=== PATIENT | female | born 1940 | race Caucasian/White ===

== ENCOUNTER 2018-08-19 09:57 | Emergency (ER) | payer OTHER ==
--- OUTSIDE RECORDS SUMMARY | 2018-08-19 10:03 | XMS REPORT | Continuity of Care Document ---
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.[address] AMS, CVA Active [address] CVA Active [address] JES Active [facility] BILLING [address] [place] [address] Multiple Active Problem 08/18/2017 [facility] sclerosis(<span 0 Medical ID="[id number]" Center >Stable</span>) Weakness Active Problem 08/18/[address] HTN (<span Resolved Problem 08/18/2017 [facility] ID="[id number] Medical 3">Confirmed</s Center hung>) Multiple Resolved Problem 08/18/2017 [facility] Center ALTERED MENTAL Active [facility] STATUS, Medical UNSPECIFIED Center LOCAL-REL Active [facility] SYMPTC EPI W Medical CMPLX PART Center SEIZ, Medications Medication Details Route Status Patient Ordering Order Source Instructions Provider Date hydrALAZINE 50 PO, Q8H-05, 0 Active 02/07[facility] mg oral tablet Refill(s) [address] [place] [address] levETIRAcetam 1,500 mg=15 mL, Active 02/07[facility] 100 mg/mL oral [place], Q12H, [address] [facility] solution Refill(s) [place] NIFEdipine 60 mg PO, Daily, 0 Active 02/07[facility] oral tablet, Refill(s) [address] [place] [address] extended release [place] melatonin 3 mg 3 mg, PO, Active 02/07[facility] oral tablet Bedtime, 0 2016 Medical Refill(s) [place] NIFEdipine 60 mg 60 mg, 1 tab, No Longer 02/07[facility] oral tablet, Route: PO, Drug Active 2017 Medical extended release form: ERTAB, [place] Daily, Dosing Weight 52.1, kg, Start date: 02/07/17 9:00:00 CDT, Duration: 30 day, Stop date: 03/08/17 9:00:00 CSTNotes: (Same as: Adalat CC, Procardia XL) Give on empty stomach. Take 1 hour before or 2 hours after meal; "Avoid grapefruit and grapefruit juice". Do not crush NIFEdipine 30 mg 30 mg, 1 tab, No Longer [place] oral tablet, Route: PO, Drug Active 2016 Medical extended release form: ERTAB, Center Daily, Dosing Weight 52.1, kg, Start date: 02/06/17 9:00:00 CDT, Duration: 30 day, Stop date: 03/07/17 9:00:00 CSTNotes: (Same as: Adalat CC, Procardia XL) Give on empty stomach. Take 1 hour before or 2 hours after meal; "Avoid grapefruit and grapefruit juice". melatonin 3 mg, 1 tab, No Longer [place] Route: PO, Drug Active 2016 Medical Form: TAB, Center Dosing Weight 52.1, kg, Bedtime, Start date: 02/04/17 21:00:00 CDT, Duration: 30 day, Stop date: 03/05/17 21:00:00 CSTNotes: (Same as: Melatonin) Dilantin 100 mg, 4 mL, Inactive [place] Route: PO, Drug 2016 Medical form: SUSP, Center Daily, Dosing Weight 52.1, kg, Start date: 02/04/17 9:00:00 CDT, Duration: 1 doses or times, Stop date: 02/04/17 9:00:00 CDTNotes: (Same as: Dilantin) Rinse packet/syringe with water "Caution of interaction with continuous NG feedings: Withhold administration of nutritional supplements for 1-2 hours before and after phenytoin dose". Dilantin 100 mg, 4 mL, No Longer [facility] Route: PO, Drug Active 2016 Medical form: SUSP, Center Q12H, Dosing Weight 52.1, kg, Start date: 02/03/17 21:00:00 CDT, Duration: 30 day, Stop date: 03/05/17 9:00:00 CSTNotes: (Same as: Dilantin) Rinse packet/syringe with water "Caution of interaction with continuous NG feedings: Withhold administration of nutritional supplements for 1-2 hours before and after phenytoin dose". hydrALAZINE 25 50 mg, 1 tab, No Longer 02/03/ [facility] [place] mg oral tablet Route: PO, Drug Active 2016 Medical form: TAB, Center Q8H-05, Dosing Weight 52.1, kg, Start date: 02/03/17 8:00:00 CDT, Stop date: 03/04/17 21:00:00 CSTNotes: (Same as: Apresoline) May interfere w/enteral feedings Take With Food lisinopril 10 mg, 1 tab, Inactive [place] Route: PO, Drug 2016 Medical form: TAB, ONCE, Center Dosing Weight 52.1, kg, Start date: 02/02/17 21:40:00 CDT, Stop date: 02/02/17 21:40:00 CDTNotes: (Same as: Prinivil, Zestril) Dilantin 100 mg, 4 mL, No Longer 02/02/ [place] Route: PO, Drug Active 2016 Medical form: SUSP, Q8H, Center Dosing Weight 52.1, kg, Start date: 02/02/17 16:00:00 CDT, Duration: 30 day, Stop date: 03/04/17 8:00:00 CSTNotes: (Same as: Dilantin) Rinse packet/syringe with water "Caution of interaction with continuous NG feedings: Withhold administration of nutritional supplements for 1-2 hours before and after phenytoin dose". hydrALAZINE 25 25 mg, 1 tab, Inactive 02/02/ [facility] [place] mg oral tablet Route: PO, Drug 2016 Medical form: TAB, TID, Center Dosing Weight 52.1, kg, Start date: 02/02/17 9:00:00 CDT, Duration: 30 day, Stop date: 03/03/17 17:00:00 CSTNotes: (Same as: Apresoline) May interfere w/enteral feedings Take With Food. hydrALAZINE 25 25 mg, 1 tab, No Longer 10/ [facility] [place] mg oral tablet Route: PO, Drug Active 2016 Medical form: TAB, Q8H, Center Dosing Weight 52.1, kg, Start date: 02/02/17 6:36:00 CDT, Duration: 30 day, Stop date: 03/04/17 0:00:00 CSTNotes: (Same as: Apresoline) May interfere w/enteral feedings Take With Food. Insulin regular 6 unit, 0.06 mL, No Longer [facility] Route: SUB-Q, Active 2016 Medical Drug form: SOLN, [place] Sliding Scale, Dosing Weight 52.1, kg, PRN Blood Glucose Results, Start date: 02/01/17 17:19:00 CDT, Duration: 30 day, Stop date: 03/03/17 16:18:00 CSTNotes: (Same as: Humulin R) Roll in palms of hands gently; Do not shake vigorously. "single patient use only" (Restricted to patients requiring a dose > 60 units) WASTE: F/P - Black; E - [facility] Trash Bin Stable for 28 days at room temperature Expires in days from Da te Dextrose 50% 12.5 gm, 25 mL, No Longer [facility] Syringe Route: IVP, Drug Active 2016 Medical Form: INJ, Center Dosing Weight 52.1, kg, PRN, PRN Blood Glucose Results, Start date: 02/01/17 17:19:00 CDT, Duration: 30 day, Stop date: 03/03/17 16:18:00 MANAGER OF COMPENSATION glucagon 1 mg, Route: IM, No Longer [facility] Drug form: Active 2017 Medical PDR/INJ, PRN, Center Dosing Weight 52.1, kg, PRN Blood Glucose Results, Start date: 02/01/17 17:19:00 CDT, Duration: 30 day, Stop date: 03/03/17 16:18:00 MANAGER OF COMPENSATION NIFEdipine 30 mg 30 mg, 1 tab, Inactive [place] oral tablet, Route: PO, Drug 2017 Medical extended release form: ERTAB, Center Daily, Dosing Weight 52.1, kg, Start date: 02/01/17 9:00:00 CDT, Duration: 30 day, Stop date: 03/02/17 9:00:00 CSTNotes: (Same as: Adalat CC, Procardia XL) Give on empty stomach. Take 1 hour before or 2 hours after meal; "Avoid grapefruit and grapefruit juice". Do not crush NIFEdipine 30 mg 30 mg, 1 tab, Inactive [place] oral tablet, Route: PO, Drug 2017 Medical extended release form: ERTAB, Center ONCE, Dosing Weight 52.1, kg, Start date: 01/31/17 16:07:00 CDT, Stop date: 01/31/17 16:07:00 CDTNotes: (Same as: Adalat CC, Procardia XL) Give on empty stomach. Take 1 hour before or 2 hours after meal; "Avoid grapefruit and grapefruit juice". Do not crush Dilantin 100 mg, 2 mL, No Longer [facility] Route: IVP, Drug Active 2016 Medical form: INJ, Q8H, Center Dosing Weight 52.1, kg, Priority: NOW, Start date: 01/31/17 11:23:00 CDT, Duration: 30 day, Stop date: 03/02/17 8:00:00 CSTNotes: (Same as: Dilantin) Do not infuse greater than 50 mg/min. MEDICATION WASTE Product Size: 100 mg Product Wasted: ___ mg Ativan 2 mg, Route: IV, Inactive [facility] ONCE, Dosing 2016 Medical Weight 52.1, kg, Center Start date: 01/31/17 11:10:00 CDT, Stop date: 01/31/17 11:10:00 CDT Dilantin + 1,000 mg, 20 mL, Inactive [facility] sodium chloride Route: IV, ONCE, 2016 Medical 0.9% INJ 100 mL Start date: Center 01/30/17 16:00:00 CDT, Stop date: 01/30/17 16:00:00 CDTNotes: (Same as: Dilantin) Do not infuse greater than 50 mg/min. MEDICATION WASTE Product Size: 100 mg Product Wasted: _0__ mg vancomycin + 0.75 gm, Route: No Longer [facility] sodium chloride IVPB, [id number], Active 2017 Medical 0.9% 250 mL INJ Dosing Weight Center (for IV set) 250 52.1, kg, Start mL date: 01/30/17 15:00:00 CDT, Duration: 7 day, Stop date: 02/06/17 3:00:00 CDT, ABX Indication: Urinary Tract InfectionNotes: TIME CRITICAL MEDICATION (Same As: Vancocin) Infusion rate 2000 mg: infuse over 2.5 hours MEDICATION WASTE Product Size: 1000 mg Product Wasted: 250___ mg Dilantin 1 gm, Route: IV, Inactive [facility] ONCE, Dosing 2017 Medical Weight 52.1, kg, Center Priority: NOW, Start date: 01/30/17 14:36:00 CDT, Stop date: 01/30/17 14:36:00 CDT metoprolol 100 mg, 1 tab, No Longer [place] tartrate Route: PO, Drug Active 2017 Medical form: TAB, Q12H, Center Dosing Weight 52.1, kg, Start date: 01/30/17 10:11:00 CDT, Duration: 30 day, Stop date: 03/01/17 9:00:00 CSTNotes: (Same as: Lopressor) fentaNYL 25 microgram, Inactive [facility] 0.5 mL, Route: 2017 Medical IV, Drug form: Center INJ, ONCE, Dosing Weight 52.1, kg, Start date: 01/30/17 9:08:00 CDT, Stop date: 01/30/17 9:08:00 CDTNotes: (Same as: Sublimaze) Preservative free. vancomycin + 750 mg, Route: Inactive [facility] sodium chloride IVPB, [id number], 2017 Medical 0.9% 250 mL INJ Dosing Weight Center (for IV set) 250 52.1, kg, Start mL date: 01/30/17 5:30:00 CDT, Duration: 7 day, Stop date: 02/05/17 5:30:00 CDT, ABX Indication: Urinary Tract InfectionNotes: TIME CRITICAL MEDICATION (Same As: Vancocin) Infusion rate 2000 mg: infuse over 2.5 hours MEDICATION WASTE Product Size: 1000 mg Product Wasted: ___ mg fentaNYL 25 microgram, Inactive [place] Route: IV, ONCE, 2017 Medical Dosing Weight Center 52.1, kg, Start date: 01/30/17 4:56:00 CDT, Stop date: 01/30/17 4:56:00 CDT fentaNYL 25 microgram, Inactive [place] Route: IV, ONCE, 2017 Medical Dosing Weight Center 52.1, kg, Start date: 01/29/17 22:21:00 CDT, Stop date: 01/29/17 22:21:00 CDT Dextrose 50% 12.5 gm, 25 mL, No Longer [place] Syringe Route: IVP, Drug Active 2016 Medical Form: INJ, Center Dosing Weight 52.1, kg, PRN, PRN Blood Glucose Results, Start date: 01/29/17 21:54:00 CDT, Duration: 30 day, Stop date: 02/28/17 20:53:00 MANAGER OF COMPENSATION glucagon 1 mg, Route: IM, No Longer [facility] Drug form: Active 2016 Medical PDR/INJ, PRN, Center Dosing Weight 52.1, kg, PRN Blood Glucose Results, Start date: 01/29/17 21:54:00 CDT, Duration: 30 day, Stop date: 02/28/17 20:53:00 MANAGER OF COMPENSATION insulin lispro 2 unit, 0.02 mL, No Longer [facility] Route: SUB-Q, Active 2016 Medical Drug form: SOLN, Center Sliding Scale, Dosing Weight 52.1, kg, PRN Blood Glucose Results, Start date: 01/29/17 21:54:00 CDT, Duration: 30 day, Stop date: 02/28/17 20:53:00 CSTNotes: (Same as: Humalog ) Roll in palms of hands gently; Do not shake `vigorously. "Single Patient Use Only " (Restricted to patients requiring a dose > 60 units) WASTE: F/P - Black; E [facility] Trash [facility] Stable for 28 days at room temperature. Expires in days from Da te docusate sodium 100 mg, 1 cap, No Longer [place] Route: PO, Drug Active 2016 Medical form: CAP, Q12H, Center Dosing Weight 52.1, kg, Start date: 01/29/17 21:16:00 CDT, Stop date: 02/28/17 21:00:00 CSTNotes: (Same as: Colace) Lactated Ringers 500 mL, 500 Inactive [place] (Bolus) IV ml/hr, Infuse 2017 Medical Over: 1 hr, Center Route: IV, 500, Drug form: INJ, ONCE, Priority: STAT, Dosing Weight 52.1 kg, Start date: 01/29/17 19:48:00 CDT, Duration: 1 doses or times, Stop date: 01/29/17 19:48:00 CDT Azithromycin 3 500 mg, 2 tab, No Longer [place] Day Dose Pack Route: PO, Drug Active 2017 Medical 500 mg oral form: TAB, Center tablet [id number], Dosing Weight 52.1, kg, Start date: 01/29/17 9:00:00 CDT, Duration: 3 day, Stop date: 01/31/17 9:00:00 CDT, ABX Indication: PneumoniaNotes: Take 1 hour before or 2 hours after meals. (Same As: Zithromax) Saline Flush 10 ml, Route: No Longer [place] 0.9% IVP, Drug Form: Active 2016 Medical INJ, Dosing Center Weight 60, kg, Q12H, Start date: 01/29/17 9:00:00 CDT, Duration: 30 day, Stop date: 02/27/17 21:00:00 CSTNotes: (Same as: BD Posiflush) docusate 100 mg, 1 cap, Inactive [place] Route: PO, Drug 2016 Medical form: CAP, Q12H, Center Dosing Weight 60, kg, Start date: 01/29/17 9:00:00 CDT, Duration: 30 day, Stop date: 02/27/17 21:00:00 CSTNotes: (Same as: Colace) (Do Not Crush) senna 8.6 mg, 1 tab, No Longer [facility] Route: PO, Drug Active 2016 Medical Form: TAB, Center Dosing Weight 60, kg, Q12H, Start date: 01/29/17 9:00:00 CDT, Duration: 30 day, Stop date: 02/27/17 21:00:00 CSTNotes: (Same as: Senokot) famotidine 20 mg, 2 mL, No Longer [place] Route: IVP, Drug Active 2016 Medical form: INJ, Q12H, Center Dosing Weight 60, kg, Start date: 01/29/17 9:00:00 CDT, Duration: 30 day, Stop date: 02/27/17 21:00:00 CSTNotes: (Same as: Pepcid) Can be dilute in 5-10cc NS IVP: Slow IV push over at least 2 minutes. losartan 100 mg, 2 tab, No Longer [place] Route: PO, Drug Active 2016 Medical form: TAB, Center Daily, Dosing Weight 52.1, kg, Start date: 01/29/17 9:00:00 CDT, Duration: 30 day, Stop date: 02/27/17 9:00:00 CSTNotes: (Same as: Cozaar) atorvastatin 40 mg, 1 tab, No Longer [facility] Route: PO, Drug Active 2016 Medical form: TAB, Center Daily, Dosing Weight 52.1, kg, Start date: 01/29/17 9:00:00 CDT, Duration: 30 day, Stop date: 02/27/17 9:00:00 CSTNotes: (Same as: Lipitor) heparin 5,000 unit, Inactive [facility] Route: SUB-Q, 2017 Medical Q8H, Dosing Center Weight 52.1, kg, Start date: 01/29/17 8:00:00 CDT, Duration: 30 day, Stop date: 02/28/17 0:00:00 MANAGER OF COMPENSATION heparin 5,000 unit, 1 No Longer [facility] mL, Route: Active 2016 Medical SUB-Q, Drug Center form: INJ, Q8H, Dosing Weight 52.1, kg, Priority: NOW, Start date: 01/29/17 7:37:00 CDT, Duration: 30 day, Stop date: 02/28/17 0:00:00 CSTNotes: porcine heparin Azithromycin 3 500 mg, 2 tab, Inactive [facility] Day Dose Pack Route: PO, Drug 2017 Medical 500 mg oral form: TAB, Center tablet [id number], Dosing Weight 52.1, kg, Priority: STAT, Start date: 01/29/17 6:14:00 CDT, Duration: 3 day, Stop date: 01/31/17 6:14:00 CDT, ABX Indication: PneumoniaNotes: Take 1 hour before or 2 hours after meals. (Same As: Zithromax) calcium 500 mg, 1 tab, No Longer [place] carbonate 500 mg Route: PO, Drug Active 2016 Medical (200 mg form: CHE[place]AB, Center elemental PRN, Dosing calcium) oral Weight 52.1, kg, tablet PRN Abnormal Lab Result, FOR ICU USE ONLY, Start date: 01/29/17 6:12:00 CDT, Duration: 30 day, Stop date: 02/28/17 5:11:00 CSTNotes: (Same As: Tums) Calcium Carbonate 500 ih=658 mg elemental calcium Dose= mg calcium carbonate ( mg elemental calcium) calcium 1 gm, 10 mL, No Longer [place] gluconate + Route: IVPB, Active 2016 Medical sodium chloride PRN, Dosing Center 0.9% INJ 50 mL Weight 52.1, kg, PRN Abnormal Lab Result, Start date: 01/29/17 6:12:00 CDT, Duration: 30 day, Stop date: 02/28/17 5:11:00 MANAGER OF COMPENSATION, FOR ICU USE ONLYNotes: WASTE: F/P - Sink; E - [facility] Trash [facility] sodium phosphate 30 mmol, 10 mL, No Longer [place] + sodium Route: IVPB, Active 2016 Medical chloride 0.9% PRN, Dosing Center INJ 250 mL Weight 52.1, kg, PRN Abnormal Lab Result, Start date: 01/29/17 6:12:00 CDT, Duration: 30 day, Stop date: 02/28/17 5:11:00 MANAGER OF COMPENSATION, FOR ICU USE ONLY potassium 20 mEq, 15 mL, No Longer [place] chloride Route: [place], Drug Active 2016 Medical form: LIQ, PRN, Center Dosing Weight 52.1, kg, PRN Abnormal Lab Result, Start date: 01/29/17 6:12:00 CDT, Duration: 30 day, Stop date: 02/28/17 5:11:00 MANAGER OF COMPENSATION, FOR ICU USE ONLYNotes: (Same as: Potassium Chloride) potassium 15 mmol, 5 mL, No Longer [place] phosphate + Route: IVPB, Active 2016 Medical sodium chloride PRN, Dosing Center 0.9% INJ 250 mL Weight 52.1, kg, PRN Abnormal Lab Result, Start date: 01/29/17 6:12:00 CDT, Duration: 30 day, Stop date: 02/28/17 5:11:00 MANAGER OF COMPENSATION, FOR ICU USE ONLYNotes: (Same as: K Phosphate.) 1 mMol phoshate has 1.47 mEq potassium Infuse over 4 hours magnesium oxide 800 mg, 2 tab, No Longer [place] Route: PO, Drug Active 2016 Medical form: TAB, PRN, Center Dosing Weight 52.1, kg, PRN Abnormal Lab Result, FOR ICU USE ONLY, Start date: 01/29/17 6:12:00 CDT, Duration: 30 day, Stop date: 02/28/17 5:11:00 CSTNotes: (Same as: Mag-Ox 400) Magnesium oxide [id number] elemental magnesium Dose=____mg magnesium oxide (___mg elemental magnesium) potassium 2 pkt, Route: No Longer [place] phosphate-sodium PO, Drug Form: Active 2017 Medical phosphate 250 PDR/REC, Dosing Center mg-280 mg-160 mg Weight 52.1, kg, oral powder for PRN, PRN reconstitution Abnormal Lab Result, FOR ICU USE ONLY, Start date: 01/29/17 6:12:00 CDT, Duration: 30 day, Stop date: 02/28/17 5:11:00 CSTNotes: (Same as: Phos-NaK) Each 1.5 gm pkt has 250mg phosphorous. Mix w/2.5oz water and stir. magnesium 2 gm, 50 mL, No Longer [place] sulfate Route: IVPB, Active 2017 Medical Drug form: INJ, Center PRN, Dosing Weight 52.1, kg, PRN Abnormal Lab Result, Start date: 01/29/17 6:12:00 CDT, Duration: 30 day, Stop date: 02/28/17 5:11:00 MANAGER OF COMPENSATION, FOR ICU USE ONLYNotes: WASTE: F/P - Sink; E - [facility] Trash [facility] Lactated Ringers 1,000 mL, 1,000 Inactive [place] (Bolus) IV ml/hr, Infuse 2017 Medical Over: 1 hr, Center Route: IV, 1,000, Drug form: INJ, ONCE, Priority: STAT, Dosing Weight 52.1 kg, Start date: 01/29/17 6:09:00 CDT, Duration: 1 doses or times, Stop date: 01/29/17 6:09:00 CDT vancomycin + 750 mg, Route: Inactive [place] sodium chloride IV, Q12H, Dosing 2017 Medical 0.9% 250 mL INJ Weight 52.1, kg, Center (for IV set) 250 Start date: mL 01/29/17 5:35:00 CDT, Duration: 30 day, Stop date: 02/27/17 21:00:00 MANAGER OF COMPENSATION, ABX Indication: Fever of Unknown Source 0-60 days of ageNotes: TIME CRITICAL MEDICATION (Same As: Vancocin) Infusion rate 2001 mg: infuse over 2.5 hours MEDICATION WASTE Product Size: 1000 mg Product Wasted: ___ mg Plegridy 125 microgram, Active [place] SUB-Q, Q14D, 0 2016 Medical Refill(s) Center risedronate 150 150 mg=1 tab, Active [facility] mg oral tablet PO, qMonth 2017 Medical Center losartan 100 mg 100 mg=1 tab, Active [facility] oral tablet PO, Daily, 0 2016 Medical Refill(s) Center atorvastatin 40 40 mg=1 tab, PO, Active [facility] mg oral tablet Daily, 0 2016 Medical Refill(s) Center oxybutynin 50 mg, PO, Active [facility] Daily, 0 2016 Medical Refill(s) Center nitroprusside 50 mg, PO, ONCE, No Longer [facility] 0 Refill(s) Active 2017 Medical Center metoprolol 100 mg=1 tab, Active [facility] tartrate 100 mg PO, BID, 0 2016 Medical oral tablet Refill(s) Center fentaNYL 25 microgram, Inactive [place] Route: IV, ONCE, 2017 Medical Dosing Weight Center 52.1, kg, Start date: 01/29/17 4:11:00 CDT, Stop date: 01/29/17 4:11:00 CDT cefepime 1 gm, Route: IV, No Longer [facility] Drug form: INJ, Active 2017 Medical Q6H, Dosing Center Weight 52.1, kg, Start date: 01/29/17 4:04:00 CDT, Duration: 30 day, Stop date: 02/28/17 0:00:00 MANAGER OF COMPENSATION, ABX Indication: Fever of Unknown Source 0-60 days of ageNotes: (Same As: Maxipime) MEDICATION WASTE Product Size: 1000 mg Product Wasted: ___ mg Keppra 1,500 mg, 3 tab, No Longer [place] Route: [place], Drug Active 2016 Medical form: TAB, Q12H, Center Dosing Weight 52.1, kg, Start date: 01/29/17 3:34:00 CDT, Stop date: 02/27/17 21:00:00 CSTNotes: (Same as:Keppra) Visipaque 100 mL, Route: Inactive [place] 320mg/ml IVP, Drug Form: 2016 Medical SOLN, Dosing Center Weight 52.1, kg, ONCALL, STAT, Start date: 01/29/17 2:54:00 CDT, Duration: 1 doses or times, Dose=2.2ml/kg, Max [id number] -- "To be infused by Radiology Staff ONLY" ocular lubricant 1 drp, Route: No Longer [place] BOTH EYES, Q6H, Active 2016 Medical Drug form: SOLN, Center Start date: 01/29/17 0:00:00 CDT, Duration: 30 day, Stop date: 02/27/17 18:00:00 CSTNotes: (Same as: Aquasite) Lactated Ringers 1,000 mL, 1,000 No Longer [place] (Bolus) IV ml/hr, Infuse Active 2016 Medical Over: 1 hr, Center Route: IV, 1,000, Drug form: INJ, ONCE, Priority: STAT, Dosing Weight 60 kg, Start date: 01/28/17 23:55:00 CDT, Duration: 1 doses or times, Stop date: 01/28/17 23:55:00 CDT Tylenol 325 mg, 1 tab, No Longer [place] Route: PO, Drug Active 2016 Medical form: TAB, Q6H, Center Dosing Weight 60, kg, PRN For Temp > 100.4 F, Start date: 01/28/17 22:05:00 CDT, Duration: 30 day, Stop date: 02/27/17 22:04:00 CSTNotes: Do not exceed 4 gm/day. (Same as: Tylenol) Saline Flush 10 ml, Route: No Longer [place] 0.9% IVP, Drug Form: Active 2016 Medical INJ, Dosing Center Weight 60, kg, PRN, PRN Line Flush, Start date: 01/28/17 21:19:00 CDT, Duration: 30 day, Stop date: 02/27/17 20:18:00 CSTNotes: (Same as: BD Posiflush) nystatin topical 1 appl, Route: No Longer [place] 100,000 units/g TOP, PRN, Drug Active 2016 Medical powder form: PWDR, PRN [facility], Start date: 01/28/17 21:19:00 CDT, Duration: 30 day, Stop date: 02/27/17 20:18:00 CSTNotes: (Same as:Mycostatin, Nilstat) For external use only. BD Normal Saline 10 mL, Route: No Longer [place] Flush IV, Drug Form: Active 2016 Medical INJ, Q12H, Start Center date: 01/28/17 21:00:00 CDT, Duration: 30 day, Stop date: 02/27/17 9:00:00 CSTNotes: (Same as: BD Posiflush) chlorhexidine 15 mL, Route: No Longer [place] topical 0.12% Swab Mouth, Active 2016 Medical liquid Q12H, Drug form: [place] LIQ, Start date: 01/28/17 21:00:00 CDT, Duration: 30 day, Stop date: 02/27/17 9:00:00 CSTNotes: (Same As: Peridex) chlorhexidine 15 mL, Route: No Longer [place] topical 0.12% Swab Mouth, PRN, Active 2016 Medical liquid Drug form: [facility] PRN Other -See Comment, Start date: 01/28/17 20:24:00 CDT, Duration: 30 day, Stop date: 02/27/17 19:23:00 CSTNotes: (Same As: Peridex) labetalol 10 mg, Route: Inactive [place] IV, ONCE, Dosing 2017 Medical Weight 60, kg, Center Start date: 01/28/17 20:21:00 CDT, Stop date: 01/28/17 20:21:00 CDT cefepime 1 gm, Route: Inactive [place] IVPB, ONCE, 2017 Medical Dosing Weight Center 60, kg, Priority: STAT, Start date: 01/28/17 16:53:00 CDT, Duration: 1 doses or times, Stop date: 01/28/17 16:53:00 CDT, ABX Indication: Pneumonia vancomycin 1,000 mg, Route: Inactive [place] IVPB, Drug form: 2017 Medical INJ, ONCE, Center Dosing Weight 60, kg, Priority: STAT, Start date: 01/28/17 16:53:00 CDT, Duration: 1 doses or times, Stop date: 01/28/17 16:53:00 CDT, ABX Indication: PneumoniaNotes: TIME CRITICAL MEDICATION (Same As: Vancocin) Infusion rate 2001 mg: infuse over 2.5 hours MEDICATION WASTE Product Size: 1000 mg Product Wasted: ___ mg propofol INJ 1,000 mg, 100 No Longer [place] 1,000 mg mL, Rate: Active 2017 Medical Titrate, Start Center Dose: 5 microgram/kg/min , Titration: 5 microgram/kg/min every 15 min, Goal(s): RASS -2, Max Dose: 50 microgram/kg/min , Route: IV, Dosing Weight 60 kg, Total Volume: 100, Start date: 01/28/17 16:51:00 CDT, Duratio...Notes: If Diprivan - change bottle & tubing every 12 hr Per state nursing law propofol can only be given by a nurse if patient is intubated or being intubated (unless the nurse is a OCEANOGRAPHER PHYSICAL). Same as: Diprivan propofol 500 mg 500 mg, 50 mL, Inactive [place] Rate: Titrate, 2016 Medical Start Dose: 5 Center microgram/kg/min , Titration: 5 microgram/kg/min every 15 min, Goal(s): MAP 65-85, Max Dose: 50 microgram/kg/min , Route: IV, Dosing Weight 60 kg, Total Volume: 50, Start date: 01/28/17 16:14:00 CDT, Duration:... fentaNYL 1,000 microgram, No Longer 01/28/ [facility] 1000microgram/20 20 mL, Rate: Active 2016 Medical ml drip (pyxis) Titrate, Start Center 1,000 microgram Dose: 50 microgram/hr, Titration: 25 microgram/hour every 15 minutes, Goal(s): MAP>65, Max Dose: 300 microgram/hr, Route: IV, Total Volume: 20, Start date: 01/28/17 15:07:00 CDT, Duration: 30 day, Stop date... midazolam 50mg/ 50 mg, 50 mL, Inactive [facility] NS 50ml drip Rate: Titrate, 2016 Medical (premixed) 50 mg Start Dose: 1 Center mg/hr, Titration: Rebolus 1 mg IV and/or Titrate infusion by 1 mg/hour every 30 minutes, Goal(s): MAP>65, Max Dose: 10 mg/hr, Route: IV, Total Volume: 50, Start date: 01/28/17 15:07:00 CDT, Duration: 30 day,...Notes: (Same as: Versed) Saline Flush 10 mL, Route: No Longer 01/28/ [facility] 0.9% IVP, Drug Form: Active 2016 [facility] INJ, kg, PRN, Center PRN Line Flush, Start date: 01/28/17 15:04:00 CDT, Duration: 30 day, Stop date: 02/27/17 14:03:00 CSTNotes: (Same as: BD Posiflush) Allergies, Adverse Reactions, Alerts Substance Category Reaction Severity Reaction Status Date Comments Source type Reported penicillins Assertion Drug Active [facility] allergy [facility] sulfa drugs Assertion Drug Active [facility] [place] Immunizations Immunization Date Given Site Status Last Comments Source Updated pneumococcal 10/15/2005 Right arm completed [facility] 23-valent vaccine [facility] Results Order Name Results Value Reference Date Interpretation Comments Source Range CHEM PANEL eGFR 99 02/04 Result Comment: The eGFR is calculated using the CKD-EPI formula. In most young, healthy individuals the eGFR will be >90 mL/ min/1.73m2. The eGFR declines with age. An eGFR of 60-89 may be normal in [facility] mL/min/1.7 /2016 some populations, particularly the elderly, for whom the CKD-EPI formula has not been extensively validated. Use of the eGFR is not recommended in the following populations: [address] Individuals with unstable creatinine concentrations, including patients and those with serious co-morbid conditions. Patients with extremes in muscle mass or diet. The data above are obtained from the National Kidney Disease Education Program (NKDEP) which additionally recommends that when the eGFR is used in patients with extremes of body mass index for purposes of drug dosing, the eGFR should be multiplied by the estimated BMI. CHEM PANEL CO2 22 meq/L 24 - 32 02/[address] CHEM PANEL Chloride Lvl 105 meq/L 95 - 109 02/[address] CHEM PANEL Calcium Lvl 8.6 mg/dL 8.5 - 10.5 02/[address] CHEM PANEL Glucose Lvl 143 mg/dL 70 - 99 02/[address] CHEM PANEL Sodium Lvl 137 meq/L 135 - 145 02/[address] CHEM PANEL Potassium Lvl 4.1 meq/L 3.5 - 5.1 02/[address] CHEM PANEL Creatinine 0.46 mg/dL 0.50 - 02/04 [facility] Lvl 1.40 [facility] CHEM PANEL BUN 22 mg/dL 7 - 22 02/[address] CHEM PANEL AGAP 14.1 meq/L 10.0 - 02/04 [facility] 20.0 [facility] HEMATOLOGY Basophils # 0.1 K/CMM 0.0 - 0.2 02/[address] HEMATOLOGY Basophils 1.0 % 0.0 - 1.0 02/[address] HEMATOLOGY Segs-Bands # 5.2 K/CMM 1.5 - 8.1 02/[address] HEMATOLOGY Lymphocytes # 1.6 K/CMM 1.0 - 5.5 02/[address] HEMATOLOGY Monocytes # 1.2 K/CMM 0.0 - 0.8 02/[address] HEMATOLOGY Eosinophils # 0.2 K/CMM 0.0 - 0.5 02/[address] HEMATOLOGY Eosinophils 2.7 % 0.0 - 4.0 02/[address] HEMATOLOGY Monocytes 14.1 % 2.0 - 12.0 02/04 [facility] HEMATOLOGY Lymphocytes 19.5 % 20.0 - 02/04 40.0 [facility] HEMATOLOGY Segs 62.7 % 45.0 - 02/04 75.0 [facility] HEMATOLOGY RDW 13.3 % 11.5 - 02/04 [place] 14.5 [facility] HEMATOLOGY Platelet 179 K/CMM 133 - 450 02/04 [facility] HEMATOLOGY MPV 9.9 fL 7.4 - 10.4 02/04 [facility] HEMATOLOGY MCHC 34.3 g/dL 32.0 - 02/04 [facility] 36.0 [facility] HEMATOLOGY Hgb 11.7 g/dL 12.0 - 02/04 [facility] 16.0 [facility] HEMATOLOGY Hct 34.0 % 36.0 - 02/04 48.0 [facility] HEMATOLOGY MCV 90.1 fL 80.0 - 02/04 98.0 [facility] HEMATOLOGY MCH 30.9 pg 27.0 - 02/04 [place] 31.0 [facility] HEMATOLOGY WBC 8.3 K/CMM 3.7 - 10.4 02/04 [facility] HEMATOLOGY RBC 3.78 M/CMM 4.20 - 02/04 [facility] 5.40 [facility] Abdomen AP Abdomen AP DX EXAM: XR ABDOMEN 1 VIEW 02/03 - - [facility] DATE: 02/03/2017 7:37 AM CDT Read by: Sinan Marshall MD Dictated Date/time: 02/03/17 13:21 Electronically Signed by: Sinan Marshall MD 02/03/17 13:22 FINAL REPORT INDICATION: - Dobbhoff placement COMPARISON: 01/28/2017 TECHNIQUE: Single AP view of the abdomen. 1 image(s) obtained. FINDINGS: Lines and tubes: Feeding tube tip overlies the gastric antrum. Guidewire is in place. Lower thorax: Left retrocardiac airspace opacity. This may represent singly or any combination of layering pleural effusion, subsegmental atelectasis and/or pneumonia. Bowel: Nonobstructive bowel gas pattern. Solid organs: No abnormal mass or organomegaly seen. Calcifications: No abnormal calcifications found. Bones: No acute abnormality. Other: None IMPRESSION: 1. Tubes, as above. 2. Nonobstructive bowel gas pattern. CHEM PANEL Phosphorus 2.6 mg/dL 2.5 - 4.5 02/03 [facility] CHEM PANEL eGFR 102 02/03 Result Comment: The eGFR is calculated using the CKD-EPI formula. In most young, healthy individuals the eGFR will be >90 mL/ min/1.73m2. The eGFR declines with age. An eGFR of 60-89 may be normal in [facility] mL/min/1. some populations, particularly the elderly, for whom the CKD-EPI formula has not been extensively validated. Use of the eGFR is not recommended in the following populations: [address] Individuals with unstable creatinine concentrations, including patients and those with serious co-morbid conditions. Patients with extremes in muscle mass or diet. The data above are obtained from the National Kidney Disease Education Program (NKDEP) which additionally recommends that when the eGFR is used in patients with extremes of body mass index for purposes of drug dosing, the eGFR should be multiplied by the estimated BMI. CHEM PANEL Calcium Lvl 8.4 mg/dL 8.5 - 10.5 02/03 [facility] CHEM PANEL CO2 25 meq/L 24 - 32 02/[address] CHEM PANEL Glucose Lvl 170 mg/dL 70 - 99 02/[address] CHEM PANEL BUN 17 mg/dL 7 - 22 02/[address] CHEM PANEL Chloride Lvl 105 meq/L 95 - 109 02/[address] CHEM PANEL Creatinine 0.41 mg/dL 0.50 - 02/03 [facility] Lvl 1.40 [facility] CHEM PANEL Sodium Lvl 137 meq/L 135 - 145 02/[address] CHEM PANEL Potassium Lvl 4.9 meq/L 3.5 - 5.1 02/[address] CHEM PANEL AGAP 11.9 meq/L 10. - 02/03 [facility] 20. [facility] CHEM PANEL Magnesium Lvl 2.2 mg/dL 1.8 - 2.4 02/[address] CHEM PANEL Procalcitonin 0.31 ng/mL 0.00 - 02/03 [facility] Lvl 0. [facility] HEMATOLOGY Hgb 12.3 g/dL 12.0 - 02/03 [facility] 16.0 [facility] HEMATOLOGY Hct 35.9 % 36.0 - 02/03 48.0 [facility] HEMATOLOGY MCHC 34.2 g/dL 32.0 - 02/03 36.0 [facility] HEMATOLOGY MCH 30.9 pg 27.0 - 02/03 31.0 [facility] HEMATOLOGY MCV 90.4 fL 80.0 - 02/03 98.0 [facility] HEMATOLOGY WBC 6.9 K/CMM 3.7 - 10.4 02/03 [facility] HEMATOLOGY RBC 3.97 M/CMM 4.20 - 02/03 [place] 5.40 [facility] HEMATOLOGY MPV 10.4 fL 7.4 - 10.4 02/03 [facility] HEMATOLOGY Platelet 146 K/CMM 133 - 450 02/03 [facility] HEMATOLOGY RDW 13.5 % 11.5 - 02/03 14.5 [facility] HEMATOLOGY Eosinophils 1.7 % 0.0 - 4.0 02/03 [facility] HEMATOLOGY Monocytes 15.3 % 2.0 - 12.0 02/03 [facility] HEMATOLOGY Lymphocytes 18.8 % 20.0 - 02/03 40.0 [facility] HEMATOLOGY Segs 63.8 % 45.0 - 02/03 [facility] 75.0 [facility] HEMATOLOGY Lymphocytes # 1.3 K/CMM 1.0 - 5.5 02/03 2016 [facility] HEMATOLOGY Monocytes # 1.1 K/CMM 0.0 - 0.8 02/03 [facility] HEMATOLOGY Eosinophils # 0.1 K/CMM 0.0 - 0.5 02/03 [facility] HEMATOLOGY Segs-Bands # 4.4 K/CMM 1.5 - 8.1 02/03 [facility] HEMATOLOGY Basophils 0.4 % 0.0 - 1.0 02/03 [facility] CHEM PANEL Phosphorus 2.3 mg/dL 2.5 - 4.5 02/[address] [place] [address] CHEM PANEL Phosphorus 1.8 mg/dL 2.5 - 4.5 02/02 [facility] CHEM PANEL Magnesium Lvl 2.0 mg/dL 1.8 - 2.4 02/02 [facility] CHEM PANEL Procalcitonin 0.59 ng/mL 0.00 - 02/02 [facility] Lvl 0. [facility] CHEM PANEL eGFR 98 02/02 Result Comment: The eGFR is calculated using the CKD-EPI formula. In most young, healthy individuals the eGFR will be >90 mL/ min/1.73m2. The eGFR declines with age. An eGFR of 60-89 may be normal in [facility] mL/min/1. some populations, particularly the elderly, for whom the CKD-EPI formula has not been extensively validated. Use of the eGFR is not recommended in the following populations: [address] Individuals with unstable creatinine concentrations, including patients and those with serious co-morbid conditions. Patients with extremes in muscle mass or diet. The data above are obtained from the National Kidney Disease Education Program (NKDEP) which additionally recommends that when the eGFR is used in patients with extremes of body mass index for purposes of drug dosing, the eGFR should be multiplied by the estimated BMI. CHEM PANEL Calcium Lvl 8.2 mg/dL 8.5 - 10.5 02/02 [facility] CHEM PANEL Chloride Lvl 108 meq/L 95 - 109 02/[address] CHEM PANEL AGAP 11.5 meq/L 10.0 - 02/02 20. [facility] CHEM PANEL CO2 25 meq/L 24 - 32 02/[address] CHEM PANEL Creatinine 0.47 mg/dL 0.50 - 02/02 [facility] Lvl 1.40 [facility] CHEM PANEL Potassium Lvl 4.5 meq/L 3.5 - 5.1 02/02 [facility] CHEM PANEL Sodium Lvl 140 meq/L 135 - 145 02/[address] [place] [address] CHEM PANEL BUN 16 mg/dL 7 - 22 02/02 [facility] CHEM PANEL Glucose Lvl 145 mg/dL 70 - 99 02/[address] HEMATOLOGY RDW 13.6 % 11.5 - 02/02 [facility] 14. [facility] HEMATOLOGY Platelet 126 K/CMM 133 - 450 02/[address] HEMATOLOGY MPV 9.6 fL 7.4 - 10.4 02/02 [facility] HEMATOLOGY WBC 6.6 K/CMM 3.7 - 10.4 02/02 [facility] HEMATOLOGY RBC 3.83 M/CMM 4.20 - 02/02 5.40 [facility] HEMATOLOGY MCHC 33.7 g/dL 32.0 - 02/02 36.0 [facility] HEMATOLOGY MCH 30.6 pg 27.0 - 02/02 31.0 [facility] HEMATOLOGY Hgb 11.7 g/dL 12.0 - 02/02 16.0 [facility] HEMATOLOGY Hct 34.8 % 36.0 - 02/02 48.0 [facility] HEMATOLOGY MCV 90.8 fL 80.0 - 02/02 98.0 [facility] HEMATOLOGY Eosinophils # 0.1 K/CMM 0.0 - 0.5 02/02 [facility] HEMATOLOGY Monocytes # 0.9 K/CMM 0.0 - 0.8 02/02 [facility] HEMATOLOGY Lymphocytes # 1.8 K/CMM 1.0 - 5.5 02/02 [facility] HEMATOLOGY Basophils 0.7 % 0.0 - 1.0 02/02 [facility] HEMATOLOGY Segs-Bands # 3.8 K/CMM 1.5 - 8.1 02/02 [facility] HEMATOLOGY Eosinophils 1.1 % 0.0 - 4.0 02/02 [facility] HEMATOLOGY Lymphocytes 26.8 % 20.0 - 02/02 40.0 [facility] HEMATOLOGY Monocytes 13.1 % 2.0 - 12.0 02/02 [facility] HEMATOLOGY Segs 58.3 % 45.0 - 02/02 [place] 75.0 [facility] PARATHYROID Ca Ion WB 1.04 1.05 - 02/02 [facility] PROFILE mMol/L . [facility] PARATHYROID Ca Norm WB 1.08 1. - 02/02 [facility] PROFILE mMol/L . [facility] Brain w/wo Brain w/wo EXAM: MRI BRAIN WITH AND WITHOUT CONTRAST 02/02 - [facility] contrast contrast MRI /2016 - [facility] MRI This report was dictated by a Nat Instructor/Fellow. I have personally reviewed the images as Center well as the Resident's interpretation and agree with the findings. DATE: 02/02/2017 Read by: Roula Barrett MD Resident: Roula Barrett MD Dictated Date/time: 02/02/17 10:50 Electronically Signed by: Sotero Winters 02/02/17 15:51 FINAL REPORT INDICATION: - Seizures with decreased level of consciousness, not improved , concerns for brain injury COMPARISON: MRI brain dated 01/29/2017 TECHNIQUE: Multiplanar, multisequence non-contrast MRI images of the brain. Multiplanar imaging is subsequently obtained following intravenous gadolinium contrast. IV contrast: 10 mL of Dotarem FINDINGS: No significant change is seen relative to 01/29/2017. Extensive confluent T2/FLAIR hyperintensity in the subcortical and periventricular white matter is redemonstrated. Diffuse prominence of the ventric les and cerebral sulci is stable. There is no evidence of extra-axial fluid collection or midline shift. Diffusion-weighted imaging does not reveal acute ischemic change. No abnormal parenchymal or leptomeningeal enhancement is seen. There is persistent opacification of the left maxillary sinus with scattered mucosal thickening of the paranasal sinuses. No abnormal susceptibility artifact is seen. IMPRESSION: 1. No adverse interval change relative to 01/29/2017. 2. 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 CHEM PANEL Magnesium Lvl 1.9 mg/dL 1.8 - 2.4 02/01 [facility] CHEM PANEL Lactic Acid 1.3 mMol/L 0.5 - 2.2 02/01 [facility] PARATHYROID Ca Ion WB 1.10 . - 02/01 [facility] PROFILE mMol/L . [facility] PARATHYROID Ca Norm WB 1.13 1. - 02/01 [facility] PROFILE mMol/L . [facility] TOXICOLOGY Vanco Tr TND 0300 02/01 [facility] TOXICOLOGY Vanco Tr 16.4 ug/ml 02/01 [facility] ANEMIA Vitamin B12 1271 pg/mL 254 - 1320 01/31 [facility] CHEM PANEL Vitamin B6 6.8 ug/L 2.0 - 32.8 01/31 Result Comment: Performed At: [facility] [address] [place] [address] [id number] [facility] Tam Hui MD Ph:[phone] [place] CHEM PANEL Procalcitonin 1.36 ng/mL 0.00 - 01/31 [facility] 0. [facility] CHEM PANEL Lactic Acid 1.5 mMol/L 0.5 - 2.2 01/31 [facility] HEMATOLOGY Sed Rate 21 mm/h 0 - 20 01/31 [facility]2016 [facility] IMMUNOLOGY SS-B (La) Ab null <=0.9 AI 01/31 [facility] IMMUNOLOGY SS-A (Ro) Ab null <=0.9 AI 01/31 [facility] IMMUNOLOGY C-REACTIVE 36.5 mg/L <=2.9 mg/L 01/31 [facility] CHEM PANEL Lactic Acid 1.8 mMol/L 0.5 - 2.2 01/31 [facility] PARATHYROID Ca Norm WB 1.11 1.05 - 01/31 [facility] PROFILE mMol/L 1. [facility] PARATHYROID Ca Ion WB 1.11 1.05 - 01/31 [facility] PROFILE mMol/L 1. [facility] TOXICOLOGY Vanco Tr TND 0530 01/30 [facility] TOXICOLOGY Vanco Tr 8.0 ug/ml 01/[address] Chest 1view Chest 1view EXAM: XR CHEST 1 VIEW 01/30 - [facility] DX DX - [facility] DATE: 01/30/2017 12:00 AM CDT Read by: Jack Torres MD Dictated Date/time: 01/30/17 07:47 Electronically Signed by: Jack Torres MD 01/30/17 07:48 FINAL REPORT INDICATION: - intubated COMPARISON: 01/28/2017 TECHNIQUE: AP chest FINDINGS: Lines, tubes and hardware: The endotracheal tube and gastric tube are stable in position. Lungs and pleura: Hazy infrahilar opacities are seen bilaterally, possibly corresponding to the groundglass opacity seen on the recent CT, possibly representing aspiration, other infection, and/or atele ctasis. No pleural effusion or pneumothorax is seen. Heart and mediastinum: The heart size is normal for technique. The aorta is tortuous and calcified. Bones: The osseous structures are stable. IMPRESSION: 1. Bilateral infrahilar airspace opacities, possibly representing aspiration, other infection, and/or atelectasis. Brain w/wo Brain w/wo EXAM: MRI BRAIN WITH AND WITHOUT CONTRAST 01/29 - [facility] contrast contrast MRI /2017 - [facility] DATE: 01/29/2017 Read by: Yehuda Stevens MD Dictated Date/time: 01/29/17 19:06 Electronically Signed by: Yehuda Stevens MD 01/29/17 19:18 FINAL REPORT INDICATION: Concern for stroke COMPARISON: Brain CT dated 01/28/2017 TECHNIQUE: Multiplanar, multisequence non-contrast MRI images of the brain. Multiplanar imaging is subsequently obtained following intravenous gadolinium contrast. IV contrast: 10 mL Dotarem FINDINGS: Some of the DWI images are limited by distortion. However, no diffusion restriction is evident. Susceptibility weighted images fail to disclose any underlying acute intracranial hemorrhage. No intracranial mass or extra-axial collection is evident. A small round T2 hyperintense, nonenhancing focus in the right cerebellum is nonspecific and likely represent sequela of prior insult. A similar but smaller lesion is present in the left cerebellum. The re is diffuse cerebral and cerebellar volume loss with associated ventriculomegaly in widening of the extra-axial spaces. There are confluent T2 hyperintensities in the periventricular/deep white matter . There are superimposed lacunar infarcts in the basal ganglia and thalami. The ventricles and basal cisterns are patent. Ventriculomegaly is present without suggestion of ventriculo-sulcal disproportion. The flow voids of the major arteries at the cranial base are preserved. Post-contrast images reveal no abnormal parenchymal or leptomeningeal enhancement. The vascular structures enhance uneventfully. Again, there is diffuse T2 signal elevation within the left maxillary antrum. There are nonspecific mucosal changes in the rest of the paranasal sinuses. Trace mastoid effusions an flow within the depen dent portions of the nasopharynx are nonspecific. IMPRESSION: No acute intracranial hemorrhage or recent large territory ischemia Advanced chronic microvascular ischemic changes in the white matter with superimposed multifocal lacunar infarcts. T2 hyperintense lesions in the cerebellum likely also represent sequela of remote insults. Diffuse cortical volume loss with ventriculomegaly. No suggestion of ventriculo-sulcal disproportion ANEMIA Vitamin B12 1449 pg/mL 254 - 1320 01/29 [facility] STUDY Lvl /2016 [facility] CARDIAC Troponin-T 0.010 0.000 - 10/21 [facility] ENZYMES ng/mL 0.100 [facility] CARDIAC Troponin-I 0.11 ng/mL 0.00 - 01/29 [facility] ENZYMES 0.40 [facility] CHEM PANEL Vitamin B6 5.4 ug/L 2.0 - 32.8 01/29 Result Comment: Performed At: [facility] [address] [place], [place] [id number] [facility] Melissa Hui MD Ph:[phone] [facility] HEMATOLOGY Sed Rate 5 mm/h 0 - 01/29 [facility] IMMUNOLOGY C-ANCA Negative Negative 01/29 [facility] (01/29/17 10:25 AM) [facility] IMMUNOLOGY P-ANCA Negative Negative 01/29 [facility] (01/29/17 10:25 AM) [facility] IMMUNOLOGY C-REACTIVE 49.7 mg/L <=2.9 mg/L 01/29 [facility] IMMUNOLOGY SS-B (La) Ab null <=0.9 AI 01/29 [facility] IMMUNOLOGY SS-A (Ro) Ab null <=0.9 AI 01/29 [facility] IMMUNOLOGY YANDY Negative Negative 01/29 [facility] (01/29/17 10:25 AM) [facility] IMMUNOLOGY DNA Ab (DS) Negative Negative 01/29 [facility] (01/29/17 10:25 AM) [facility] CARDIAC Troponin-T 0.015 0.000 - 01/29 [facility] ENZYMES ng/mL 0. [facility] CARDIAC Troponin-I 0.18 ng/mL 0.00 - 01/29 [facility] ENZYMES 0. [facility] CHEM PANEL Lipase Lvl 125 unit/L 73 - 393 01/29 [facility] CHEM PANEL Amylase Lvl 165 unit/L 25 - 115 01/29 [facility]2016 [facility] Gallbladder Gallbladder EXAM: US ABDOMEN LIMITED 01/29 - [facility] /2016 - [facility] This report was dictated by a Nat Instructor/Fellow. I have personally reviewed the images as Center well as the Resident's interpretation and agree with the findings. DATE: 01/29/2017 6:32 AM CDT Read by: Siva Barlow MD Resident: Siva Barlow MD Dictated Date/time: 01/29/17 11:46 Electronically Signed by: Jluis Turner MD 01/29/17 12:40 FINAL REPORT INDICATION: - rule out acute cholecystitis ADDITIONAL INFORMATION: None. COMPARISON: CTA 01/29/2017. TECHNIQUE: Multiplanar grayscale and color Doppler ultrasound of the right upper quadrant. FINDINGS: Liver: Craniocaudal length: 14.1 cm. Echogenicity: Normal. Surface: Normal. Mass (size and location): None. Portal vein: Normal at 0.8 cm. Bile ducts: Common bile duct diameter: 0.4 cm. Intrahepatic ducts: Normal. Gallbladder: Gallstones: None. Gallbladder sludge: None. Gallbladder wall: 0.2 cm. Pericholecystic fluid: None. Sonographic Escobedo sign: Absent. Pancreas: Head and uncinate process: Partially seen. Body and tail: Not seen. Spleen: Normal measuring 9.0 x 4.0 x 4.3 cm. Ascites: None. Other: Bilateral small pleural effusions. IMPRESSION: 1. No evidence of acute cholecystitis. 2. Bilateral small pleural effusions. BACTERIAL - Source Strep Urine 01/29 [facility] SEROLOGY [facility] *NA* [place] (01/29/17 12:17 AM) BACTERIAL - Strep Negative Negative 01/29 [facility] SEROLOGY pneumoniae [facility] (01/29/17 12:17 AM) [facility] DRUG SCREEN U Opiate Scr Negative Negative 01/29 [facility] *NA* [facility] (01/29/17 12:17 AM) DRUG SCREEN U Cannab Scr Negative Negative 01/29 [facility] *NA* [place] (01/29/17 12:17 AM) DRUG SCREEN U Cocaine Scr Negative Negative 01/29 [facility] *NA* [place] (01/29/17 12:17 AM) DRUG SCREEN U Benzodia Positive Negative 01/29 [facility] Scr [facility] *ABN* [place] (01/29/17 12:17 AM) DRUG SCREEN U Wendy Scr Negative Negative 01/29 [facility] *NA* [place] (01/29/17 12:17 AM) DRUG SCREEN UDS Note See Note 01/29 [facility] (01/29/17 12:17 AM) Center DRUG SCREEN U Phencyc Scr Negative Negative 01/29 [facility] *NA* [place] (01/29/17 12:17 AM) DRUG SCREEN U Amph Scr Negative Negative 01/29 [facility] *NA* Center (01/29/17 12:17 AM) Chest Chest EXAM: CTA CHEST WITH CONTRAST 01/29 - [facility] Pulmonary Pulmonary /2016 - Medical Embolism Embolism CTA This report was dictated by a Nat Instructor/Fellow. I have personally reviewed the images as Center CTA well as the Resident's interpretation and agree with the findings. DATE: 01/28/2017 11:26 PM CDT Read by: Jennifer Valdes MD Resident: Jennifer Valdes MD Dictated Date/time: 01/29/17 05:38 Electronically Signed by: Jack Torres MD 01/29/17 07:38 FINAL REPORT INDICATION: - seizure activity, hypoxic, tachypneic, rule out PE COMPARISON: No prior CT for comparison, chest radiograph 01/28/2017 TECHNIQUE: Volumetric CT acquisition of the chest, during pulmonary arterial phase, after intravenous contrast. Axial, sagittal, coronal, and oblique MIP reconstructions are created at the acquisition workstation. IV Contrast: 60 mL of Visipaque 320 DLP: 520 mGy-cm FINDINGS: Lines and tubes: The endotracheal tube is approximately 3 cm above the primo. A gastric tube courses through the esophagus and into the stomach with its tip not visualized on this study. Lower neck: The right thyroid lobe is missing. A 3 mm hypodense nodule is seen in the thyroid isthmus. Heart, Mediastinum, and Great Vessels: Cardiothoracic ratio measures 11.4/ 22.4. Mild reflux of contrast into the IVC is noted. The RV/LV ratio is less than 0.9. No significant pericardial effusion is id entified. Measurements and appearance of the thoracic aorta are normal. At the same level where the ascending aorta measures 3.1 cm the pulmonary trunk measures 2.2 cm. There is no pulmonary embolus. Lymph Nodes: There is no hilar, mediastinal, axillary or internal mammary lymphadenopathy. Lungs: Patchy groundglass opacities with subtle tree-in-bud nodularity is seen in the posterior aspect of the right upper lobe and dependent aspects of both lower lobes. Mild dependent enhancing atelect asis is seen in both lower lobes. Mild bronchial wall thickening is seen in both lower lobes. A focus of mucus plugging is seen in the right lower lobe. Pleura: Mild biapical pleural thickening/scarring is noted. Small bilateral pleural effusions are present. No pneumothorax is seen. Esophagus and Upper abdomen: The partially visualized gallbladder demonstrates edema of the gallbladder wall with pericholecystic fluid. Bones and soft tissues: A sclerotic focus in the T8 vertebral body likely represents a bone island. No aggressive osseous lesion is seen. Mild kyphosis of the upper thoracic spine is noted. IMPRESSION: 1. No pulmonary embolus. 2. Patchy groundglass opacities with tree-in-bud nodularity in the posterior right upper lobe and dependent regions of both lower lobes with mild associated lower lobe bronchial wall thickening and rig ht lower lobe mucus plugging. This may represent aspiration pneumonia/ pneumonitis or other infectious/inflammatory process. A follow-up CT thorax is recommended in 3 months after appropriate treatment. 3. Partially visualized edematous gallbladder wall with pericholecystic fluid, nonspecific. A right upper quadrant ultrasound is recommended for further evaluation. Brain wo Brain wo EXAM: CT BRAIN WITHOUT CONTRAST 01/29 [facility] contrast CT contrast CT /2016 - [facility] This report was dictated by a Nat Instructor/Fellow. I have personally reviewed the images as Center well as the Resident's interpretation and agree with the findings. DATE: 01/29/2017 at 450 Read by: Aroldo Espino MD Resident: Aroldo Espino MD Dictated Date/time: 01/29/17 08:18 Electronically Signed by: Yehuda Stevens MD 01/29/17 12:05 FINAL REPORT INDICATION: Left-sided weakness, rule out stroke COMPARISON: CT brain dated 01/28/2017 TECHNIQUE: Axial CT images of the brain were obtained. Sagittal and coronal reformats. IV contrast: None DLP: 4155 mGy-cm FINDINGS: No acute intracranial hemorrhage, mass effect or midline shift. No extra- axial fluid collections. Global volume loss with associated compensatory ventricular dilatation. Confluent subcortical/periventri cular white matter hypodensities are noted in both cerebral hemispheres. Basilar cisterns are patent. Intraocular lens replacement is noted bilaterally. Mucous retention cyst in the left maxillary sinus. Other paranasal sinuses and mastoid air cells are clear. No acute osseous findings. Atherosclerosis. IMPRESSION: No adverse interval change. No hemorrhage. Further evaluation with MRI should be considered if there is clinical concern for an acute ischemic event. Brain/Neck Brain/Neck EXAM: CTA BRAIN 01/29 - [facility] Stroke Stroke /2016 - Medical perfusion perfusion CTA This report was dictated by a Nat Instructor/Fellow. I have personally reviewed the images as Center CTA well as the Resident's interpretation and agree with the findings. EXAM: CTA NECK Read by: Aroldo Espino MD Resident: Aroldo Espino MD Dictated Date/time: 01/29/17 08:21 Electronically Signed by: Yehuda Stevens MD 01/29/17 11:59 FINAL REPORT EXAM: CT PERFUSION BRAIN DATE: 04/30/2016 at 451 INDICATION: Rule out stroke, vasculitis COMPARISON: Same day CT brain without contrast, CT brain dated 01/28/2017 TECHNIQUE: - Dynamic CT perfusion images on a limited area of the brain parenchyma are performed during bolus injection of iodinated contrast material. Color maps of relative cerebral blood flow, relative cerebral blood volume, time to peak, and mean transit time are created on an independent workstation and are submitted along with the source image data. -Rapid acquisition spiral CT images of the brain and neck were obtained between the aortic arch and the cranial vertex during intravenous infusion of iodinated contrast for the purposes of CT angiograph y. 3-D CT angiographic images are created using MIP technique at the acquisition workstation. The source images are also presented for interpretation. IV contrast: 100 mL Visipaque 320 DLP: 4155 mGy-cm FINDINGS: NECK CTA: Aortic arch: The great vessels originate from the aortic arch in the standard configuration. Atherosclerotic calcifications at the origin of left subclavian artery. There is however no origin stenosis o f major vessels.. The vertebral artery origins are patent bilaterally. Carotid arteries: The cervical common carotid arteries and cervical internal carotid arteries are patent. There are minimal areas of noncalcified atherosclerotic plaque at the carotid bifurcations. No h emodynamically significant stenosis of the carotid bifurcations or internal carotid arteries is evident, by NASCET criteria. Vertebral arteries: The extracranial vertebral arteries are patent, without signs of flow-limiting dissection or stenosis. The soft tissues of the neck and other incidental structures are unremarkable. BRAIN CTA: Anterior circulation: There is a laterally oriented 5 mm aneurysm in the right cavernous carotid artery on series 6 image 71. Both cavernous carotid arteries are patent with scattered calcifications. Di stal internal carotid artery bifurcates into normal caliber anterior and middle cerebral arteries. No branch occlusion or flow-limiting stenosis. Posterior circulation: Both vertebral arteries, basilar artery and bilateral posterior cerebral arteries are patent. origin of left LATHE HAND is noted. The deep cerebral veins and major venous sinuses are normal. The brain parenchyma and other incidental structures are unremarkable. CT PERFUSION: There is no regional abnormality in cerebral blood flow, cerebral blood volume, or transit time in the imaged areas of the brain to suggest active oligemia or infarction. RAPID SUMMARY: CBF (<30%) volume: 0 mL Perfusion (Tmax>6.0s) volume: mL Mismatch volume: 0 mL Mismatch ratio: None CT soft tissue neck. Endotracheal and enteric tubes are noted. No enlarged cervical lymph nodes. Visualized lung apices demonstrate biapical pleural thickening/scarring. Multilevel degenerative changes of the cervical and upper thoracic spine. No acute osseous findings. Incidental note is made of bilateral palatine cherie. IMPRESSION: 1. 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 No flow -limiting stenosis or branch occlusion in the intracranial vasculature 2. No hemodynamically significant stenosis in the cervical carotid and extracranial vertebral arteries 3. Normal CT perfusion 4. Incidental palatine cherie [All qualitative and quantitative assessments of carotid bifurcation and proximal internal carotid artery stenosis are made at referencing the distal internal carotid artery.] [Cerebral perfusion analysis using computed tomography with contrast administration, including post-processing of parametric maps with determination of cerebral blood flow (CBF), cerebral blood volume (CBV) and mean transit time (MTT).] BACTERIAL - MRSA by PCR Negative 01/[address] [facility] Troponin-T 0.017 0.000 - 01/29 [facility] ENZYMES ng/mL 0.100 [facility] CARDIAC Troponin-I 0.15 ng/mL 0.00 - 01/29 [facility] ENZYMES 0.40 [facility] CARDIAC BNP 372 pg/mL <=100 01/29 [facility] ENZYMES pg/mL /2016 [facility] CHEM PANEL Bili Total 0.5 mg/dL 0.2 - 1.3 01/29 [facility] CHEM PANEL Alk Phos 74 unit/L 39 - 136 01/29 [facility]2016 [facility] CHEM PANEL Albumin Lvl 3.0 g/dL 3.5 - 5.0 01/29 [facility] CHEM PANEL ALT 36 unit/L 0 - 65 01/29 [facility] CHEM PANEL Total Protein 6.0 g/dL 6.4 - 8.4 01/29 [facility] CHEM PANEL AST 32 unit/L 0 - 37 01/29 [facility] CHEM PANEL Globulin 3.0 g/dL 2.7 - 4.2 01/29 [facility] CHEM PANEL A/G Ratio 1.0 0.7 - 1.6 01/29 [facility] CHEM PANEL B/C Ratio 16 6 - 25 01/29 [facility] HEMATOLOGY INR 1.14 0.85 - 01/29 [place] 1.17 [facility] HEMATOLOGY PTT 29.4 s 22.9 - 01/29 [place] 35.8 [facility] HEMATOLOGY PT 14.6 s 12.0 - 01/29 [facility] 14.7 [facility] LIPIDS VLDL 19 01/29 [facility] LIPIDS Trig 96 mg/dL <=149 01/29 [facility] mg/dL [facility] LIPIDS Chol 110 mg/dL <=199 01/29 [facility] mg/dL [facility] LIPIDS HDL 47 mg/dL >=61 mg/dL 01/29 [facility] LIPIDS LDL 44 mg/dL <=99 mg/dL 01/29 [facility] (Calculated) [facility] LIPIDS CHD Risk 2.34 3.90 - 01/29 [facility] 5.80 [facility] MOLECULAR RSV PCR Negative Negative 01/[address] [facility] (01/28/17 9:31 PM) [place] MOLECULAR Influenza A Negative Negative 01/29 [facility] DIAGNOSTIC PCR [facility] (01/28/17 9:31 PM) [place] MOLECULAR Influenza B Negative Negative 01/29 [facility] DIAGNOSTIC PCR Medical (01/28/17 9:31 PM) Center MOLECULAR Source Flocked MACARONI MAKER Swab 01/29 [facility] DIAGNOSTIC Respiratory Medical Panel PCR (01/28/17 9:31 PM) Center SPECIAL Hgb A1C 5.8 % <=5.6 % 01/29 [facility] CHEMISTRY [facility] BODY FLUIDS WBC CSF 0 /mm3 0 - 53 01/28 [facility] BODY FLUIDS RBC CSF 2 /mm3 0 - 03 01/28 [facility] BODY FLUIDS Clarity CSF Clear Clear 01/28 Medical (10/20/17 4:55 PM) [place] BODY FLUIDS Color CSF Colorless Colorless 01/28 [facility] (01/28/17 4:55 PM) [place] BODY FLUIDS Tube Num CSF 4 01/28 [facility] BODY FLUIDS Supernat CSF Colorless Colorless 01/28 [facility] (01/28/17 4:55 PM) [place] Abdomen AP Abdomen AP DX EXAM: XR ABDOMEN 1 VIEW 01/28 [facility] DATE: 01/28/2017 9:23 PM CDT Read by: Víctor Adler Dictated Date/time: 01/29/17 02:55 Electronically Signed by: Víctor Adler 01/29/17 02:56 FINAL REPORT INDICATION: - NG tube placement ADDITIONAL INFORMATION: None. COMPARISON: None. TECHNIQUE: Limited AP view of the abdomen for tube placement assessment. Number of images: 1 FINDINGS: Enteric suction tube tip in the stomach with sidehole at the GE junction. IMPRESSION: Enteric suction tube tip in the stomach with sidehole at the GE junction. Advancement by 5 cm recommended. Chest 1view Chest 1view EXAM: XR CHEST 1 VIEW 01/28 [facility] DATE: 01/28/2017 9:19 PM CDT Read by: Jack Torres MD Dictated Date/time: 01/28/17 21:57 Electronically Signed by: Jack Torres MD 01/28/17 21:59 FINAL REPORT INDICATION: - intubated COMPARISON: Chest radiograph 01/28/2017 TECHNIQUE: AP chest FINDINGS: Lines, tubes and hardware: The endotracheal tube and gastric tube are stable in position. Lungs and pleura: The lungs are hyperinflated. Interval resolution of the left lower lung airspace opacity is noted, which likely represented atelectasis. The costophrenic sulci are sharp. No definite p neumothorax is seen. Pulmonary vascularity is normal. Heart and mediastinum: The heart size is normal for technique. The aorta is mildly tortuous and calcified. Bones: No acute bony abnormality is identified. IMPRESSION: 1. Interval resolution of the left lower lung airspace opacity, which likely represented atelectasis. BODY FLUIDS Glucose CSF 61 mg/dL 45 - 80 01/28 [facility] BODY FLUIDS Protein CSF 47 mg/dL 15 - 45 01/28 [facility] BODY FLUIDS RBC CSF 67 /mm3 0 - 03 01/28 [facility] BODY FLUIDS Clarity CSF Clear Clear 01/28 [facility] (01/28/17 4:24 PM) [place] BODY FLUIDS WBC CSF 1 /mm3 0 - 53 01/28 [facility] BODY FLUIDS Supernat CSF Colorless Colorless 01/28 [facility] (01/28/17 4:24 PM) [place] BODY FLUIDS Color CSF Colorless Colorless 01/28 [facility] (01/28/17 4:24 PM) [place] BODY FLUIDS Tube Num CSF 1 01/28 [facility] IMMUNOLOGY Alb CSF (CPE) 26.4 mg/dL 14.0 - 01/28 [place] 25. [facility] IMMUNOLOGY Alb (CPE) 2700.0 3400.0 - 01/28 [facility] mg/dL 5000. [facility] IMMUNOLOGY IgG (CPE) 759 mg/dL 694 - 1618 01/28 [facility] IMMUNOLOGY IgG Lvl CSF 4.5 mg/dL 2.0 - 4.0 01/28 [facility] IMMUNOLOGY IgG Index 0.6 mg/dL 0.3 - 0.7 01/28 [facility] IMMUNOLOGY Description The gel 01/28 [facility] demonstr [facility] appropriat e resolution of the main protein bands. The gamma region shows continuous distributi on of proteins both in the CSF and in the serum. No oligoclona l bands are detected. IMMUNOLOGY PE Interp CSF CSF 01/28 [facility] [place] resis did not reveal evidence of an oligoclona l process in the CENTR[employer]AL SPINNER. The CSF IgG index is within the reference range indicating that there is no elevation in intracereb ral IgG synthesis. The CSF/serum albumin ratio is elevated. In the absence of a significan t amount of RBCs in the CSF specimen (2/mm3), this is consistent with increased permeabili ty of the blood brain barrier. electronic medical record has been reviewed for relevant history.I have personally reviewed the test results and concur with the resident's interpreta tion.CPT: 50496-NM URINE AND UA Blood Large Negative 01/28 [facility] *ABN* [place] (01/28/17 3:30 PM) URINE AND UA Bili Negative Negative 01/28 [facility] Medical *NA* [place] (01/28/17 3:30 PM) URINE AND UA Ketones Negative Negative 01/[address] [facility] *NA* [place] (01/28/17 3:30 PM) URINE AND UA Nitrite Negative Negative 01/28 [facility] (01/28/17 3:30 PM) [place] URINE AND UA Leuk Est Small Negative 01/[address] [facility] *ABN* Center (01/28/17 3:30 PM) URINE AND UA 0.2 EU/dL 0.1 - 1.0 01/28 [facility] Urobilinogen [facility] URINE AND UA Turbidity Slight Cloudy Clear 01/[address] [facility] (01/28/17 3:30 PM) [place] URINE AND UA Spec Grav 1.025 <=1.030 01/28 [facility] URINE AND UA pH 6.5 5.0 - 8.0 01/28 [facility] [address] [place] [address] URINE AND UA Protein >=300 Negative 01/28 [facility] mg/dL mg/dL [facility] URINE AND UA Glucose Negative Negative 01/[address] [facility] (01/28/17 3:30 PM) [place] URINE AND UA Color Yellow Yellow 01/[address] [facility] *NA* [place] (01/28/17 3:30 PM) URINE AND UA WBC 6-10 /HPF None Seen 01/28 [facility] STOOL /HPF [address] [place] [address] URINE AND UA Sq Epi Occasional Few /LPF 01/28 [facility] STOOL /LPF [facility] URINE AND UA Bacteria Occasional None Seen 01/28 [facility] STOOL /HPF /HPF [facility] URINE AND UA RBC 11-20 /HPF 0 - 2 01/28 [facility] CARDIAC Total CK 40 unit/L 12 - 191 01/28 [facility] ENZYMES [facility] CHEM PANEL AST 21 unit/L 0 - 37 01/[address] CHEM PANEL Total Protein 5.2 g/dL 6.4 - 8.4 01/[address] CHEM PANEL ALT 27 unit/L 0 - 65 01/[address] CHEM PANEL Albumin Lvl 2.5 g/dL 3.5 - 5.0 01/[address] CHEM PANEL Alk Phos 62 unit/L 39 - 136 01/[address] CHEM PANEL Globulin 2.7 g/dL 2.7 - 4.2 01/[address] CHEM PANEL Bili Indirect 0.4 mg/dL 0.0 - 1.0 01/[address] CHEM PANEL A/G Ratio 0.9 0.7 - 1.6 01/[address] CHEM PANEL Bili Direct 0.1 mg/dL 0.0 - 0.3 01/[address] CHEM PANEL Bili Total 0.5 mg/dL 0.2 - 1.3 01/[address] HEMATOLOGY RBC Morph Normal 01/[address] [facility] (01/28/17 3:00 PM) [place] HEMATOLOGY Plt Morph Normal 01/[address] [facility] (01/28/17 3:00 PM) [place] Brain wo Brain wo CT HEAD WITHOUT CONTRAST 01/28 [facility] contrast CT contrast CT [facility] DATE: Read by: Jluis Johnson MD Dictated Date/time: 01/28/17 15:43 Electronically Signed by: Jluis Johnson MD 01/28/17 15:45 FINAL REPORT COMPARISON: None. HISTORY: - AMS. TECHNIQUE: Contiguous axial images of the brain were obtained without intravenous contrast administration. Sagittal and coronal reformats were also provided. DLP: 753.9 mGy-cm. FINDINGS: There are no acute hemorrhages or acute infarcts. The lopes-white interfaces are well defined. Low density is noted within the periventricular white matter consistent with chronic small vessel ischemic disease. There is prominence of the cortical sulci, fissures, cisterns and ventricles consistent with cortical atrophy. There are no acute bony abnormalities. The calvarium is intact. Atherosclerotic calcification is noted within the payton of the bilateral vertebral and cavernous internal carotid arteries. Large mucous r etention cyst is noted filling the left maxillary sinus. IMPRESSION: 1. No acute intracranial abnormality. 2. Age related volume loss. 3. White matter hypodensity consistent with chronic small vessel ischemic disease. 4. Arterial atherosclerosis. 5. Large left maxillary sinus mucus retention cyst. Chest 1view Chest 1view EXAM: XR CHEST 1 VIEW 01/28 - [facility] DX DX - Medical This report was dictated by a Nat Instructor/Fellow. I have personally reviewed the images as Center well as the Resident's interpretation and agree with the findings. DATE: 01/28/2017 at 1509 hours Read by: Tello Anaya MD Resident: Tello Anaya MD Dictated Date/time: 01/28/17 15:12 Electronically Signed by: Calli Brandt MD 01/28/17 15:19 FINAL REPORT INDICATION: Altered mental status COMPARISON: None. TECHNIQUE: AP chest FINDINGS: Lines, tubes and hardware: The endotracheal tube tip projects 4.7 cm above the primo. A gastric suction tube passes below the diaphragm, with the side- port overlying the gastric esophageal junction. Lungs and pleura: The lungs are hyperinflated with left basilar airspace opacity. Pulmonary vascularity is normal. Heart and mediastinum: The heart size is normal for technique. Vascular calcifications are present at the aorta. Bones: No acute bony abnormality is identified. IMPRESSION: 1. Endotracheal tube tip 4.7 cm above the primo. Gastric suction tube side -port in the region of the gastroesophageal junction. Consider advancement. 2. Left retrocardiac airspace opacity may represent atelectasis or pneumonia/aspiration Vital Signs Vital Sign Value Date Comments Source Temperature Oral (F) 97.6 F 02/08/2017 [facility] Heart Rate 76 02/08/2017 [facility] Respitory Rate 16 02/08/2017 [facility] Systolic (mm Hg) 147 02/08/2017 [facility] Diastolic (mm Hg) 74 02/08/2017 [facility] Systolic (mm Hg) 188 02/08/2017 [facility] Diastolic (mm Hg) 88 02/08/2017 [facility] Heart Rate 66 02/08/2017 [facility] Respitory Rate 18 02/08/2017 [facility] Temperature Oral (F) 97.7 F 02/08/2017 [facility] Systolic (mm Hg) 148 02/08/2017 [facility] Diastolic (mm Hg) 74 02/08/2017 [facility] Temperature Oral (F) 97.9 F 02/08/2017 [facility] Respitory Rate 18 02/08/2017 [facility] Heart Rate 62 02/08/2017 [facility] Height 162.56 cm 01/30/2017 [facility] Height 162.56 cm 01/30/2017 [facility] Height 162.56 cm 01/30/2017 [facility] Weight 52.1 01/29/2017 [facility] BMI Calculated 19.72 01/29/2017 [facility] Weight 60 01/28/2017 [facility] Weight 60 01/28/2017 [facility] Encounters Location Location Encounter Encounter Reason Attending ADM DC Status Source Details Type Number For Provider Date Date Visit [facility] [id number] Richard 01/28 02/08 [facility] Kendra /2016 [facility] [id number] Makenna 05/12 05/13 [facility] Procedures Procedure Code Date Perfomer Comments Source Dental appliance [id number] Root canal & [facility] component<sup>1< dental bridge Medical /sup> Center
--- OUTSIDE RECORDS SUMMARY | 2018-08-19 10:05 | XMS REPORT ---
:1940 Author Organization [employer] Care Team Providers Name Role Phone Susan Harris Provider Role Unavailable Allergies No Known Allergies Problems Problem Type Condition Code Onset Dates Condition Status Problem Anxiety F41.9 Active Problem Other osteoporosis M81.8 Active Problem At risk for falls Z91.81 Active Problem Prediabetes R73.03 Active Problem Osteoporosis, unspecified M81.0 Active osteoporosis type, unspecified pathological fracture presence Problem Diarrhea, unspecified type R19.7 Active Problem Hyperlipidemia, unspecified E78.5 Active hyperlipidemia type Problem Chronic urinary tract infection N39.0 Active Problem Right sided weakness R53.1 Active Problem Hypertension, unspecified type I10 Active Problem Multiple sclerosis G35 Active Problem Hyperlipemia E78.5 Active Problem Hyperglycemia R73.9 Active Problem Paralytic syndrome, 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 Active Problem Benign essential HTN I10 Active Medications No Known Medications Results No Known Results Summary Purpose [employer] Player Submission
--- OUTSIDE RECORDS SUMMARY | 2018-08-19 10:05 | XMS REPORT ---
:1940 Author Organization [employer] Care Team Providers Name Role Phone Meettracee Susan Provider Role Unavailable Allergies, Adverse Reactions, Alerts Substance Reaction Event Type PCN Info Not Available Drug Allergy Problems Problem Type Condition Code Onset Dates Condition Status Problem Anxiety F41.9 Active Problem Other osteoporosis M81.8 Active Problem At risk for falls Z91.81 Active Problem Prediabetes R73.03 Active Assessment Multiple sclerosis G35 Active Problem Osteoporosis, unspecified M81.0 Active osteoporosis type, unspecified pathological fracture presence Problem Diarrhea, unspecified type R19.7 Active Problem Hyperlipidemia, unspecified E78.5 Active hyperlipidemia type Problem Chronic urinary tract infection N39.0 Active Problem Right sided weakness R53.1 Active Problem Hypertension, unspecified type I10 Active Assessment Hyperlipidemia, unspecified E78.5 Active hyperlipidemia type Assessment Prediabetes R73.03 Active Assessment Right sided weakness R53.1 Active Assessment Osteoporosis, unspecified M81.0 Active osteoporosis type, unspecified pathological fracture presence Problem Multiple sclerosis G35 Active Problem Hyperlipemia E78.5 Active Assessment Hypertension, unspecified type I10 Active Problem Hyperglycemia R73.9 Active Problem Paralytic syndrome, 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 Active Problem Benign essential HTN I10 Active Medications Medication Code Code Instructions Start End Status Dosage System Date Date Citracal Calcium [facility] 30884620010 250-115-250 Active not defined Gummies MG-MG-UNIT Orally Atorvastatin ND 80937476688 40 MG Orally Active 1 tablet Calcium Once a day Docusate Sodium ND 02077256544 100 MG Orally Active 1 capsule as Once a day needed Losartan ND 96655275422 100 mg Orally Active 1 tablet Potassium Once a day Vitamin B-12 ND 72133060630 1000 MCG Active 1 tablet Orally Once a day Oxybutynin [facility] 61945096085 5 MG Orally Active 3 tablets Chloride Once a day Oxybutynin [facility] 00743548164 15 MG Orally September 02Feb Active 1 tablet Chloride ER Once a day 2017 Citrac[address] +D3 [facility] 90228948637 250-234-500 Active not defined MG-MG-UNIT Orally Triamcinolone & NDC 0 0.1 % Active 1 application Emollient Externally Twice a day HydrALAZINE HCl [facility] 62353315278 50 MG Orally Active 1 tablet with Three times a food day NIFEdipine ER [facility] 51229273271 60 MG Orally Active 1 tablet on Once a day an empty stomach Risedronate [facility] 61454472062 150 MG Orally Nov Active 1 tablet Sodium monthly [address] [facility] 73519964349 400 MG Orally Active 1 tablet Once a day Nitrofurantoin [facility] 01737838715 50 MG Orally September 02Nov Active 1 capsule Macrocrystal Once a day 2017, with food or [address] [facility] 95293301065 100 mg Orally Active 1 tablet with Tartrate Twice a day food Results No Known Results Summary Purpose [employer] Submission
--- OUTSIDE RECORDS SUMMARY | 2018-08-19 10:05 | XMS REPORT ---
[...] Medications Results No Known Results Summary Purpose [facility] Submission
--- OUTSIDE RECORDS SUMMARY | 2018-08-19 10:05 | XMS REPORT ---
[...] Medications Results No Known Results Summary Purpose [facility] Submission
--- OUTSIDE RECORDS SUMMARY | 2018-08-19 10:05 | XMS REPORT ---
:1940 Author Organization [employer] Care Team Providers Name Role Phone Steven Susan Provider Role Unavailable Allergies No Known Allergies Problems Problem Type Condition Code Onset Dates Condition Status Problem Other osteoporosis M81.8 Active Problem Right sided weakness R53.1 Active Problem Hypertension, unspecified type I10 Active Problem Loss of appetite R63.0 Active Problem Recurrent urinary tract infection N39.0 Active Problem Weight loss R63.4 Active Problem Prediabetes R73.03 Active Problem Osteoporosis, unspecified M81.0 Active osteoporosis type, unspecified pathological fracture presence Problem Hyperlipidemia, unspecified E78.5 Active hyperlipidemia type Problem Diarrhea, unspecified type R19.7 Active Problem Paralytic syndrome, 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 Active Problem Multiple sclerosis G35 Active Problem Hyperglycemia R73.9 Active Problem Benign essential HTN I10 Active Problem Hyperlipemia E78.5 Active Problem Anxiety F41.9 Active Problem Chronic urinary tract infection N39.0 Active Problem At risk for falls Z91.81 Active Medications No Known Medications Results No Known Results Summary Purpose [employer] Submission
--- OUTSIDE RECORDS SUMMARY | 2018-08-19 10:05 | XMS REPORT ---
:1940 Author Organization [employer] Care Team Providers Name Role Phone Susan Harris Provider Role Unavailable Allergies, Adverse Reactions, Alerts Substance Reaction Event Type PCN Info Not Available Drug Allergy Problems Problem Type Condition Code Onset Dates Condition Status Assessment Multiple sclerosis G35 Active Assessment Osteoporosis, unspecified M81.0 Active osteoporosis type, unspecified pathological fracture presence Problem Anxiety F41.9 Active Assessment Recurrent urinary tract infection N39.0 Active Problem At risk for falls Z91.81 Active Assessment Hyperlipidemia, unspecified E78.5 Active hyperlipidemia type Problem Other osteoporosis M81.8 Active Problem Right sided weakness R53.1 Active Problem Hypertension, unspecified type I10 Active Problem Loss of appetite R63.0 Active Problem Recurrent urinary tract infection N39.0 Active Assessment Loss of appetite R63.0 Active Assessment Weight loss R63.4 Active Problem Weight loss R63.4 Active Assessment Prediabetes R73.03 Active Problem Prediabetes R73.03 Active Problem Osteoporosis, unspecified M81.0 Active osteoporosis type, unspecified pathological fracture presence Problem Hyperlipidemia, unspecified E78.5 Active hyperlipidemia type Problem Diarrhea, unspecified type R19.7 Active Problem Paralytic syndrome, 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 Active Problem Multiple sclerosis G35 Active Assessment Hypertension, unspecified type I10 Active Problem Hyperglycemia R73.9 Active Problem Benign essential HTN I10 Active Problem Hyperlipemia E78.5 Active Problem Chronic urinary tract infection N39.0 Active Medications Medication Code Code Instructions Start End Status Dosage System Date Date Metoprolol ND 53781681717 100 mg Orally Active 1 tablet Tartrate Twice a day with food D-Mannose [facility] [address] Orally Once Active 1000 mg>>1 daily tablet Aptiom ND 35448640907 400 MG Orally Active 1 tablet Once a day Losartan ND 95142778083 100 mg Orally Active 1 tablet Potassium Once a day NIFEdipine ER ND 00474870680 60 MG Orally Inactive 1 tablet Once a day on an empty stomach HydrALAZINE HCl ND 60669944553 50 MG Orally Active 1 tablet Three times a with food day Vitamin B-12 [facility] 00790436580 1000 MCG Orally Active 1 tablet Once a day Docusate Sodium [facility] 44385560395 100 MG Orally Active 1 capsule Once a day as needed Oxybutynin [facility] 69597178179 15 MG Orally September 02October Active 1 tablet Chloride ER Once a day 2017 Citracal [facility] 56526335585 250-115-250 Active not Calcium Gummies MG-MG-UNIT defined Orally Citracal +D3 [facility] 89641348521 250-107-500 Active not MG-MG-UNIT defined Orally Risedronate [facility] 24217341869 150 MG Orally October Active 1 tablet Sodium monthly 2018 Topiramate [facility] 50597756650 50 MG Orally Active 1 tablet Twice daily Atorvastatin [facility] 27075520322 40 MG Orally Active 1 tablet Calcium Once a day Results No Known Results Summary Purpose [employer] Submission
--- OUTSIDE RECORDS SUMMARY | 2018-08-19 10:05 | XMS REPORT ---
[...] Medications Results No Known Results Summary Purpose [facility] Submission
--- OUTSIDE RECORDS SUMMARY | 2018-08-19 10:06 | XMS REPORT ---
:1940 Author Organization [employer] Care Team Providers Name Role Phone Steven Susan Provider Role Unavailable Allergies No Known Allergies Problems Problem Type Condition Code Onset Dates Condition Status Problem Hypertension, unspecified type I10 Active Problem Osteoporosis, unspecified M81.0 Active osteoporosis type, unspecified pathological fracture presence Problem Right sided weakness R53.1 Active Problem Weight loss R63.4 Active Problem Loss of appetite R63.0 Active Problem Generalized weakness R53.1 Active Problem Diarrhea, unspecified type R19.7 Active Problem Prediabetes R73.03 Active Problem Recurrent urinary tract infection N39.0 Active Problem Hyperlipidemia, unspecified E78.5 Active hyperlipidemia type Problem Benign essential HTN I10 Active Problem Anxiety F41.9 Active Problem Hyperglycemia R73.9 Active Problem Chronic urinary tract infection N39.0 Active Problem Paralytic syndrome, 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 Active Problem Multiple sclerosis G35 Active Problem At risk for falls Z91.81 Active Problem Hyperlipemia E78.5 Active Problem Other osteoporosis M81.8 Active Medications No Known Medications Results No Known Results Summary Purpose [employer] Submission
--- OUTSIDE RECORDS SUMMARY | 2018-08-19 10:06 | XMS REPORT ---
:1940 Author Organization [employer] Care Team Providers Name Role Janelle Jeter Susan Provider Role Unavailable Allergies, Adverse Reactions, Alerts Substance Reaction Event Type PCN Info Not Available Drug Allergy Problems Problem Type Condition Code Onset Dates Condition Status Problem Right sided weakness R53.1 Active Problem Prediabetes R73.03 Active Problem Osteoporosis, unspecified M81.0 Active osteoporosis type, unspecified pathological fracture presence Problem Generalized weakness R53.1 Active Problem Weight loss R63.4 Active Assessment Abnormal urine R82.90 Active Problem Essential hypertension I10 Active Problem Hyperlipidemia, unspecified E78.5 Active hyperlipidemia type Problem Diarrhea, unspecified type R19.7 Active Problem Loss of appetite R63.0 Active Problem Recurrent urinary tract infection N39.0 Active Problem Anxiety F41.9 Active Problem Paralytic syndrome, 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 Active Problem Hyperglycemia R73.9 Active Problem Benign essential HTN I10 Active Problem Chronic urinary tract infection N39.0 Active Problem At risk for falls Z91.81 Active Problem Multiple sclerosis G35 Active Problem Other osteoporosis M81.8 Active Problem Hyperlipemia E78.5 Active Problem Hypertension, unspecified type I10 Active Medications Medication Code Code Instructions Start End Status Dosage System Date Date Metoprolol [facility] 19045787690 100 mg Orally Active 1 tablet Tartrate Twice a day with food Nitrofurantoin [facility] 62613324305 100 mg Orally July Active 1 capsule Macrocrystal BID 2018 Citracal Calcium [facility] 38704401484 250-115-250 Active not Gummies MG-MG-UNIT defined Orally Aptiom ND 21154627393 400 MG Orally Active 1 tablet Once a day Losartan ND 09788922514 100 mg Orally Active 1 tablet [place] [address] Orally Once Active 1000 mg>>[place] [address] Active not defined Risedronate ND 07059512329 150 MG Orally Apr 10, Active 1 tablet Sodium Once monthly 2018 Citracal +D3 [facility] 20682718704 250-107-500 Active not MG-MG-UNIT defined Orally Docusate Sodium [facility] 00847204929 100 MG Orally Active 1 capsule Once a day as needed Atorvastatin [facility] 61215823644 40 MG Orally Active 1 tablet Calcium Once a day HydrALAZINE HCl [facility] 65166966014 50 MG Orally Active 1 tablet Three times a with food day Topiramate [facility] 97512063180 50 MG Orally Active 1 tablet Twice daily Vitamin B-12 [facility] 06102668473 1000 MCG Orally Active 1 tablet Once a day Oxybutynin [facility] 39244298799 15 MG Orally September 02, Apr 10, Active 1 tablet Chloride ER Once a day 2017 2018 Results Name Result Date Reference Range Unit Abnormality Flag URINALYSIS AUTO W/O SCOPE (60552) ----ANANYA 3+ [id number] ----NIT Negative [id number] ----PROTEIN Negative 20180714 ----pH 6.0 20180714 ----GLUCOSE Negative 20180714 ----KETONES Negative [id number] ----SPECIFIC GRAVITY 1.015 20180714 ----BLO Negative [id number] Summary Purpose [employer]Works Submission
--- OUTSIDE RECORDS SUMMARY | 2018-08-19 10:06 | XMS REPORT ---
:1940 Author Organization [employer] Care Team Providers Name Role Phone Steve Harrisen Provider Role Unavailable Allergies No Known Allergies Problems Problem Type Condition Code Onset Dates Condition Status Problem Right sided weakness R53.1 Active Problem Prediabetes R73.03 Active Problem Osteoporosis, unspecified M81.0 Active osteoporosis type, unspecified pathological fracture presence Problem Generalized weakness R53.1 Active Problem Weight loss R63.4 Active Problem Essential hypertension I10 Active Problem [...] Problem Hypertension, unspecified type I10 Active Medications No Known Medications Results No Known Results Summary Purpose [employer] Submission
--- OUTSIDE RECORDS SUMMARY | 2018-08-19 10:06 | XMS REPORT ---
:1940 Author Organization [employer] Care Team Providers Name Role Phone Steven Susan Provider Role Unavailable Allergies, Adverse Reactions, Alerts Substance Reaction Event Type PCN Info Not Available Drug Allergy Problems Problem Type Condition Code Onset Dates Condition Status Assessment Multiple sclerosis G35 Active Problem Other osteoporosis M81.8 Active Assessment Osteoporosis, unspecified M81.0 Active osteoporosis type, unspecified pathological fracture presence Problem Hypertension, unspecified type I10 Active Assessment Hyperlipemia E78.5 Active Problem Right sided weakness R53.1 Active Problem Prediabetes R73.03 Active Problem Osteoporosis, unspecified M81.0 Active osteoporosis type, unspecified pathological fracture presence Problem Generalized weakness R53.1 Active Problem Weight loss R63.4 Active Assessment Essential hypertension I10 Active Problem Essential hypertension I10 Active Assessment Prediabetes R73.03 Active Problem Hyperlipidemia, unspecified E78.5 Active hyperlipidemia [...] sclerosis G35 Active Problem Hyperlipemia E78.5 Active Medications Medication Code Code Instructions Start End Status Dosage System Date Date Aptiom [facility] 60204694792 400 MG Orally Active 1 tablet Once a day Losartan ND 18854854036 100 mg Orally Active 1 tablet Potassium Once a day Docusate Sodium ND 01458898121 100 MG Orally Active 1 capsule Once a day as needed Metoprolol ND 21964418810 100 mg Orally Active 1 tablet Tartrate Twice a day with food D-Mannose [facility] [address] Orally Once Active 1000 mg>>1 daily tablet Oxybutynin ND 04987472227 15 MG Orally September 02, Apr 10, Active 1 tablet Chloride ER Once a day 2017 2018 Citracal Calcium [facility] 09722463385 250-115-250 Active not Gummies MG-MG-UNIT defined Orally Risedronate [facility] 19763696721 150 MG Orally Apr 10, Active 1 tablet Sodium Once monthly 2018 Citracal +D3 [facility] 02805959370 250-107-500 Active not MG-MG-UNIT defined Orally HydrALAZINE HCl [facility] 41716509388 50 MG Orally Active 1 tablet Three times a with food day Topiramate [facility] 20634303114 50 MG Orally Active 1 tablet Twice daily Vitamin B-12 [facility] 19187854605 1000 MCG Orally Active 1 tablet Once a day Atorvastatin [facility] 04021300186 40 MG Orally Active 1 tablet Calcium Once a day Results No Known Results Summary Purpose [employer] Submission
--- OUTSIDE RECORDS SUMMARY | 2018-08-19 10:06 | XMS REPORT ---
:1940 Author Organization [employer] Care Team Providers Name Role Phone Corona Susan Provider Role Unavailable Allergies No Known [...]
--- OUTSIDE RECORDS SUMMARY | 2018-08-19 10:06 | XMS REPORT ---
:1940 Author Organization [employer] Care Team Providers Name Role Phone Susan Harris Provider Role Unavailable Allergies, Adverse Reactions, Alerts Substance Reaction Event Type PCN Info Not Available Drug Allergy Problems Problem Type Condition Code Onset Dates Condition Status Assessment Multiple sclerosis G35 Active Assessment At risk for falls Z91.81 Active Assessment Generalized weakness R53.1 Active Assessment Osteoporosis, unspecified M81.0 Active osteoporosis type, unspecified pathological fracture presence Assessment Hyperlipidemia, unspecified E78.5 Active hyperlipidemia type Problem At risk for falls Z91.81 Active Assessment Prediabetes R73.03 Active Problem Other osteoporosis M81.8 Active Assessment Hypertension, unspecified type I10 Active Problem Hypertension, unspecified type I10 Active Problem Osteoporosis, unspecified M81.0 Active osteoporosis type, unspecified pathological fracture presence Problem Right sided weakness R53.1 Active Problem Weight loss R63.4 Active Problem Loss of appetite R63.0 Active Assessment Urinary frequency R35.0 Active Assessment Abnormal urine odor R82.90 Active Problem Generalized weakness R53.1 Active Assessment Acute UTI N39.0 Active Problem Diarrhea, unspecified type R19.7 Active [...] Start End Status Dosage System Date Date Macrobid [facility] 68549732809 100 mg Orally Apr 13, Apr 20, Active 1 capsule every 12 hrs 2018 2018 with food Docusate Sodium ND 20783613671 100 MG Orally Active 1 capsule Once a day as needed Losartan ND 88398413610 100 mg Orally Active 1 tablet Potassium Once a day Citracal +D3 [facility] 62611167274 250-107-500 Active not MG-MG-UNIT defined Orally Oxybutynin [facility] 39139817857 15 MG Orally September 02October Active 1 tablet Chloride ER Once a day 2017 Citracal Calcium [facility] 26140997805 250-115-250 Active not Gummies MG-MG-UNIT defined Orally Aptiom [facility] 46611455108 400 MG Orally Active 1 tablet Once a day HydrALAZINE HCl [facility] 60123576501 50 MG Orally Active 1 tablet Three times a with food day Metoprolol [facility] 81372218841 100 mg Orally Active 1 tablet Tartrate Twice a day with food Risedronate [facility] 05929364685 150 MG Orally October Active 1 tablet Sodium monthly 2018 D-Mannose [facility] [address] Orally Once Active 1000 mg>>1 daily tablet Topiramate [facility] 97239872811 50 MG Orally Active 1 tablet Twice daily Vitamin B-12 [facility] 58645767328 1000 MCG Orally Active 1 tablet Once a day Atorvastatin [facility] 90508825133 40 MG Orally Active 1 tablet Calcium Once a day Results No Known Results Summary Purpose [employer] Submission
--- OUTSIDE RECORDS SUMMARY | 2018-08-19 10:07 | XMS REPORT ---
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 Active Problem Generalized weakness R53.1 Active Problem Hypokalemia E87.6 Active Problem Recurrent urinary tract infection N39.0 Active Problem Hyperlipidemia, unspecified E78.5 Active hyperlipidemia type Problem Weight loss R63.4 Active Problem Loss of appetite R63.0 Active Problem Anxiety F41.9 Active Problem Multiple sclerosis G35 Active Problem Hyperglycemia R73.9 Active Problem Benign essential HTN I10 Active Problem At risk for falls Z91.81 Active Problem Other osteoporosis M81.8 Active Problem Hyperlipemia E78.5 Active Problem Hypertension, unspecified type I10 Active Problem Chronic urinary tract infection N39.0 Active Problem Right sided weakness R53.1 Active Medications No Known Medications Results No Known Results Summary Purpose [employer] Submission
--- OUTSIDE RECORDS SUMMARY | 2018-08-19 10:07 | XMS REPORT ---
[...] G83.9 Active Problem Generalized weakness R53.1 Active Assessment Hypokalemia E87.6 Active Problem Hypokalemia E87.6 Active Problem Recurrent [...] Problem Right sided weakness R53.1 Active Medications Medication Code Code Instructions Start End Date Status Dosage System Date Potassium [facility] 92080649749 20 MEQ Orally July 21July Active 1 tablet Chloride ER Once a day for 2018 with food low potassium Results No Known Results Summary Purpose [employer]Works Submission
--- OUTSIDE RECORDS SUMMARY | 2018-08-19 10:07 | XMS REPORT ---
[...] Start End Status Dosage System Date Date Potassium [facility] 02862538950 20 MEQ Orally August 11August 18, Active 1 capsule Chloride Once a day 2018 2018 Results No Known Results Summary Purpose [employer]Works Submission
[2018-08-19 11:05] LABS: Urine Blood NEGATIVE (NEG); Urine Glucose NEGATIVE (NEG); Urine Protein TRACE (NEG); Urine Specific Gravity 1.015 (1.005-1.030); Urine pH 7.5 (5.0-7.0)
[2018-08-19 11:16] LABS: Absolute Lymphocytes (CBC) 1.3 K/uL (0.7-4.9); Absolute Monocytes 0.5 K/uL (0.1-1.3); Absolute Neutrophil 3.6 K/uL (1.8-8.0); Basophils % 0.9 % (0-1.3); Eosinophils % 0.9 % (0-4.4); Hematocrit 44.7 % (36.0-45.0); Lymphocytes % 23.5 % (15.3-44.8); MPV 8.7 fL (7.6-11.3); Monocytes % 9.7 % (3.3-12.3); RBC Red Blood Cell Count 4.87 M/uL (3.86-4.86)
[2018-08-19 11:16] LABS: Urine Amorphous Sediment 1+ /HPF (NONE SEEN); Urine Bacteria >50 /HPF (<20); Urine Culture Reflex Order NOT NEEDED; Urine RBC <5 /HPF (NONE SEEN)
[2018-08-19 11:20] LABS: Potassium 3.6 mmol/L (3.5-5.1)
[2018-08-19] MEDS ORDERED: NITROFURAN MACRO 100 MG CAP PO ONE (11:26)
--- NOTE | 2018-08-19 11:49 | EDPHYS ---
Physician Documentation [facility] Name: Amarilis Manjarrez Age: 77 yrs Sex: Female : 1940 Arrival Date: 08/19/2018 Time: 10:00 Bed 16 Private MD: Susan Harris ED Physician Jc Arizmendi HPI: 08/19 11:31 This 77 yrs old Female presents to ER via Wheelchair with complaints of rn Urinary Problem. 11:31 The patient presents with urinary symptoms, urgency. Onset: The symptoms/episode rn began/occurred at an unknown time. Modifying factors: The symptoms are alleviated by nothing, the symptoms are aggravated by nothing. Severity of symptoms: At their worst the symptoms were mild, in the emergency department the symptoms are unchanged. The patient has experienced similar episodes in the past. The patient has not recently seen a physician. Reports increased urinary frequency and foul smell for several days (caregiver), no fever, reports a little confusion but has dementia. No trauma or head injury. Otherwise acting normal and no focal neurological complaints. No vomiting/diarrhea/cough. Reports picky eater. . Historical: - Allergies: 10:16 PENICILLINS; iw - PMHx: 10:16 Hypertension; hyperthyroidism; Multiple Sclerosis; iw - PSHx: 10:16 Thyroidectomy; ; iw - Immunization history:: Adult Immunizations up to date. - Social history:: Smoking status: Patient/guardian denies using tobacco. - Ebola Screening: : Patient negative for fever greater than or equal to 101.5 degrees Fahrenheit, and additional compatible Ebola Virus Disease symptoms Patient denies exposure to infectious person Patient denies travel to an Ebola-affected area in the 21 days before illness onset No symptoms or risks identified at this time. - Family history:: not pertinent. - Hospitalizations: : No recent hospitalization is reported. ROS: 11:31 Constitutional: Negative for fever, chills, and weight loss, Eyes: Negative for injury, rn pain, redness, and discharge, Neck: Negative for injury, pain, and swelling, Cardiovascular: Negative for chest pain, palpitations, and edema, Respiratory: Negative for shortness of breath, cough, wheezing, and pleuritic chest pain, Abdomen/GI: Negative for abdominal pain, nausea, vomiting, diarrhea, and constipation, : + foul odor and dysuria MS/Extremity: Negative for injury and deformity, Skin: Negative for injury, rash, and discoloration, Neuro: Negative for headache, weakness, numbness, tingling, and seizure. Exam: 11:31 Constitutional: This is a well developed, well nourished patient who is awake, alert, rn and in no acute distress. Head/Face: Normocephalic, atraumatic. Eyes: Pupils equal round and reactive to light, extra-ocular motions intact. Lids and lashes normal. Conjunctiva and sclera are non-icteric and not injected. Cornea within normal limits. Periorbital areas with no swelling, redness, or edema. ENT: MMM Neck: Trachea midline, no thyromegaly or masses palpated, and no cervical lymphadenopathy. Supple, full range of motion without nuchal rigidity, or vertebral point tenderness. No Meningismus. Cardiovascular: Regular rate. No pulse deficits. Respiratory: Lungs have equal breath sounds bilaterally, clear to auscultation. No increased work of breathing, no retractions or nasal flaring. Abdomen/GI: soft, non-tender MS/ Extremity: Pulses equal, no cyanosis. Neurovascular intact. Full, normal range of motion. Equal circumference. Neuro: Awake and alert, GCS 15, oriented to person, not place or time (caregiver states baseline). Cranial nerves II-XII grossly intact. Motor strength 5/5 in all extremities. Sensory grossly intact. Cerebellar exam normal. Vital Signs: 10:12 BP 142 / 71; Pulse 64; Resp 16; Temp 97.5(TE); Pulse Ox 99% on R/A; Weight 45.36 kg; iw Height 5 ft. 4 in. (162.56 cm); Pain 0/10; 11:05 BP 139 / 78; Pulse 58; Resp 17; Pulse Ox 99% on R/A; tw2 12:05 BP 141 / 68; Pulse 56; Resp 17; Pulse Ox 100% on R/A; tw2 12:38 BP 155 / 78; Pulse 67; Resp 17; Pulse Ox 99% on R/A; tw2 10:12 Body Mass Index 17.16 (45.36 kg, 162.56 cm) iw MDM: 10:02 Patient medically screened. rn 11:47 Differential diagnosis: urinary tract infection. Data reviewed: vital signs, nurses rn notes, lab test result(s), and as a result, I will discharge patient. Counseling: I had a detailed discussion with the patient and/or guardian regarding: the historical points, exam findings, and any diagnostic results supporting the discharge/admit diagnosis, lab results, the need for outpatient follow up, to return to the emergency department if symptoms worsen or persist or if there are any questions or concerns that arise at home. Response to treatment: the patient's symptoms have mildly improved after treatment, and as a result, I will discharge patient. Special discussion: I discussed with the patient/guardian in detail that at this point there is no indication for admission to the hospital. It is understood, however, that if the symptoms persist or worsen the patient needs to return immediately for re-evaluation. ED course: Pt pleasant, non-toxic, + UTI but normal CBC and procalcitonin, will dc home with abx for UTI and return precautions.. 08/19 10:10 Order name: CBC with Diff 08/19 10:10 Order name: Basic Metabolic Panel 08/19 10:10 Order name: Urine Culture 08/19 10:10 Order name: Urine Microscopic Only; Complete Time: 11:30 08/19 10:10 Order name: Procalcitonin; Complete Time: 11:47 08/19 10:10 Order name: Blood Culture Adult (2) 08/19 10:10 Order name: IV Start; Complete Time: 11:04 08/19 10:10 Order name: CBC with Automated Diff; Complete Time: 11:30 [facility] 08/19 10:10 Order name: Basic Metabolic Panel; Complete Time: 11:30 [facility] 08/19 10:10 Order name: Urine Culture [facility] 08/19 11:03 Order name: Urine Dipstick--Ancillary (enter results); Complete Time: 11:09 eb 08/19 11:03 Order name: Diet Regular; Complete Time: 11:04 tw2 08/19 10:10 Order name: Urine Dipstick-Ancillary (obtain specimen); Complete Time: 11:03 08/19 10:34 Order name: Straight Cath - Urine; Complete Time: 10:59 tw2 Administered Medications: 11:45 Drug: NS 0.9% 500 ml Route: IV; Rate: bolus; Site: left antecubital; tw2 12:37 Follow up: Response: No adverse reaction; IV Status: Completed infusion; IV Intake: tw2 500ml 12:05 Drug: Macrobid 100 mg Route: PO; tw2 12:37 Follow up: Response: No adverse reaction tw2 Disposition: 08/19/18 11:48 Discharged to Home. Impression: Dehydration, Urinary tract infection, site not specified. - Condition is Stable. - Discharge Instructions: Dehydration, Adult, Urinary Tract Infection, Adult. - Prescriptions for Macrobid 100 mg Oral Capsule - take 1 capsule by ORAL route every 12 hours for 10 days; 20 capsule. - Medication Reconciliation Form, Thank You Letter, Antibiotic Education, Prescription Opioid Use form. - Follow up: Private Physician; When: As needed; Reason: Recheck today's complaints, Re-evaluation by your physician. - Problem is new. - Symptoms have improved. Signatures: Dispatcher [employer] Linette Meek RN RN Jc Arizmendi MD MD rn Wise, Tara, RN RN tw2 Corrections: (The following items were deleted from the chart) 12:39 11:48 08/19/2018 11:48 Discharged to Home. Impression: Dehydration; Urinary tract tw2 infection, site not specified. Condition is Stable. Forms are Medication Reconciliation Form, Thank You Letter, Antibiotic Education, Prescription Opioid Use. Follow up: Private Physician; When: As needed; Reason: Recheck today's complaints, Re-evaluation by your physician. Problem is new. Symptoms have improved. rn
--- NOTE | 2018-08-19 11:49 | ER ---
Nurse's Notes [facility] Name: Amarilis Manjarrez Age: 77 yrs Sex: Female : 1940 Arrival Date: 08/19/2018 Time: 10:00 Bed 16 Private MD: Susan Harris Diagnosis: Dehydration;Urinary tract infection, site not specified Presentation: 08/19 10:12 Presenting complaint: u.s. revenue officer states pt has been hallucinating, has been seeing her iw sister that isn't there, thinks she may have UTI, has had similar episode in past, was recent;y on abx for UTI in July, denies fever, denies pain with urination, u.s. revenue officer says urine has foul odor and some discoloration. Transition of care: patient was not received from another setting of care. Onset of symptoms was August 18, 2018. Risk Assessment: Do you want to hurt yourself or someone else? Patient reports no desire to harm self or others. Initial Sepsis Screen: Does the patient meet any 2 criteria? No. Patient's initial sepsis screen is negative. Does the patient have a suspected source of infection?. Care prior to arrival: None. 10:12 Method Of Arrival: Wheelchair iw 10:12 Acuity: WILFRED 3 iw Historical: - Allergies: 10:16 PENICILLINS; iw - PMHx: 10:16 Hypertension; hyperthyroidism; Multiple Sclerosis; iw - PSHx: 10:16 Thyroidectomy; ; iw - Immunization history:: Adult Immunizations up to date. - Social history:: Smoking status: Patient/guardian denies using tobacco. - Ebola Screening: : Patient negative for fever greater than or equal to 101.5 degrees Fahrenheit, and additional compatible Ebola Virus Disease symptoms Patient denies exposure to infectious person Patient denies travel to an Ebola-affected area in the 21 days before illness onset No symptoms or risks identified at this time. - Family history:: not pertinent. - Hospitalizations: : No recent hospitalization is reported. Screenin:07 Abuse screen: Denies threats or abuse. Nutritional screening: No deficits noted. tw2 Tuberculosis screening: No symptoms or risk factors identified. Fall Risk Secondary diagnosis (15 points) impaired mobility. Assessment: 10:05 General: Appears in no apparent distress. slender, well groomed, Behavior is calm, tw2 cooperative, appropriate for age. Pain: Denies pain. Neuro: Level of Consciousness is awake, alert, obeys commands, Oriented to person, place. Cardiovascular: Heart tones S1 S2 Patient's skin is warm and dry. Respiratory: Airway is patent Respiratory effort is even, unlabored, Respiratory pattern is regular, symmetrical, Breath sounds are clear bilaterally. GI: No signs and/or symptoms were reported involving the gastrointestinal system. Abdomen is flat, Bowel sounds present X 4 quads. : Parent/caregiver report the patient having "odor with urine and her mind seems off from what she normally is". EENT: No signs and/or symptoms were reported regarding the EENT system. Derm: No signs and/or symptoms reported regarding the dermatologic system. Musculoskeletal: No signs and/or symptoms reported regarding the musculoskeletal system. Circulation, motion, and sensation intact. Range of motion: intact in all extremities. 11:05 Reassessment: Patient appears in no apparent distress at this time. No changes from tw2 previously documented assessment. Patient and/or family updated on plan of care and expected duration. Pain level reassessed. Patient is alert, oriented x 3, equal unlabored respirations, skin warm/dry/pink. 12:05 Reassessment: Patient appears in no apparent distress at this time. No changes from tw2 previously documented assessment. Patient and/or family updated on plan of care and expected duration. Pain level reassessed. Patient is alert, oriented x 3, equal unlabored respirations, skin warm/dry/pink. 12:38 Reassessment: Patient appears in no apparent distress at this time. No changes from tw2 previously documented assessment. Patient and/or family updated on plan of care and expected duration. Pain level reassessed. Patient is alert, oriented x 3, equal unlabored respirations, skin warm/dry/pink. Vital Signs: 10:12 BP 142 / 71; Pulse 64; Resp 16; Temp 97.5(TE); Pulse Ox 99% on R/A; Weight 45.36 kg; iw Height 5 ft. 4 in. (162.56 cm); Pain 0/10; 11:05 BP 139 / 78; Pulse 58; Resp 17; Pulse Ox 99% on R/A; tw2 12:05 BP 141 / 68; Pulse 56; Resp 17; Pulse Ox 100% on R/A; tw2 12:38 BP 155 / 78; Pulse 67; Resp 17; Pulse Ox 99% on R/A; tw2 10:12 Body Mass Index 17.16 (45.36 kg, 162.56 cm) iw ED Course: 10:00 Patient arrived in ED. rg4 10:00 Susan Harris MD is Private Physician. rg4 10:02 Jc Arizmendi MD is Attending Physician. rn 10:02 Bed in low position. Call light in reach. Side rails up X2. Adult w/ patient. Cardiac tw2 monitor on. Pulse ox on. NIBP on. Warm blanket given. 10:14 Triage completed. iw 10:16 Arm band placed on. iw 10:17 Mary Muñoz RN is Primary Nurse. tw2 10:40 Inserted saline lock: 22 gauge in left antecubital area, using aseptic technique. Blood tw2 collected. 10:50 Straight cath inserted, using sterile technique, 18 Fr. Specimen obtained. Returned tw2 louis urine. Patient tolerated well. 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 11:04 Blood Culture Adult (2) Sent. tw2 11:04 Urine Culture Sent. tw2 11:58 Awaiting: completion of IV fluids PRIOR to discharge. tw2 12:38 No provider procedures requiring assistance completed. IV discontinued, intact, tw2 bleeding controlled, No redness/swelling at site. Pressure dressing applied. Administered Medications: 11:45 Drug: NS 0.9% 500 ml Route: IV; Rate: bolus; Site: left antecubital; tw2 12:37 Follow up: Response: No adverse reaction; IV Status: Completed infusion; IV Intake: tw2 500ml 12:05 Drug: Macrobid 100 mg Route: PO; tw2 12:37 Follow up: Response: No adverse reaction tw2 Intake: 12:37 IV: 500ml; Total: 500ml. tw2 Outcome: 11:48 Discharge ordered by . rn 12:38 Discharged to home via wheelchair, u.s. revenue officer tw2 12:38 Condition: stable 12:38 Discharge instructions given to patient, u.s. revenue officer, Instructed on discharge instructions, follow up and referral plans. medication usage, Demonstrated understanding of instructions, follow-up care, medications, Prescriptions given X 1. 12:39 Patient left the ED. tw2 Addendum: 08/22/2018 09:34 Addendum: Culture Results: Positive urine culture. Bacteria is resistant to, has s s intermediate sensitivity, or is not tested against prescribed antibiotics. Report given to NANY for further evaluation and then to suppression crew leader for follow up with patient. Phone call Attempt #1 No answer, left Certified letter sent to listed address for patient. 08/25/2018 16:42 Addendum: Culture Results: Phone call Attempt #2 left voicemail. d m5 Signatures: Jalyn Espinosa, RN RN dm5 Linette Bello, RN RN Jc Gomez MD MD rn Smirch, Shelby, RN RN ss Mary Muñoz RN RN tw2 Michelle Aburto rg4
[2018-08-19] MEDS ORDERED: NA CHLORIDE 0.9% 500 ML ONE (11:55)
== END 2018-08-19 12:39 | disposition home or self-care (01) ==
LOC: ER 09:57
DX: N39.0 Urinary tract infection, site not specified (principal); E86.0 Dehydration; I10 Essential (primary) hypertension; Z88.0 Allergy status to penicillin
CPT/HCPCS: 36415; 51702; 80048; 81003; 81015; 84145; 85025; 87040; 87077; 87086; 87088; 87186; 96360; 99284

== ENCOUNTER 2019-09-08 08:53 | Emergency (ER) | payer OTHER ==
--- OUTSIDE RECORDS SUMMARY | 2019-09-08 08:59 | XMS REPORT | Continuity of Care Document ---
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 Active 04/11/[address] JES Active 01/29/20 [facility] BILLING [address] [place] [address] CVA Active 01/29/[address] AMS, CVA Active 01/29/[address] Asthenia Active 11/07/19 Problem 08/18/2017 [facility] (finding) [address] [place] [address] 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, 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 Medical (disorder) Center ALTERED MENTAL Active [place] STATUS, Medical UNSPECIFIED Center LOCAL-REL SYMPTC Active [facility] EPI W CMPLX PART Med ical SEIZ, Center Medications Medication Details Route Status Patient Ordering Order Source Instructions Provider Date hydrALAZINE 50 PO, Q8H-05, 0 Active 02/07[facility] mg oral tablet Refill(s) [address] [place] [address] levETIRAcetam 1,500 mg = 15 Active [place] 100 mg/mL oral , [place], Q12H, 0 2016 edical solution Refill(s) [place] NIFEdipine 60 mg PO, Daily, 0 Active [facility] oral tablet, Refill(s) [address] [place] [address] extended release [place] melatonin 3 mg 3 mg, PO, Active 02/07[facility] oral tablet Bedtime, 0 2016 Medical Refill(s) [place] NIFEdipine 60 mg Notes: (Same as: No Longer 01/11 [facility] oral tablet, Adalat CC, Active 2017 [facility] extended release Procardia XL) C enter Give on empty stomach. Take 1 hour before or 2 hours after meal; "Avoid grapefruit and grapefruit juice". Do not crush NIFEdipine 30 mg Notes: (Same as: No Longer 01/10 [place] oral tablet, Adalat CC, Active 2016 [facility] extended release Procardia XL) C enter Give on empty stomach. Take 1 hour before or 2 hours after meal; "Avoid grapefruit and grapefruit juice". melatonin Notes: (Same as: No Longer [place] Melatonin) Active 2016 Medical [place] Dilantin Notes: (Same as: Inactive [place] Dilantin) 2016 [facility] packet/syringe with water "Caution of interaction with continuous NG feedings: Withhold administration of nutritional supplements for 1-2 hours before and after phenytoin dose". Dilantin Notes: (Same as: No Longer [place] Dilantin) Active [address] [facility] packet/syringe with water "Caution of interaction with continuous NG feedings: Withhold administration of nutritional supplements for 1-2 hours before and after phenytoin dose". hydrALAZINE 25 Notes: (Same as: No Longer [place] mg oral tablet Apresoline) August Active 2016 Medical [facility] Center w/enteral feedings Take With Food lisinopril Notes: (Same as: Inactive [facility] Prinivil, 2016 [facility] Zestril) Center Dilantin Notes: (Same as: No Longer [place] Dilantin) Active [address] [facility] Center packet/syringe with water "Caution of interaction with continuous NG feedings: Withhold administration of nutritional supplements for 1-2 hours before and after phenytoin dose". hydrALAZINE 25 Notes: (Same as: Inactive [facility] mg oral tablet Apresoline) August 2016 Medical [facility] Center w/enteral feedings Take With Food. hydrALAZINE 25 Notes: (Same as: No Longer [place] mg oral tablet Apresoline) August Active 2016 Medical [facility] w/enteral feedings Take With Food. Insulin regular 60 units) No Longer [place] WASTE: F/P - Active 2017 [facility] Black; E - Center Municipal Trash Bin Stable for 28 days at room temperature Expires in days from Da te Dextrose 50% 12.5 gm, 25 mL, No Longer H [place] Syringe Route: IVP, Drug Active 2016 Medical Form: INJ, Center Dosing Weight 52.1, kg, PRN, PRN Blood Glucose Results, Start date: 02/01/17 17:19:00 CDT, Duration: 30 day, Stop date: 03/03/17 16:18:00 FINANCIAL ANALYSIS ADVISOR glucagon 1 mg, Route: IM, No Longer [place] Drug form: Active 2017 Medical PDR/INJ, PRN, Center Dosing Weight 52.1, kg, PRN Blood Glucose Results, Start date: 02/01/17 17:19:00 CDT, Duration: 30 day, Stop date: 03/03/17 16:18:00 FINANCIAL ANALYSIS ADVISOR NIFEdipine 30 mg Notes: (Same as: Inactive 02/01 [place] oral tablet, Adalat CC, 2016 Medical extended release Procardia XL) C enter Give on empty stomach. Take 1 hour before or 2 hours after meal; "Avoid grapefruit and grapefruit juice". Do not crush NIFEdipine 30 mg Notes: (Same as: Inactive 01/31 [place] oral tablet, Adalat CC, 2016 Medical extended release Procardia XL) C enter Give on empty stomach. Take 1 hour before or 2 hours after meal; "Avoid grapefruit and grapefruit juice". Do not crush Dilantin Notes: (Same as: No Longer [place] Dilantin) Do Active 2016 Medical not infuse Center greater than 50 mg/min. MEDICATION WASTE Product Size: 100 mg Product Wasted: ___ mg Ativan 2 mg, Route: IV, Inactive [place] ONCE, Dosing 2016 Medical Weight 52.1, kg, Center Start date: 01/31/17 11:10:00 CDT, Stop date: 01/31/17 11:10:00 CDT Dilantin + Notes: (Same as: Inactive [place] sodium chloride Dilantin) Do 2016 M edical 0.9% INJ 100 mL not infuse Cente r greater than 50 mg/min. MEDICATION WASTE Product Size: 100 mg Product Wasted: _0__ mg vancomycin + 2001 mg: infuse No Longer [place] sodium chloride over 2.5 hours Active 2016 edical 0.9% 250 mL INJ MEDICATION C enter (for IV set) 250 WASTE mL Product Size: 1000 mg Product Wasted: 250___ mg Dilantin 1 gm, Route: IV, Inactive [place] ONCE, Dosing 2016 Medical Weight 52.1, kg, Center Priority: NOW, Start date: 01/30/17 14:36:00 CDT, Stop date: 01/30/17 14:36:00 CDT metoprolol Notes: (Same as: No Longer [place] tartrate Lopressor) Active 2017 Medical Center fentaNYL Notes: (Same as: Inactive [place] Sublimaze) 2017 [facility] Preservative Center free. vancomycin + 2001 mg: infuse Inactive [facility] sodium chloride over 2.5 hours 2016 edical 0.9% 250 mL INJ MEDICATION C enter (for IV set) 250 WASTE mL Product Size: 1000 mg Product Wasted: ___ mg fentaNYL 25 microgram, Inactive [facility] Route: IV, ONCE, 2017 Medical Dosing Weight Center 52.1, kg, Start date: 01/30/17 4:56:00 CDT, Stop date: 01/30/17 4:56:00 CDT fentaNYL 25 microgram, Inactive [facility] Route: IV, ONCE, 2017 Medical Dosing Weight Center 52.1, kg, Start date: 01/29/17 22:21:00 CDT, Stop date: 01/29/17 22:21:00 CDT Dextrose 50% 12.5 gm, 25 mL, No Longer [facility] Syringe Route: IVP, Drug Active 2016 Medical Form: INJ, Center Dosing Weight 52.1, kg, PRN, PRN Blood Glucose Results, Start date: 01/29/17 21:54:00 CDT, Duration: 30 day, Stop date: 02/28/17 20:53:00 FINANCIAL ANALYSIS ADVISOR glucagon 1 mg, Route: IM, No Longer [place] Drug form: Active 2017 Medical PDR/INJ, PRN, Center Dosing Weight 52.1, kg, PRN Blood Glucose Results, Start date: 01/29/17 21:54:00 CDT, Duration: 30 day, Stop date: 02/28/17 20:53:00 FINANCIAL ANALYSIS ADVISOR insulin lispro 60 units) No Longer [place] WASTE: F/P - Active 2017 Medical Black; E - Center Municipal Trash Bin Stable for 28 days at room temperature. Expires in days from Da te docusate sodium Notes: (Same as: No Longer 01/30 [place] Colace) Active [address] [place] [address] Lactated Ringers 500 mL, 500 Inactive [place] (Bolus) IV ml/hr, Infuse 2017 [facility] Over: 1 hr, Center Route: IV, 500, Drug form: INJ, ONCE, Priority: STAT, Dosing Weight 52.1 kg, Start date: 01/29/17 19:48:00 CDT, Duration: 1 doses or times, Stop date: 01/29/17 19:48:00 CDT Azithromycin 3 Notes: Take 1 No Longer H [place] Day Dose Pack hour before or 2 Active [facility] edical 500 mg oral hours after [place] tablet meals. (Same As: Zithromax) Saline Flush Notes: (Same as: No Longer [place] 0.9% BD Posiflush) Active [address] [place] [address] docusate Notes: (Same as: Inactive [place] Colace) (Do Not 2017 [facility] Crush) Center senna Notes: (Same as: No Longer [place] Senokot) Active [address] [place] [address] famotidine Notes: (Same as: No Longer [place] Pepcid) Can be Active [address] [place] [address] dilute in 5-10cc Center NS IVP: Slow IV push over at least 2 minutes. losartan Notes: (Same as: No Longer [place] Cozaar) Active [address] [place] [address] Center atorvastatin Notes: (Same as: No Longer [place] Lipitor) Active [address] [place] [address] heparin 5,000 unit, Inactive [place] Route: SUB-Q, 2017 Medical Q8H, Dosing Center Weight 52.1, kg, Start date: 01/29/17 8:00:00 CDT, Duration: 30 day, Stop date: 02/28/17 0:00:00 FINANCIAL ANALYSIS ADVISOR heparin Notes: porcine No Longer [place] heparin Active 2016 [facility] Center Azithromycin 3 Notes: Take 1 Inactive [place] Day Dose Pack hour before or 2 2016 M edical 500 mg oral hours after Center tablet meals. (Same As: Zithromax) calcium Notes: (Same As: No Longer [place] carbonate 500 mg Tums) Calcium Active 2016 M edical (200 mg Carbonate 500 mg Center elemental = 200 mg calcium) oral elemental tablet calcium Dose = mg calcium carbonate ( mg elemental calcium) calcium Notes: WASTE: No Longer [place] gluconate + F/P - Sink; E - Active 2016 [facility] sodium chloride Municipal Trash Center 0.9% INJ 50 mL Bin sodium phosphate 30 mmol, 10 mL, No Longer 01/29 [place] + sodium Route: IVPB, Active 2016 Medical chloride 0.9% PRN, Dosing Center INJ 250 mL Weight 52.1, kg, PRN Abnormal Lab Result, Start date: 01/29/17 6:12:00 CDT, Duration: 30 day, Stop date: 02/28/17 5:11:00 FINANCIAL ANALYSIS ADVISOR, FOR ICU USE ONLY potassium Notes: (Same as: No Longer [place] chloride Potassium Active 2016 Medical Chloride) Center potassium Notes: (Same as: No Longer [place] phosphate + K Phosphate.) 1 Active 2016 Med ical sodium chloride mMol phoshate Ce nter 0.9% INJ 250 mL has 1.47 mEq potassium Infuse over 4 hours magnesium oxide Notes: (Same as: No Longer 01/29 [place] Mag-Ox 400) Active 2016 Medical Magnesium oxide Center [id number] elemental magnesium Dose=____mg magnesium oxide (___mg elemental magnesium) potassium Notes: (Same as: No Longer [place] phosphate-sodium Phos-NaK) Each Active 2016 Medical phosphate 250 1.5 [address]m pkt has Bj ter mg-280 mg-160 mg 250mg oral powder for phosphorous. Mix reconstitution w/2.5oz water and stir. magnesium Notes: WASTE: No Longer [place] as sulfate F/P - Sink; E - Active 2016 Medical Municipal Trash Center Bin Lactated Ringers 1,000 mL, 1,000 Inactive [place] (Bolus) IV ml/hr, Infuse 2017 Medical Over: 1 hr, Center Route: IV, 1,000, Drug form: INJ, ONCE, Priority: STAT, Dosing Weight 52.1 kg, Start date: 01/29/17 6:09:00 CDT, Duration: 1 doses or times, Stop date: 01/29/17 6:09:00 CDT vancomycin + 2001 mg: infuse Inactive [facility] sodium chloride over 2.5 hours 2017 edical 0.9% 250 mL INJ MEDICATION C enter (for IV set) 250 WASTE mL Product Size: 1000 mg Product Wasted: ___ mg Plegridy 125 microgram, Active [facility] SUB-Q, Q14D, 0 2016 Medical Refill(s) Center risedronate 150 150 mg = 1 tab, Active [facility] mg oral tablet PO, qMonth 2017 Medica l Center losartan 100 mg 100 mg = 1 tab, Active [facility] oral tablet PO, Daily, 0 2016 Medical Refill(s) Center atorvastatin 40 40 mg = 1 tab, Active [facility] mg oral tablet PO, Daily, 0 2016 Medi magaly Refill(s) Center oxybutynin 50 mg, PO, Active [facility] Daily, 0 2017 Medical Refill(s) Center nitroprusside 50 mg, PO, ONCE, No Longer [facility] 0 Refill(s) Active 2017 Medical Center metoprolol 100 mg = 1 tab, Active [place] tartrate 100 mg PO, BID, 0 2016 Medic al oral tablet Refill(s) Center fentaNYL 25 microgram, Inactive [facility] Route: IV, ONCE, 2017 Medical Dosing Weight Center 52.1, kg, Start date: 01/29/17 4:11:00 CDT, Stop date: 01/29/17 4:11:00 CDT cefepime Notes: (Same As: No Longer [place] Maxipime) Active [facility] Medical MEDICATION WASTE Center Product Size: 1000 mg Product Wasted: ___ mg Keppra Notes: (Same No Longer [facility] as:Keppra) Active 2017 Medical Center Visipaque 100 mL, Route: Inactive [place] 320mg/ml IVP, Drug Form: 2017 Medical SOLN, Dosing Center Weight 52.1, kg, ONCALL, STAT, Start date: 01/29/17 2:54:00 CDT, Duration: 1 doses or times, Dose = 2.2ml/kg, Max dose = 100ml -- "To be infused by Radiology Staff ONLY" ocular lubricant Notes: (Same as: No Longer 01/10 [place] Aquasite) Active 2017 Medical Center Lactated Ringers 1,000 mL, 1,000 No Longer 01/29 [place] (Bolus) IV ml/hr, Infuse Active 2017 [facility] Over: 1 hr, Center Route: IV, 1,000, Drug form: INJ, ONCE, Priority: STAT, Dosing Weight 60 kg, Start date: 01/28/17 23:55:00 CDT, Duration: 1 doses or times, Stop date: 01/28/17 23:55:00 CDT Tylenol Notes: Do not No Longer [place] exceed 4 gm/day. Active 2017 Medical (Same as: Center Tylenol) Saline Flush Notes: (Same as: No Longer [place] 0.9% BD Posiflush) Active 2017 [facility] nystatin topical Notes: (Same No Longer [place] 100,000 units/g as:Mycostatin, Active 2016 edical powder Nilstat) For Center external use only. BD Normal Saline Notes: (Same as: No Longer 01/10 [place] Flush BD Posiflush) Active 2017 [facility] chlorhexidine Notes: (Same As: No Longer [place] topical 0.12% Peridex) Active 2017 [facility] chlorhexidine Notes: (Same As: No Longer [place] topical 0.12% Peridex) Active 2017 [facility] labetalol 10 mg, Route: Inactive [place] IV, ONCE, Dosing 2017 Medical Weight 60, kg, Center Start date: 01/28/17 20:21:00 CDT, Stop date: 01/28/17 20:21:00 CDT cefepime 1 gm, Route: Inactive [place] IVPB, ONCE, 2017 Medical Dosing Weight Center 60, kg, Priority: STAT, Start date: 01/28/17 16:53:00 CDT, Duration: 1 doses or times, Stop date: 01/28/17 16:53:00 CDT, ABX Indication: Pneumonia vancomycin 2001 mg: infuse Inactive [facility] over 2.5 hours 2017 Medical MEDICATION Center WASTE Product Size: 1000 mg Product Wasted: ___ mg propofol INJ Notes: If No Longer [facility] s 1,000 mg Diprivan - Active 2016 Medical change bottle & Center tubing every 12 hr Per state nursing law propofol can only be given by a nurse if patient is intubated or being intubated (unless the nurse is a CT SCAN TECHNICIAN). Same as: Diprivan propofol 500 mg 500 mg, 50 mL, Inactive [facility] Rate: Titrate, 2017 Medical Start Dose: 5 Center microgram/kg/min , Titration: 5 microgram/kg/min every 15 min, Goal(s): MAP 65-85, Max Dose: 50 microgram/kg/min , Route: IV, Dosing Weight 60 kg, Total Volume: 50, Start date: 01/28/17 16:14:00 CDT, Duration:... fentaNYL 65, Max Dose: No Longer [facility] s 1000microgram/20 300 Active 2016 Medical ml drip (pyxis) microgram/hr, Ce nter 1,000 microgram Route: IV, Total Volume: 20, Start date: 01/28/17 15:07:00 CDT, Duration: 30 day, Stop date... midazolam 50mg/ Notes: (Same as: Inactive [facility] NS 50ml drip Versed) 2017 Medical (premixed) 50 mg Center Saline Flush Notes: (Same as: No Longer [facility] 0.9% BD Posiflush) Active 2017 [facility] Center Allergies, Adverse Reactions, Alerts Substance Category Reaction Severity Reaction Status Date Comments S ource type Reported penicillins Assertion Drug Active [facility] sulfa drugs Assertion Drug Active [facility] Immunizations Immunization Date Given Site Status Last Comments Source Updated pneumococcal 10/15/2005 Right arm completed Proske Chet as 23-valent vaccine [place] [facility] Results Order Name Results Value Reference Date Interpretation Comments [place] [facility] CHEM PANEL eGFR 99 02/04 Result [facility] Comment: The Medical eGFR is Center calculated using the CKD-EPI formula. In most young, healthy individuals the eGFR will be >90 mL/min/1.73m2 . The eGFR declines with age. An eGFR of 60-89 may be normal in some populations, particularly the elderly, for whom the CKD-EPI formula has not been extensively validated. Use of the eGFR is not recommended in the following populations:< br/>
Zoe viduals with unstable creatinine concentration s, including patients and those with serious co-morbid conditions.<b r/>
Patie nts with extremes in muscle mass or diet.

The data above are obtained from the National Kidney Disease Education Program (NKDEP) which additionally recommends that when the eGFR is used in patients with extremes of body mass index for purposes of drug dosing, the eGFR should be multiplied by the estimated BMI. CHEM PANEL CO2 22 24 - 32 02/04 [facility] CHEM PANEL Chloride Lvl 105 95 - 109 02/04 [facility] CHEM PANEL Calcium Lvl 8.6 8.5 - 10.5 02/04 [facility] CHEM PANEL Glucose Lvl 143 70 - 99 02/04 [facility] CHEM PANEL Sodium Lvl 137 135 - 145 02/04 [facility] CHEM PANEL Potassium Lvl 4.1 3.5 - 5.1 02/04 [facility] CHEM PANEL Creatinine 0.46 0.50 - 02/04 [facility] Lvl 1.40 [facility] CHEM PANEL BUN 22 7 - 22 02/04 [facility] CHEM PANEL AGAP 14.1 10.0 - 02/04 [place] 20.0 [facility] HEMATOLOGY Basophils # 0.1 0.0 - 0.2 02/04 [facility] HEMATOLOGY Basophils 1.0 0.0 - 1.0 02/04 [facility] HEMATOLOGY Segs-Bands # 5.2 1.5 - 8.1 02/04 [facility] HEMATOLOGY Lymphocytes # 1.6 1.0 - 5.5 02/04 [facility] HEMATOLOGY Monocytes # 1.2 0.0 - 0.8 02/04 [facility] HEMATOLOGY Eosinophils # 0.2 0.0 - 0.5 02/04 [place] [facility] HEMATOLOGY Eosinophils 2.7 0.0 - 4.0 02/04 [facility] HEMATOLOGY Monocytes 14.1 2.0 - 12.0 02/04 [facility] HEMATOLOGY Lymphocytes 19.5 20.0 - 02/04 [place] 40.0 [facility] HEMATOLOGY Segs 62.7 45.0 - 02/04 [place] 75.0 [facility] HEMATOLOGY RDW 13.3 11.5 - 02/04 [place] 14. [facility] HEMATOLOGY Platelet 179 133 - 450 02/04 [facility] HEMATOLOGY MPV 9.9 7.4 - 10.4 02/04 [facility] HEMATOLOGY MCHC 34.3 32.0 - 02/04 [place] 36.0 [facility] HEMATOLOGY Hgb 11.7 12.0 - 02/04 [place] 16.0 [facility] HEMATOLOGY Hct 34.0 36.0 - 02/04 [place] 48.0 [facility] HEMATOLOGY MCV 90.1 80.0 - 02/04 [place] 98.0 [facility] HEMATOLOGY MCH 30.9 27.0 - 02/04 [place] 31.0 [facility] HEMATOLOGY WBC 8.3 3.7 - 10.4 02/04 [facility] HEMATOLOGY RBC 3.78 4.20 - 02/04 [place] 5.40 [facility] CHEM PANEL Phosphorus 2.6 2.5 - 4.5 02/03 [facility] CHEM PANEL eGFR 102 02/03 [facility] Comment: The Medical eGFR is Center calculated using the CKD-EPI formula. In most young, healthy individuals the eGFR will be >90 mL/min/1.73m2 . The eGFR declines with age. An eGFR of 60-89 may be normal in some populations, particularly the elderly, for whom the CKD-EPI formula has not been extensively validated. Use of the eGFR is not recommended in the following populations:< br/>
Zoe viduals with unstable creatinine concentration s, including patients and those with serious co-morbid conditions.<b r/>
Patie nts with extremes in muscle mass or diet.

The data above are obtained from the National Kidney Disease Education Program (NKDEP) which additionally recommends that when the eGFR is used in patients with extremes of body mass index for purposes of drug dosing, the eGFR should be multiplied by the estimated BMI. CHEM PANEL Calcium Lvl 8.4 8.5 - 10.5 02/03 [facility] CHEM PANEL CO2 25 24 - 32 02/03 [facility] CHEM PANEL Glucose Lvl 170 70 - 99 02/03 [facility] CHEM PANEL BUN 17 7 - 22 02/03 [facility] CHEM PANEL Chloride Lvl 105 95 - 109 02/03 s [facility] CHEM PANEL Creatinine 0.41 0.50 - 02/03 [place] Lvl 1. [facility] CHEM PANEL Sodium Lvl 137 135 - 145 02/03 [facility] CHEM PANEL Potassium Lvl 4.9 3.5 - 5.1 02/03 [facility] CHEM PANEL AGAP 11.9 10.0 - 02/03 20. [facility] CHEM PANEL Magnesium Lvl 2.2 1.8 - 2.4 02/03 [facility] CHEM PANEL Procalcitonin 0.31 0.00 - 02/03 s Lvl 0. [facility] HEMATOLOGY Hgb 12.3 12.0 - 02/03 16.0 [facility] HEMATOLOGY Hct 35.9 36.0 - 02/03 48.0 [facility] HEMATOLOGY MCHC 34.2 32.0 - 02/03 36.0 [facility] HEMATOLOGY MCH 30.9 27.0 - 02/03 31.0 [facility] HEMATOLOGY MCV 90.4 80.0 - 02/03 98.0 [facility] HEMATOLOGY WBC 6.9 3.7 - 10.4 02/03 [facility] HEMATOLOGY RBC 3.97 4.20 - 02/03 5.40 [facility] HEMATOLOGY MPV 10.4 7.4 - 10.4 02/03 [facility] HEMATOLOGY Platelet 146 133 - 450 02/03 [facility] HEMATOLOGY RDW 13.5 11.5 - 02/03 [place] 14. [facility] HEMATOLOGY Eosinophils 1.7 0.0 - 4.0 02/03 [facility] HEMATOLOGY Monocytes 15.3 2.0 - 12.0 02/03 [facility] HEMATOLOGY Lymphocytes 18.8 20.0 - 02/03 [place] 40.0 [facility] HEMATOLOGY Segs 63.8 45.0 - 02/03 [place] 75.0 [facility] HEMATOLOGY Lymphocytes # 1.3 1.0 - 5.5 02/03 [facility] HEMATOLOGY Monocytes # 1.1 0.0 - 0.8 02/03 [facility] HEMATOLOGY Eosinophils # 0.1 0.0 - 0.5 02/03 [facility] HEMATOLOGY Segs-Bands # 4.4 1.5 - 8.1 02/03 [facility] HEMATOLOGY Basophils 0.4 0.0 - 1.0 02/03 [facility] CHEM PANEL Phosphorus 2.3 2.5 - 4.5 02/02 [facility] CHEM PANEL Phosphorus 1.8 2.5 - 4.5 02/02 [facility] CHEM PANEL Magnesium Lvl 2.0 1.8 - 2.4 02/02 [facility] CHEM PANEL Procalcitonin 0.59 0.00 - 02/02 [facility] s Lvl 0. [facility] CHEM PANEL eGFR 98 02/02 [facility] Comment: The Medical eGFR is Center calculated using the CKD-EPI formula. In most young, healthy individuals the eGFR will be >90 mL/min/1.73m2 . The eGFR declines with age. An eGFR of 60-89 may be normal in some populations, particularly the elderly, for whom the CKD-EPI formula has not been extensively validated. Use of the eGFR is not recommended in the following populations:< br/>
Zoe viduals with unstable creatinine concentration s, including patients and those with serious co-morbid conditions.<b r/>
Patie nts with extremes in muscle mass or diet.

The data above are obtained from the National Kidney Disease Education Program (NKDEP) which additionally recommends that when the eGFR is used in patients with extremes of body mass index for purposes of drug dosing, the eGFR should be multiplied by the estimated BMI. CHEM PANEL Calcium Lvl 8.2 8.5 - 10.5 02/02 [facility] CHEM PANEL Chloride Lvl 108 95 - 109 02/02 [facility] CHEM PANEL AGAP 11.5 10.0 - 02/02 20.0 [facility] CHEM PANEL CO2 25 24 - 32 02/02 [facility] CHEM PANEL Creatinine 0.47 0.50 - 02/02 [place] Lvl 1.40 [facility] CHEM PANEL Potassium Lvl 4.5 3.5 - 5.1 02/02 [facility] CHEM PANEL Sodium Lvl 140 135 - 145 02/02 [facility] [facility] CHEM PANEL BUN 16 7 - 22 02/02 [facility] CHEM PANEL Glucose Lvl 145 70 - 99 02/02 [facility] HEMATOLOGY RDW 13.6 11.5 - 02/02 [place] 14.5 [facility] HEMATOLOGY Platelet 126 133 - 450 02/02 [facility] HEMATOLOGY MPV 9.6 7.4 - 10.4 02/02 [facility] HEMATOLOGY WBC 6.6 3.7 - 10.4 02/02 [facility] HEMATOLOGY RBC 3.83 4.20 - 02/02 5.40 [facility] HEMATOLOGY MCHC 33.7 32.0 - 02/02 36.0 [facility] HEMATOLOGY MCH 30.6 27.0 - 02/02 [place] 31.0 [facility] HEMATOLOGY Hgb 11.7 12.0 - 02/02 16.0 [facility] HEMATOLOGY Hct 34.8 36.0 - 02/02 48.0 [facility] HEMATOLOGY MCV 90.8 80.0 - 02/02 [place] 98.0 [facility] HEMATOLOGY Eosinophils # 0.1 0.0 - 0.5 02/02 [facility] HEMATOLOGY Monocytes # 0.9 0.0 - 0.8 02/02 [facility] HEMATOLOGY Lymphocytes # 1.8 1.0 - 5.5 02/02 [facility] HEMATOLOGY Basophils 0.7 0.0 - 1.0 02/02 [facility] HEMATOLOGY Segs-Bands # 3.8 1.5 - 8.1 02/02 [facility] HEMATOLOGY Eosinophils 1.1 0.0 - 4.0 02/02 a s [facility] HEMATOLOGY Lymphocytes 26.8 20.0 - 02/02 [place] 40.0 [facility] HEMATOLOGY Monocytes 13.1 2.0 - 12.0 02/02 [facility] HEMATOLOGY Segs 58.3 45.0 - 02/02 [place] 75.0 [facility] PARATHYROID Ca Ion WB 1.04 1.05 - 02/02 [place] PROFILE . [facility] PARATHYROID Ca Norm WB 1.08 1.05 - 02/02 [facility] PROFILE . [facility] CHEM PANEL Magnesium Lvl 1.9 1.8 - 2.4 02/01 [place] [facility] CHEM PANEL Lactic Acid 1.3 0.5 - 2.2 02/01 [facility] PARATHYROID Ca Ion WB 1.10 1.05 - 02/01 [place] PROFILE . [facility] PARATHYROID Ca Norm WB 1.13 1.05 - 02/01 [place] PROFILE . [facility] TOXICOLOGY Vanco Tr TND 0300 02/01 [facility] TOXICOLOGY Vanco Tr 16.4 02/01 [facility] ANEMIA Vitamin B12 1271 254 - 1320 01/31 [facility] STUDY [facility] CHEM PANEL Vitamin B6 6.8 2.0 - 32.8 01/31 [facility] Comment: Medical Performed At: [facility]
[address] [place] [address] [id number]<br/ >Melissa Hui MD Ph:[phone] CHEM PANEL Procalcitonin 1.36 0.00 - 01/31 [place]. [facility] CHEM PANEL Lactic Acid 1.5 0.5 - 2.2 01/31 [place] [facility] HEMATOLOGY Sed Rate 21 0 - 20 01/31 [facility] IMMUNOLOGY SS-B ([place]) Ab <0.2 <=0.9 AI 01/[place] [facility] IMMUNOLOGY SS-A ([place]) Ab <0.2 <=0.9 AI 01/[place] [facility] IMMUNOLOGY C-REACTIVE 36.5 <=2.9 mg/L 01/[place] PROTEIN [facility] CHEM PANEL Lactic Acid 1.8 0.5 - 2.2 01/31 [place] [facility] PARATHYROID Ca Norm WB 1.11 1.05 - 01/31 [place] PROFILE 1. [facility] PARATHYROID Ca Ion WB 1.11 1.05 - 01/31 [place] PROFILE 1. [facility] TOXICOLOGY Vanco Tr TND 0530 01/30 [facility] TOXICOLOGY Vanco Tr 8.0 01/30 [facility] ANEMIA Vitamin B12 1449 254 - 1320 01/29 [facility] STUDY Lvl [facility] CARDIAC Troponin-T 0.010 0.000 - 01/29 [place] ENZYMES 0.100 [facility] CARDIAC Troponin-I 0.11 0.00 - 01/29 [facility] ENZYMES 0.40 [facility] CHEM PANEL Vitamin B6 5.4 2.0 - 32.8 01/29 [place] Comment: Medical Performed At: [facility]
[address], [place] [id number]<br/ >Melissa Hui MD Ph:[phone] HEMATOLOGY Sed Rate 5 0 - 20 01/29 [facility] IMMUNOLOGY C-ANCA Negative Negative 01/29 [facility] (01/29/17 10:25 AM) [facility] IMMUNOLOGY P-ANCA Negative Negative 01/29 [facility] (01/29/17 10:25 AM) [facility] IMMUNOLOGY C-REACTIVE 49.7 <=2.9 mg/L 01/[place] PR[place] [facility] IMMUNOLOGY SS-B ([place]) Ab <0.2 <=0.9 AI 01/29 [place] [facility] IMMUNOLOGY SS-A ([place]) Ab <0.2 <=0.9 AI 01/29 [place] [facility] IMMUNOLOGY YANDY Negative Negative 01/29 [facility] (01/29/17 10:25 AM) [facility] IMMUNOLOGY DNA Ab (DS) Negative Negative 01/29 [facility] (01/29/17 10:25 AM) [facility] CARDIAC Troponin-T 0.015 0.000 - 01/29 [place] ENZYMES 0.100 [facility] CARDIAC Troponin-I 0.18 0.00 - 01/29 [place] ENZYMES 0. [facility] CHEM PANEL Lipase Lvl 125 73 - 393 01/29 [facility] CHEM PANEL Amylase Lvl 165 25 - 115 01/29 [facility] BACTERIAL - Source Strep Urine 01/29 [place] *NA* /2016 Medical (01/29/17 12:17 AM) Cent er BACTERIAL - Strep Negative Negative 01/29 [facility] SEROLOGY pneumoniae Ag (01/29/17 12:17 AM) /2016 [facility] DRUG SCREEN U Opiate Scr Negative Negative 01/29 [place] *[place] (01/29/17 12:17 AM) Cent [facility] DRUG SCREEN U Cannab Scr Negative Negative 01/29 [place] *[place] (01/29/17 12:17 AM) [facility] DRUG SCREEN U Cocaine Scr Negative Negative 01/29 [place] *NA* Medical (01/29/17 12:17 AM) Cent [facility] DRUG SCREEN U Benzodia Positive Negative [place]/29 [place] *ABN* Medical (01/29/17 12:17 AM) Cent [facility] DRUG SCREEN U Wendy Scr Negative Negative 01/29 [place] *NA[place] (01/29/17 12:17 AM) Cent er DRUG SCREEN UDS Note See Note 01/29 [place] (01/29/17 12:17 AM) /2016 [facility] DRUG SCREEN U Phencyc Scr Negative Negative 01/29 [place] *NA* Medical (01/29/17 12:17 AM) Cent er DRUG SCREEN U Amph Scr Negative Negative 01/[place] *NA* [place] (01/29/17 12:17 AM) Cent [place] BACTERIAL - MRSA by PCR Negative 01/29 [place] SER[place]Y (01/28/17 9:31 PM) /2016 [facility] CARDIAC Troponin-T 0.017 0.000 - 01/29 [place] ENZYMES 0.100 [facility] CARDIAC Troponin-I 0.15 0.00 - 01/29 [place] ENZYMES 0.40 [facility] CARDIAC BNP 372 <=100 01/29 [place] ENZYMES pg/mL /2016 [facility] CHEM PANEL Bili Total 0.5 0.2 - 1.3 01/29 [facility] CHEM PANEL Alk Phos 74 39 - 136 01/29 [facility] CHEM PANEL Albumin Lvl 3.0 3.5 - 5.0 01/29 [place] [facility] CHEM PANEL ALT 36 0 - 65 01/29 [facility] CHEM PANEL Total Protein 6.0 6.4 - 8.4 01/29 [place] [facility] CHEM PANEL AST 32 0 - 37 01/29 [facility] CHEM PANEL Globulin 3.0 2.7 - 4.2 01/29 [facility] CHEM PANEL A/G Ratio 1.0 0.7 - 1.6 01/29 [facility] CHEM PANEL B/C Ratio 16 6 - 25 01/29 [facility] HEMATOLOGY INR 1.14 0.85 - 01/29 [place] 1.17 [facility] HEMATOLOGY PTT 29.4 22.9 - 01/29 [place] 35.8 [facility] HEMATOLOGY PT 14.6 12.0 - 01/29 [place] 14.7 [facility] LIPIDS VLDL 19 01/29 [facility] LIPIDS Trig 96 <=149 01/29 mg/dL [facility] LIPIDS Chol 110 <=199 01/29 [place] mg/dL [facility] LIPIDS HDL 47 >=61 mg/dL 01/29 [facility] LIPIDS LDL 44 <=99 mg/dL 01/29 [place] (Calculated) [facility] LIPIDS CHD Risk 2.34 3.90 - 01/29 [place] 5.80 [facility] MOLECULAR RSV PCR Negative Negative 01/29 [place] [facility] (01/28/17 9:31 PM) /[facility] Influenza A Negative Negative 01/29 [place] [facility]NOSTIC PCR (01/28/17 9:31 PM) [facility] Influenza B Negative Negative 01/29 [place] DIAGNOSTIC PCR (01/28/17 9:31 PM) /2016 [facility] [place] 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/29 [place] DIAGNOSTIC Respiratory (01/28/17 9:31 PM) /2016 Medical Panel PCR Center SPECIAL Hgb A1C 5.8 <=5.6 % 01/29 [facility] [place] CHEMISTRY [facility] BODY FLUIDS WBC CSF 0 0 - 53 01/28 [facility] BODY FLUIDS RBC CSF 2 0 - 03 01/28 [facility] BODY FLUIDS Clarity CSF Clear Clear 01/28 [place] (01/28/17 4:55 PM) [facility] BODY FLUIDS Color CSF Colorless Colorless 01/28 [place] (01/28/17 4:55 PM) /2016 [facility] BODY FLUIDS Tube Num CSF 4 01/28 [place] [facility] BODY FLUIDS Supernat CSF Colorless Colorless 01/28 [place] (01/28/17 4:55 PM) [facility] BODY FLUIDS Glucose CSF 61 45 - 80 01/28 [facility] BODY FLUIDS Protein CSF 47 15 - 45 01/28 [facility] BODY FLUIDS RBC CSF 67 0 - 03 01/28 [facility] BODY FLUIDS Clarity CSF Clear Clear 01/28 [place] (01/28/17 4:24 PM) [facility] BODY FLUIDS WBC CSF 1 0 - 53 01/28 [facility] BODY FLUIDS Supernat CSF Colorless Colorless 01/28 [place] (01/28/17 4:24 PM) [facility] BODY FLUIDS Color CSF Colorless Colorless 01/28 [place] (01/28/17 4:24 PM) [facility] BODY FLUIDS Tube Num CSF 1 01/28 [place] [facility] IMMUNOLOGY Alb CSF (CPE) 26.4 14.0 - 01/28 [place] 25[place]0 [facility] IMMUNOLOGY Alb (CPE) 2700.0 3400.0 - 01/28 [place] 5000.0 [facility] IMMUNOLOGY IgG (CPE) 759 694 - 1618 01/28 [facility] IMMUNOLOGY IgG Lvl CSF 4.5 2.0 - 4.0 01/28 [place] [facility] IMMUNOLOGY IgG Index 0.6 0.3 - 0.7 01/28 [facility] IMMUNOLOGY Description The gel 01/28 [facility] CSF demonstrat [facility] appropriat e resolution of the main protein bands. The gamma region shows continuous distributi on of proteins both in the CSF and in the serum. No oligoclona l bands are detected. IMMUNOLOGY PE Interp CSF CSF 01/[address] [place] [address] [facility] resis did not reveal evidence of an oligoclona l process in the MANAGING MEMBER. The CSF IgG index is within the reference range indicating that there is no elevation in intracereb ral IgG synthesis. The CSF/serum albumin ratio is elevated. In the absence of a significan t amount of RBCs in the CSF specimen (2/mm3), this is consistent with increased permeabili ty of the blood brain barrier. The electronic medical record has been reviewed for relevant history. I have personally reviewed the test results and concur with the resident's interpreta tion. CPT: 34140-LO URINE AND UA Blood Large Negative 01/28 [facility] STOOL *ABN* [facility] (01/28/17 3:30 PM) Cente r URINE AND UA Bili Negative Negative 01/28 [facility] *NA* [facility] (01/28/17 3:30 PM) Cente r URINE AND UA Ketones Negative Negative 01/28 [facility] *NA* [facility] (01/28/17 3:30 PM) Cente r URINE AND UA Nitrite Negative Negative 01/28 [facility] (01/28/17 3:30 PM) [facility] URINE AND UA Leuk Est Small Negative 01/28 [facility] *ABN* [facility] (01/28/17 3:30 PM) Cente r URINE AND UA 0.2 0.1 - 1.0 01/28 [facility] Urobilinogen /2016 [facility] URINE AND UA Turbidity Slight Cloudy Clear 01/28 [facility] (01/28/17 3:30 PM) [facility] URINE AND UA Spec Grav 1.025 <=1.030 01/28 [facility] STOOL [facility] URINE AND UA pH 6.5 5.0 - 8.0 01/28 [facility] URINE AND UA Protein >=300 Negative 01/28 [facility] mg/dL mg/dL /2016 [facility] URINE AND UA Glucose Negative Negative 01/28 [facility] (01/28/17 3:30 PM) [facility] URINE AND UA Color Yellow Yellow 01/28 [facility] STOOL *NA* [facility] (01/28/17 3:30 PM) Cente r URINE AND UA WBC 6-10 /HPF None Seen 01/28 [facility] STOOL /HPF /2016 [facility] URINE AND UA Sq Epi Occasional Few /LPF 01/28 [facility] STOOL /LPF [facility] URINE AND UA Bacteria Occasional None Seen 01/28 [facility] STOOL /HPF /HPF [facility] URINE AND UA RBC 11-20 /HPF 0 - 2 01/28 [facility] CARDIAC Total CK 40 12 - 191 01/28 [facility] ENZYMES [facility] CHEM PANEL AST 21 0 - 37 01/[address] CHEM PANEL Total Protein 5.2 6.4 - 8.4 01/28 [facility] CHEM PANEL ALT 27 0 - 65 01/[address] CHEM PANEL Albumin Lvl 2.5 3.5 - 5.0 01/28 [facility] CHEM PANEL Alk Phos 62 39 - 136 01/28 [facility] [address] [place] [address] CHEM PANEL Globulin 2.7 2.7 - 4.2 01/[address] CHEM PANEL Bili Indirect 0.4 0.0 - 1.0 01/28 [facility] CHEM PANEL A/G Ratio 0.9 0.7 - 1.6 01/28 [facility] [address] [place] [address] CHEM PANEL Bili Direct 0.1 0.0 - 0.3 01/28 [facility] CHEM PANEL Bili Total 0.5 0.2 - 1.3 01/28 [facility] [address] [place] [address] HEMATOLOGY RBC Morph Normal 01/28 [facility] (01/28/17 3:00 PM) [facility] HEMATOLOGY Plt Morph Normal 01/28 [facility] (01/28/17 3:00 PM) [facility] Pathology Reports No Data Provided for This Section Diagnostic Reports Report Value Date Source Abdomen AP DX EXAM: XR ABDOMEN 1 VIEW 02/03/2017 [facility] DATE: 02/03/2017 7:[address] INDICATION: - Dobbhoff placement COMPARISON: 01/28/2017 TECHNIQUE: Single AP view of the abdomen. 1 image(s) obtained. FINDINGS: Lines and tubes: Feeding tub e tip overlies the gastric antrum. Guidewire is in place. Lower thorax: Left retrocard iac airspace opacity. This may represent singly or any combination of layering pleural effusion, subsegmental atelectasis and/or pneumonia. Bowel: Nonobstructive bowel gas pattern. Solid organs: No abnormal mass or organomegaly s een. Calcifications: No abnormal calcifications found . Bones: No acute abnormality. Other: None IMPRESSION: 1. Tubes, as above. 2. Nonobstructive bowel gas pattern. Brain w/wo contrast MRI EXAM: MRI BRAIN WITH AND WITHOUT CONTRAS T 02/02/2017 [facility] DATE: 02/02/2017 Center INDICATION: - Seizures with decreased level of consciousness, not improved, concerns for brain injury COMPARISON: MRI brain dated 01/29/2017 TECHNIQUE: Multiplanar, mult isequence non-contrast MRI images of the brain. Multiplanar imaging is subsequently obtained following intravenous gadolinium contrast. IV contrast: 10 mL of Dotarem FINDINGS: No significant change is see n relative to 01/29/2017. Extensive confluent T2/FLAIR hyperintensity in the subcortical and periventricular white matter is redemonstrated. Diffuse prominence of the ventric les and cerebral sulci is st able. There is no evidence of extra-axial fluid collection or midline shift. Diffusion-weighted imaging does not reveal acute ischemic change. No abnormal parenchymal or leptomeningeal enhancement is seen. There is persistent opacific ation of the left maxillary sinus with scattered mucosal thickening of the paranasal sinuses. No abnormal susceptibility artifact is seen. IMPRESSION: 1. No adverse interval change relative to 01/29. 2. Persistent extensive chr onic microangiopathic white matter changes and diffuse volume loss with ventriculomegaly. Chest 1view DX EXAM: XR CHEST 1 VIEW 01/30/2017 [facility] DATE: 01/30/2017 12:00 AM CDT Ce nter INDICATION: - intubated COMPARISON: 01/28/2017 TECHNIQUE: AP chest FINDINGS: Lines, tubes and hardware: T he endotracheal tube and gastric tube are stable in position. Lungs and pleura: Hazy infra hilar opacities are seen bilaterally, possibly corresponding to the groundglass opacity seen on the recent CT, possibly representing aspiration, other infection, and/or atele ctasis. No pleural effusion or pneumothorax is s een. Heart and mediastinum: The h eart size is normal for technique. The aorta is tortuous and calcified. Bones: The osseous structures are stable. IMPRESSION: 1. Bilateral infrahilar air space opacities, possibly representing aspiration, other infection, and/or atelectasis. Brain w/wo contrast MRI EXAM: MRI BRAIN WITH AND WITHOUT CONTRAS T 01/29/2017 [facility] DATE: 01/29/2017 Center INDICATION: Concern for stroke COMPARISON: Brain CT dated 01/28/2017 TECHNIQUE: Multiplanar, mult isequence non-contrast MRI images of the brain. Multiplanar imaging is subsequently obtained following intravenous gadolinium contrast. IV contrast: 10 mL Dotarem FINDINGS: Some of the DWI images are l imited by distortion. However, no diffusion restriction is evident. Susceptibility weighted images fail to disclose any underlying acute intracranial hemorrhage. No intracranial mass or extra-axial collection is evident. A small round T2 hyperintens e, nonenhancing focus in the right cerebellum is nonspecific and likely represent sequela of prior insult. A similar but smaller lesion is present in the left cerebellum. The re is diffuse cerebral and c erebellar volume loss with associated ventriculomegaly in widening of the extra-axial spaces. There are confluent T2 hyperintensities in the periventricular/deep white matter . There are superimposed lacunar infarcts in the basal ganglia and thalami. The ventricles and basal cis terns are patent. Ventriculomegaly is present without suggestion of ventriculo-sulcal disproportion. The flow voids of the major arteries at the cranial base are preserved. Post-contrast images reveal no abnormal parenchymal or leptomeningeal enhancement. The vascular structures enhance uneventfully. Again, there is diffuse T2 s ignal elevation within the left maxillary antrum. There are nonspecific mucosal changes in the rest of the paranasal sinuses. Trace mastoid effusions an flow within the depen dent portions of the nasopharynx are nonspecific . IMPRESSION: No acute intracranial hemorrhage or recent large territory ischemia Advanced chronic microvascul ar ischemic changes in the white matter with superimposed multifocal lacunar infarcts. T2 hyperintense lesions in the cerebellum likely also represent sequela of remote insults. Diffuse cortical volume loss with ventriculomegaly. No suggestion of ventriculo-sulcal disproportion Gallbladder US EXAM: US ABDOMEN LIMITED 01/29/2017 [facility] DATE: 01/29/2017 6:[address] INDICATION: - rule out acute cholecystitis ADDITIONAL INFORMATION: None. COMPARISON: CTA 01/29/2017. TECHNIQUE: Multiplanar efren joya and color Doppler ultrasound of the right [...] acute cholecystitis. 2. Bilateral small pleural effusions. Chest Pulmonary EXAM: CTA CHEST WITH CONTRAST 01/29/2017 [facility] Embolism CTA DATE: 01/28/2017 11:26 PM CDT Ce nter INDICATION: - seizure activity, hypoxic, tachyp neic, rule out PE COMPARISON: No prior CT for comparison, chest ra diograph 01/28/2017 TECHNIQUE: Volumetric CT acq uisition of the chest, during pulmonary arterial phase, after intravenous contrast. Axial, sagittal, coronal, and oblique MIP reconstructions are created at the acquisition workstation. IV Contrast: 60 mL of Visipaque 320 DLP: 520 mGy-cm FINDINGS: Lines and tubes: The endotra cheal tube is approximately 3 cm above the primo. A gastric tube courses through the esophagus and into the stomach with its tip not visualized on this study. Lower neck: The right thyroi d lobe is missing. A 3 mm hypodense nodule is seen in the thyroid isthmus. Heart, Mediastinum, and Grea t Vessels: Cardiothoracic ratio measures 11.4/22.4. Mild reflux of contrast into the IVC is noted. The RV/LV ratio is less than 0.9. No significant pericardial effusion is id entified. Measurements and a ppearance of the thoracic aorta are normal. At the same level where the ascending aorta measures 3.1 cm the pulmonary trunk measures 2.2 cm. There is no pulmonary embolus. Lymph Nodes: There is no hil ar, mediastinal, axillary or internal mammary lymphadenopathy. Lungs: Patchy groundglass op acities with subtle tree-in-bud nodularity is seen in the posterior aspect of the right upper lobe and dependent aspects of both lower lobes. Mild dependent enhancing atelect asis is seen in both lower l obes. Mild bronchial wall thickening is seen in both lower lobes. A focus of mucus plugging is seen in the right lower lobe. Pleura: Mild biapical pleura l thickening/scarring is noted. Small bilateral pleural effusions are present. No pneumothorax is seen. Esophagus and Upper abdomen: The partially visualized gallbladder demonstrates edema of the gallbladder wall with pericholecystic fluid. Bones and soft tissues: A sc lerotic focus in the T8 vertebral body likely represents a bone island. No aggressive osseous lesion is seen. Mild kyphosis of the upper thoracic spine is noted. IMPRESSION: 1. No pulmonary embolus. 2. Patchy groundglass opaci ties with tree-in-bud nodularity in the posterior right upper lobe and dependent regions of both lower lobes with mild associated lower lobe bronchial wall thickening and rig ht lower lobe mucus plugging . This may represent aspiration pneumonia/pneumonitis or other infectious/inflammatory process. A follow-up CT thorax is recommended in 3 months after appropriate treatment. 3. Partially visualized maura matous gallbladder wall with pericholecystic fluid, nonspecific. A right upper quadrant ultrasound is recommended for further evaluation. Brain wo contrast CT EXAM: CT BRAIN WITHOUT CONTRAST 01/29/2017 [facility] DATE: 01/29/2017 at 450 Center INDICATION: Left-sided weakness, rule out stroke COMPARISON: CT brain dated 01/28/2017 TECHNIQUE: Axial CT images o f the brain were obtained. Sagittal and coronal reformats. IV contrast: None DLP: 4155 mGy-cm FINDINGS: No acute intracranial hemorr christianne, mass effect or midline shift. No extra-axial fluid collections. Global volume loss with associated compensatory ventricular dilatation. Confluent subcortical/periventri cular white matter hypodensi ties are noted in both cerebral hemispheres. Basilar cisterns are patent. Intraocular lens replacement is noted bilaterally. Mucous retention cyst in the left maxillary sinus. Other paranasal sinuses and mastoid air cells are clear. No acute osseous findings. Atherosclerosis. IMPRESSION: No adverse interval change. No hemorrhage. Further evaluation with MRI should be considered if there is clinical concern for an acute ischemic event. Brain/Neck Stroke EXAM: CTA BRAIN 01/29/2017 [facility] al perfusion CTA EXAM: CTA NECK Center EXAM: CT PERFUSION BRAIN DATE: 04/30/2016 at 451 INDICATION: Rule out stroke, vasculitis COMPARISON: Same day CT brain without contrast, CT brain dated 01/28/2017 TECHNIQUE: - Dynamic CT perfusion image s on a limited area of the brain [...] of CT angiograph y. 3-D CT angiographic image s are created using MIP technique at the acquisition workstation. The source images are also presented for interpretation. IV contrast: 100 mL Visipaque 320 DLP: 4155 mGy-cm FINDINGS: NECK CTA: Aortic arch: The great vesse ls originate from the aortic arch in the standard configuration. Atherosclerotic calcifications at the origin of left subclavian artery. There is however no origin stenosis o f major vessels.. The vertebral artery origins a re patent bilaterally. Carotid arteries: The cervic al common carotid arteries and cervical internal carotid arteries are patent. There are minimal areas of noncalcified atherosclerotic plaque at the carotid bifurcations. No h emodynamically significant s tenosis of the carotid bifurcations or internal carotid arteries is evident, by NASCET criteria. Vertebral arteries: The extr acranial vertebral arteries are patent, without signs of flow-limiting dissection or stenosis. The soft tissues of the neck and other i ncidental structures are unremarkable. BRAIN CTA: Anterior circulation: [...] cerebral arteries are patent. origin of left GLASS TECHNICIAN is noted. The deep cerebral veins and major venous sinuses are normal. The brain parenchyma and other incidental struct ures are unremarkable. CT PERFUSION: There is no regional abnorma lity in cerebral blood flow, cerebral blood volume, or transit time in the imaged areas of the brain to suggest active oligemia or infarction. RAPID SUMMARY: CBF (<30%) volume: 0 mL Perfusion (Tmax>6.0s) volume: mL Mismatch volume: 0 mL Mismatch ratio: None CT soft tissue neck. Endotra cheal and enteric tubes are noted. No enlarged cervical lymph nodes. Visualized lung apices demonstrate biapical pleural thickening/scarring. Multilevel degenerative changes of the cervical and upper th oracic spine. No acute osseous findings. Incidental note is made of bilateral palatine cherie. IMPRESSION: 1. 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 No flow- limiting stenosis or branch occlusion in the intracranial vasculature 2. No hemodynamically signif icant stenosis in the cervical carotid and extracranial vertebral arteries 3. Normal CT perfusion 4. Incidental palatine cherei [All qualitative and quantit ative assessments of carotid bifurcation and proximal internal carotid artery stenosis are made at referencing the distal internal carotid artery.] [Cerebral perfusion analysis using computed tomography with contrast administration, including post-processing of parametric maps with determination of cerebral blood flow (CBF), cerebral blood volume (CBV) and mean transit time (MTT).] Abdomen AP DX EXAM: XR ABDOMEN 1 VIEW 01/28/2017 [facility] DATE: 01/28/2017 9:[address] INDICATION: - NG tube placement ADDITIONAL INFORMATION: None. COMPARISON: None. TECHNIQUE: Limited AP view of the abdomen for tube placement assessment. Number of images: 1 FINDINGS: Enteric suction tube tip in the stomach with man ehole at the GE junction. IMPRESSION: Enteric suction tube tip in the stomach with sidehole at the GE junction. Advancement by 5 cm recommended. Chest 1view DX EXAM: XR CHEST 1 VIEW 01/28/2017 [facility] DATE: 01/28/2017 9:[address] INDICATION: - intubated COMPARISON: Chest radiograph 01/28/2017 TECHNIQUE: AP chest FINDINGS: Lines, tubes and hardware: T he endotracheal tube and gastric tube are stable in position. Lungs and pleura: The lungs are hyperinflated. Interval resolution of the left lower lung airspace opacity is noted, which likely represented atelectasis. The costophrenic sulci are sharp. No definite p neumothorax is seen. Pulmonary vascularity is no rmal. Heart and mediastinum: The h eart size is normal for technique. The aorta is mildly tortuous and calcified. Bones: No acute bony abnormality is identified. IMPRESSION: 1. Interval resolution of t he left lower lung airspace opacity, which likely represented atelectasis. Brain wo contrast CT CT HEAD WITHOUT CONTRAST 01/28/2017 [facility] DATE: Center COMPARISON: None. HISTORY: - AMS. TECHNIQUE: Contiguous axial images of the brain were obtained without intravenous contrast administration. Sagittal and coronal reformats were also provided. DLP: 753.9 mGy-cm. FINDINGS: There are no acute hemorrhag es or acute infarcts. The lopes-white interfaces are well defined. Low density is noted within the periventricular white matter consistent with chronic small vessel ischemic disease. There is prominence of the cortical sulci, fissures, cisterns and ventricles consistent with cortical atrophy. There are no acute bony abno rmalities. The calvarium is intact. Atherosclerotic calcification is noted within the payton of the bilateral vertebral and cavernous internal carotid arteries. Large mucous r etention cyst is noted filling the left maxillar y sinus. IMPRESSION: 1. No acute intracranial abnormality. 2. Age related volume loss. 3. White matter hypodensity consistent with chronic small vessel ischemic disease. 4. Arterial atherosclerosis. 5. Large left maxillary sinus mucus retention cy st. Chest 1view DX EXAM: XR CHEST 1 VIEW 01/28/2017 [facility] DATE: 01/28/2017 at 1509 hours C enter INDICATION: Altered mental status COMPARISON: None. TECHNIQUE: AP chest FINDINGS: Lines, tubes and hardware: T he endotracheal tube tip projects 4.7 cm above the primo. A gastric suction tube passes below the diaphragm, with the side-port overlying the gastric esophageal junction. Lungs and pleura: The lungs are hyperinflated with left basilar airspace opacity. Pulmonary vascularity is normal. Heart and mediastinum: The h eart size is normal for technique. Vascular calcifications are present at the aorta. Bones: No acute bony abnormality is identified. IMPRESSION: 1. Endotracheal tube tip 4.7 cm above the primo. Gastric suction tube side- port in the region of the gastroesophageal junction. Consider advancement. 2. Left retrocardiac airspac e opacity may represent atelectasis or pneumonia/aspiration Consultation Notes No Data Provided for This Section Discharge Summaries No Data Provided for This Section History and Physicals No Data Provided for This Section Vital Signs Vital Sign Value Date Comments Source Temperature Oral (F) 97.6 F 02/08/2017 [facility] Heart Rate 76 02/08/2017 [facility] Respitory Rate 16 02/08/2017 [facility] Systolic (mm Hg) 147 02/08/2017 [facility] Diastolic (mm Hg) 74 02/08/2017 [facility] Systolic (mm Hg) 188 02/08/2017 [facility] Diastolic (mm Hg) 88 02/08/2017 [facility] Heart Rate 66 02/08/2017 [facility] Resp[facility] Rate 18 02/08/2017 [facility] Temperature Oral (F) 97.7 F 02/08/2017 [facility] Systolic (mm Hg) 148 02/08/[facility] Diastolic (mm Hg) 74 02/08/2017 [facility] Temperature Oral (F) 97.9 F 02/08/2017 [facility] Respitory Rate 18 02/08/2017 [facility] Heart Rate 62 02/08/[facility] Height 162.56 cm [facility]/30[facility] Height 162.56 cm 01/30/2017 [facility] Height 162.56 cm 01/30/2017 [facility] Weight 52.1 01/29/2017 [facility] BMI Calculated 19.72 01/29/2017 [facility] Weight 60 01/28/2017 [facility] Weight 60 01/28/2017 [facility] Encounters Location Location Encounter Encounter Reason Attending ADM DC Stat us Source Details Type Number For Provider Date Date Visit [facility] [id number] Richard 01/28 02/08 [facility] [place] /2016 [facility] [id number] [place] 05/12 05/13 [facility] /2017 [facility] Procedures Procedure Code Date Perfomer Comments Source Dental appliance [id number] Root canal & MH Chet as component<sup>1< dental bridge Medic al /sup> Center Assessment and Plan Assessment and Plan Date Source Extracted from:Title: Clinical Document 02/08/2017 [facility] Author: Serena Trejo MD Date: 02/08/17 General Neurology Progress Note Subjective: Patient denies any complaints this morning. Pending SNF plac ment HPI: History has been obtained for EMR as fam thelma members are not at bedside and patient is intubated Ms. Amarilis Manjarrez is a 76 yr old Fem eamon w/ PMH of relapsing remitting multiple sclerosis, HTN, and osteoporosis presents with seizure-like activity per family and intubated to the MICU. Per patient 's title specialist, she went to the patient's house about 1:30 pm earlier today at which time she saw the patient sitting in the chair having seizure activity. Per donn, patient had generalized tonic clonic activity with left sided he ad deviation. The title specialist states that she tried to talk to the patient but the patient was not responding and her body continued to shake. She then called 911. The title specialist states that the episode la sted about 30 minutes until EMS gave her "medications." Hospital Course: Patient initially admitted to MICU and w as intubated for status, but was able to be extubated on 01/30. She was placed on cvEEG for concern of continued seizures, however this was negative for continued epileptiform events. Currently on treat ment for UTI and pneumonia. Seizures well controlled with Keppra, and we have tapered off Dilantin. Pending SNF Medications: Medications (25) Active Scheduled Meds (12): 02/07/17 NIFEdipine (NIFEdipine 60 mg or al tablet, extended release) 60 mg PO Daily 01/29/17 atorvastatin 40 mg PO Daily 01/29/17 docusate (docusate sodium) 100 mg PO Q12H 01/29/17 heparin 5,000 unit SUB-Q Q8H 02/03/17 hydrALAZINE (hydrALAZINE 25 mg oral tablet) 50 mg P O Q8H-05 01/29/17 levETIRAcetam (Keppra) 1,500 mg [place] Q12H 01/29/17 losartan 100 mg PO Daily 02/04/17 melatonin 3 mg PO Bedtime 01/30/17 metoprolol (metoprolol tartrate) 100 mg PO Q12H 01/29/17 senna 8.6 mg PO Q12H 01/28/17 sodium chloride (BD Normal Saline Flush) 10 mL IV Q 12H 01/29/17 sodium chloride (Saline Flush 0.9%) 10 ml IVP Q12H Unscheduled Meds: None PRN Meds (13): 02/01/17 Dextrose 50% in Water IV (Dextrose 50% Syringe) 12. 5 gm IVP PRN 02/01/17 Dextrose 50% in Water IV (Dextrose 50% Syringe) 25 gm IVP PRN 02/01/17 Insulin regular 3 unit SUB-Q Sliding Scale 02/01/17 Insulin regular 6 unit SUB-Q Sliding Scale 02/01/17 Insulin regular 9 unit SUB-Q Sliding Scale 02/01/17 Insulin regular 12 unit SUB-Q Sliding Scale 02/01/17 Insulin regular 15 unit SUB-Q Sliding Scale 01/28/17 acetaminophen (Tylenol) 325 mg PO Q6H 01/28/17 chlorhexidine topical (chlorhex idine topical 0.12% liquid) 15 mL Swab Mouth PRN 02/01/17 glucagon 1 mg IM PRN 01/28/17 nystatin topical (nystatin topi magaly 100,000 units/g powder) 1 appl TOP PRN 01/28/17 sodium chloride (Saline Flush 0.9%) 10 mL IVP PRN 01/28/17 sodium chloride (Saline Flush 0.9%) 10 ml IVP PRN One Time Meds: None Continuous Infusions: None Objective: Vitals: Vitals Tmp(F) Tmp(C) Ttype B P MAP Pulse RR SpO2 FIO2 ETCO2 02/08 08:30 97.7 36.50 oral 188/88 --- 66 18 96 --- --- 02/08 04:57 97.9 36.61 oral 148/74 --- 62 18 96 --- --- 02/08 00:30 97.7 36.50 oral 131/70 --- 64 18 96 --- --- 02/07 19:56 98.0 36.67 oral 165/84 --- 69 20 97 --- --- 02/07 16:10 98.0 36.67 oral 143/76 --- 64 16 97 --- --- 24 Hr Tmax: 98.0F (36.67c) at 02/07 19:5 6 Vital Signs are the last 5 in the past 48 hours. 24 Hr Tmin: 97.7F (36.50c) at 02/08 08: 30 Weights are the last 5 in 60 days, plus initial. Date Wt(kg) Wt(lb) Ht(cm) Ht(in) Method BM I BSA 02/02 59.00 129.80 Measured 02/01 61.70 135.74 Measured 01/29 52.10 114.62 162.56 64.00 Measured 19.7 1.53 01/28 (initial) 60.00 132.00 Estimated 01/29 162.56 64.00 Estimated Most Recent Scores: 02/08/17 Pain Intensity NRS (0-10) 0 02/08/17 [place] Coma Score 14 02/08/17 [place] Score 18 02/07/17 Delc[place] Chery Fall Score 21 01/28/17 NIH Stroke Score 22 Lines, Tubes, and Drains: 02/07/2017 03:36 Peripheral Lines: Wrist Right 22 gauge Over the needle catheter Physical Exam: HEAD - Normocephalic and atraumatic LUNGS - Clear to auscultation, no rales or rhonchi CVS Rate rhythm regular, no murmur, equal pulses bilateral ly ABDOMEN - Soft, non tender, with normal bowel sounds. No hep atosplenomegaly NEUROLOGY: Alert and oriented to person and place, but not to time Speech: fluent, repetition and naming intact records management engineer: 2-12 intact Motor: Tone: Normal Power: 5/5 in all groups of muscles in all four limbs Reflexes: 2+ symmetrical bilaterally Plantar: Flexor Drift: absent Sensory: Intact light touch throughout Cerebellar signs: Intact FTN Gait:deferred Labs: no new labs Diagnostic Work Up : CT Head: IMPRESSION: 1. No acute intracranial abnormality. 2. Age related volume loss. 3. White matter hypodensity consistent w ith chronic small vessel ischemic disease. 4. Arterial atherosclerosis. 5. Large left maxillary sinus mucus retention cyst. MRI brain: No acute intracranial hemorrhage or recent large territory i schemia Advanced chronic microvascular ischemic changes in the white matter with superimposed multifocal lacunar infarcts. T2 hyperintense lesions in the cerebellum likely also represent sequela of remote insults. Diffuse cortical volume loss with ventri culomegaly. No suggestion of ventriculo- sulcal disproportion EEG: This is an abnormal EEG demonstrating the followin. mild diffuse slowing, consistent mod diffuse encephalo pattie. 2. Mild right hemispheric supression compared to the left . No electrographic seizures are seen. Continuous EEG 01/31 - 02/01: 1. Moderate to severe encephalopathy due to diffuse slowing of the background rhythm. 2. Seizure potential in the right pariet al region due to epileptiform discharges seen in this region. No seizures were captured during this re cording. Multiple push-button events did not have any EEG correlate. Assessment: 76yo with PMH of RRMSwho presented initi ally to the MICU for new onset seizures. Now s/p treatment for UTI and pneumonia and showing clinical improvement on Keppra. Pending SNF Plan: #New onset seizures -MRI brain with evidence of prior lacunar strokes but no acu te abnormality -EEG with seizure potential in right parietal lobe, but no s eizures -Continue Keppra 1500mg q12h #HTN -SBP improving -Hydralazine 50mg q8h -losartan 100mg daily -metoprolol 100mg q12h - nifedipine 60mg daily #UTI and Pneumonia -Completed course of vancomycin and cefe pime for total of 7 days (stop date 02/04) - UTI was enterocacus - Sputum was positive for Gram + cocci #Dysphagia -Failed FEES 02/03 -Passed repeat FESS 02/05 and on regular diet with thin liqu ids Bowel regimen: docusate, senna DVT ppx: subq heparin PT/OT: SNF Dispo: SNF. Medically ready for discharge Serena Trejo PGY-2 Neurology Neurology Attending The patient was seen and examined by me with the resident and I agree with the History/Exam documented. Victorino Hamm MD Extracted from:Title: Clinical Document Author: Serena Trejo MD Date: 02/07/17 General Neurology Progress Note Subjective: Patient denies any complaints this morning. Pending SNF plac ment HPI: History has been obtained for EMR as fam thelma members are not at bedside and patient is intubated MsMore Manjarrez is a 76 yr old Fem eamon w/ PMH of relapsing remitting multiple sclerosis, HTN, and osteoporosis presents with seizure-like activity per family and intubated to the MICU. Per patient 's title specialist, she went to the patient's house about 1:30 pm earlier today at which time she saw the patient sitting in the chair having seizure activity. Per donn, patient had generalized tonic clonic activity with left sided he ad deviation. The title specialist states that she tried to talk to the patient but the patient was not responding and her body continued to shake. She then called 911. The title specialist states that the episode la sted about 30 minutes until EMS gave her "medications." Hospital Course: Patient initially admitted to MICU and w as intubated for status, but was able to be extubated on 01/30. She was placed on cvEEG for concern of continued seizures, however this was negative for continued epileptiform events. Currently on treat ment for UTI and pneumonia. Seizures well controlled with Keppra, and we have tapered off Dilantin. Pending SNF Medications: Medications (25) Active Scheduled Meds (12): 02/07/17 NIFEdipine (NIFEdipine 60 mg or al tablet, extended release) 60 mg PO Daily 01/29/17 atorvastatin 40 mg PO Daily 01/29/17 docusate (docusate sodium) 100 mg PO Q12H 01/29/17 heparin 5,000 unit SUB-Q Q8H 02/03/17 hydrALAZINE (hydrALAZINE 25 mg oral tablet) 50 mg P O Q8H-05 01/29/17 levETIRAcetam (Keppra) 1,500 mg NJ Q12H 01/29/17 losartan 100 mg PO Daily 02/04/17 melatonin 3 mg PO Bedtime 01/30/17 metoprolol (metoprolol tartrate) 100 mg PO Q12H 01/29/17 senna 8.6 mg PO Q12H 01/28/17 sodium chloride (BD Normal Saline Flush) 10 mL IV Q 12H 01/29/17 sodium chloride (Saline Flush 0.9%) 10 ml IVP Q12H Unscheduled Meds: None PRN Meds (13): 02/01/17 Dextrose 50% in Water IV (Dextrose 50% Syringe) 12. 5 gm IVP PRN 02/01/17 Dextrose 50% in Water IV (Dextrose 50% Syringe) 25 gm IVP PRN 02/01/17 Insulin regular 3 unit SUB-Q Sliding Scale 02/01/17 Insulin regular 6 unit SUB-Q Sliding Scale 02/01/17 Insulin regular 9 unit SUB-Q Sliding Scale 02/01/17 Insulin regular 12 unit SUB-Q Sliding Scale 02/01/17 Insulin regular 15 unit SUB-Q Sliding Scale 01/28/17 acetaminophen (Tylenol) 325 mg PO Q6H 01/28/17 chlorhexidine topical (chlorhex idine topical 0.12% liquid) 15 mL Swab Mouth PRN 02/01/17 glucagon 1 mg IM PRN 01/28/17 nystatin topical (nystatin topi magaly 100,000 units/g powder) 1 appl TOP PRN 01/28/17 sodium chloride (Saline Flush 0.9%) 10 mL IVP PRN 01/28/17 sodium chloride (Saline Flush 0.9%) 10 ml IVP PRN One Time Meds: None Continuous Infusions: None Objective: Vitals: Vitals Tmp(F) Tmp(C) Ttype B P MAP Pulse RR SpO2 FIO2 ETCO2 02/07 12:11 97.4 36.33 oral 143/83 --- 62 16 97 --- --- 02/07 08:45 97.4 36.33 oral 163/92 --- 71 16 98 --- --- 02/07 03:22 98.8 37.11 axil 177/97 --- 60 14 95 --- --- 02/07 00:00 97.7 36.50 oral 145/72 --- 72 14 95 --- --- 02/06 20:17 97.6 36.44 oral 151/76 --- 76 18 95 --- --- 24 Hr Tmax: 98.8F (37.11c) at 02/07 03:2 2 Vital Signs are the last 5 in the past 48 hours. 24 Hr Tmin: 97.4F (36.33c) at 02/07 12: 11 Weights are the last 5 in 60 days, plus initial. Date Wt(kg) Wt(lb) Ht(cm) Ht(in) Method BM I BSA 02/02 59.00 129.80 Measured 02/01 61.70 135.74 Measured 01/29 52.10 114.62 162.56 64.00 Measured 19.7 1.53 01/28 (initial) 60.00 132.00 Estimated 01/29 162.56 64.00 Estimated 24 Hr Point of Care Glucoses 02/07 0617 Glucose POC 119 H 02/06 2134 Glucose POC 202 H 02/06 1736 Glucose POC 98 Most Recent Scores: 02/07/17 Delc[place] Chery Fall Score 13 02/07/17 Pain Intensity NRS (0-10) 0 02/07/17 [place] Coma Score 14 02/07/17 Chapin Score 16 01/28/17 NIH Stroke Score 22 Lines, Tubes, and Drains: 02/07/2017 03:36 Peripheral Lines: Wrist Right 22 gauge Over the needle catheter Physical Exam: HEAD - Normocephalic and atraumatic LUNGS - Clear to auscultation, no rales or rhonchi CVS Rate rhythm regular, no murmur, equal pulses bilateral ly ABDOMEN - Soft, non tender, with normal bowel sounds. No hep atosplenomegaly NEUROLOGY: Alert and oriented to person and place, but not to time Speech: fluent, repetition and naming intact records management engineer: 2-12 intact Motor: Tone: Normal Power: 5/5 in all groups of muscles in all four limbs Reflexes: 2+ symmetrical bilaterally Plantar: Flexor Drift: absent Sensory: Intact light touch throughout Cerebellar signs: Intact FTN Gait:deferred Labs: Labs (Last four charted values) WBC 8.3 (FEB 04) 6.9 (FEB 03) 6.6 (FEB 02) 8.6 (FEB 01) Hgb L 11.7 (JAN 10) 12.3 (FEB 03) L 11.7 (FEB 02) L 11.6 (FEB 01) Hct L 34.0 (JAN 10) L 35.9 (FEB 03) L 34.8 (FEB 02) L 33.1 (FEB 01) Plt 179 (FEB 04) 146 (FEB 03) L 126 (FEB 02) L 129 (FEB 01) Na 137 (FEB 04) 137 (FEB 03) 140 (FEB 02) 141 (FEB 01) K 4.1 (FEB 04) 4.9 (FEB 03) 4.5 (FEB 02) C 2.8 (FEB 01) CO2 L 22 (FEB 04) 25 (FEB 03) 25 (FEB 02) 26 (FEB 01) Cl 105 (FEB 04) 105 (FEB 03) 108 (FEB 02) 107 (JAN 24) Cr L 0.46 (JAN 10 7) L 0.41 (FEB 03) L 0.47 (FEB 02) 0.50 (JAN 24) BUN 22 (FEB 04) 17 (FEB 03) 16 (FEB 02) 18 (JAN 24) Glucose Random H 143 (FEB 04 ) H 170 (FEB 03) H 145 (FEB 02) H 157 (FEB 01) Mg 2.2 (FEB 03) 2.0 (FEB 02) 1.9 (JAN 24) 2.0 (JAN 31) Phos 2.6 (FEB 03) L 2.3 (FEB 02) L 1.8 (FEB 02) C 1.4 (FEB 01) Ca 8.6 (FEB 04) L 8.4 (FEB 03) L 8.2 (FEB 02) L 8.0 (FEB 01) PT 14.6 (JAN 28) INR 1.14 (JAN 28) PTT 29.4 (JAN 28) Troponin 0.11 (JAN 29) 0.18 (JAN 29) 0.15 (JAN 28) 0.02 (JAN 28) Total CK 40 (JAN 28) Diagnostic Work Up : CT Head: IMPRESSION: 1. No acute intracranial abnormality. 2. Age related volume loss. 3. White matter hypodensity consistent w ith chronic small vessel ischemic disease. 4. Arterial atherosclerosis. 5. Large left maxillary sinus mucus retention cyst. MRI brain: No acute intracranial hemorrhage or recent large territory i schemia Advanced chronic microvascular ischemic changes in the white matter with superimposed multifocal lacunar infarcts. T2 hyperintense lesions in the cerebellum likely also represent sequela of remote insults. Diffuse cortical volume loss with ventri culomegaly. No suggestion of ventriculo- sulcal disproportion EEG: This is an abnormal EEG demonstrating the followin. mild diffuse slowing, consistent mod diffuse encephalo pattie. 2. Mild right hemispheric supression compared to the left . No electrographic seizures are seen. Continuous EEG 01/31 - 02/01: 1. Moderate to severe encephalopathy due to diffuse slowing of the background rhythm. 2. Seizure potential in the right pariet al region due to epileptiform discharges seen in this region. No seizures were captured during this re cording. Multiple push-button events did not have any EEG correlate. Assessment: 76yo with PMH of RRMSwho presented initi ally to the MICU for new onset seizures. Now s/p treatment for UTI and pneumonia and showing clinical improvement on Keppra. Pending SNF Plan: #New onset seizures -MRI brain with evidence of prior lacunar strokes but no acu te abnormality -EEG with seizure potential in right parietal lobe, but no s eizures -Continue Keppra 1500mg q12h #HTN -SBP up to 140-180s -Hydralazine 50mg q8h -losartan 100mg daily -metoprolol 100mg q12h -increased nifedipine to 60mg daily this morning #UTI and Pneumonia -Completed course of vancomycin and cefe pime for total of 7 days (stop date 02/04) #Dysphagia -Failed FEES 02/03 -Passed repeat FESS 02/05 and on regualr diet with thin liqu ids Bowel regimen: docusate, senna DVT ppx: subq heparin PT/OT: SNF Dispo: SNF. Medically ready for discharge Serena Trejo PGY-2 Neurology Neurology Attending The patient was seen and examined by me with the resident and I agree with the History/Exam documented. Victorino Hamm MD Extracted from:Title: [place] Pulmonary Critical Care Author: Richard Gardner MD Date: 01/29/17 [facility] Pulmonary and Critical Care Medicine Attending Teaching Attestation and Critical Care Progress Note I saw, evaluated, and participated in th e care of the patient with the resident physician Dr. Ro Escamilla on the date of this note. I concur with the assessment and plan in their note dated 017. I have extensively reviewed the maral klein's available history, information, labs and imaging. My appropriate corrections, additions, and emphasized points if appropriate are below. CCT was 55 min excluding procedures Critical care mgmt of acute resp failure on mechanical ventilation due to seizure activity and airway protection : IHI vent bundle : pt is DNR per family and has directives Multiple sclerosis s/p LP : Neuro recs appreciated : continue Keppra and EEG and complete workup HTN Bilateral R>L GGO concern, abnormal CT chest, neg for PE : DDx of NSIP as pt is on chronic Ni trofurantoin; this medication can cause ILD DNR code status Plan of Care No Data Provided for This Section Social History Social History Date Source Social History TypeResponse 01/28/2017 [facility] Smoking Status Unknown if ever smoked; 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
--- OUTSIDE RECORDS SUMMARY | 2019-09-08 09:02 | XMS REPORT ---
:1940 Author Organization [facility] t Address [address] [place] [address] Care Team Providers Name Role Phone Chuy Mathur Attending Clinician Kaz Hamm Attending Clinician Kendra Admitting Clinician Problems Condition Condition Condition Status Onset Resolution Last Treating Co mments Source Name Details Category Date Date Treatment Clinician Date G40.219 Diagnosis Active 2017-05-13 04-11 08:45:00 [place] G40.219 00:00: Medical 00 Center Active 04/11/2017 [facility] JES Diagnosis Active 2016-042017-05-13 BILLING 0-20 08:45:00 [place] 00:00: Medical JES 00 Center BILLING Active 01/28/2017 [facility] CVA Diagnosis Active 2016-042017-01-28 0-20 16:03:00 [place] CVA 00:00: Medical 00 Center Active 01/28/2017 [facility] AMS, CVA Diagnosis Active 2016-042017-05-13 M H 0-20 08:45:00 [place] AMS, CVA 00:00: Medica l 00 Center Active 01/28/2017 [facility] Asthenia Problem Active 2017-08-18 (finding) - 17:52:01 [place] Asthenia 00:00: Medica l (finding) 00 Center Active 11/06/2009 Problem 08/18/2017 [facility] Anxiety Anxiety Problem Active [facility] Other Other Problem Active [facility] osteoporos osteoporos Rina k[facility] - [facility] At risk At risk Problem Active [facility] Prediabete Prediabete Problem Active [facility] 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 [facility]ics Osteoporos Osteoporos Problem Active [facility] is, is, [facility] - unspecifie unspecifie Me moria d d l osteoporos osteoporos Ou tpati is type, is type, ent unspecifie unspecifie Cl inics d d pathologic pathologic al al fracture fracture presence presence Diarrhea, Diarrhea, Problem Active [facility] unspecifie unspecifie Rina kes - d type d type [facility] Hyperlipid Hyperlipid Problem Active [facility] emia, emia, [facility] - unspecifie unspecifie Me moria d d l hyperlipid hyperlipid Ou tpati emia type emia type ent Clinics Urinary Urinary Problem Active [facility] tract tract [facility] - infection infection Ramon dony without without l hematuria, hematuria, Ou tpati site site ent unspecifie unspecifie Cl inics d d Generalize Generalize Problem Active [facility] d weakness d weakness Rina kes - [facility] Benign Benign Problem Active [facility] essential essential [facility] - HTN HTN [facility] Hyperglyce Hyperglyce Problem Active [facility] giovanny giovanny [facility] 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, syndrome, Luke [facility] - unspecifie unspecifie Me moria d d l [facility] Loss of Loss of Problem Active [facility] appetite appetite [facility] Weight Weight Problem Active [facility] loss loss [facility]ics Hypokalemi Hypokalemi Problem Active [facility] Constipati Constipati Problem Active [facility] on, on, [facility] - unspecifie unspecifie Me moria d d l constipati constipati Ou tpati on type on type ent Clinics Abnormal Abnormal Diagnosis Active [facility] urine odor urine odor Rina kes - [facility] Hypertensi Problem Resolve 2017-08-18 ve d 17:52:01 [place] disorder, Medical systemic Hypertensi Cent er arterial ve (disorder) disorder, systemic arterial (disorder) Resolved Problem 08/18/2017 [facility] Multiple Problem Resolve 2017-08-18 sclerosis d 17:52:01 [place] (disorder) Multiple Me dical sclerosis Center (disorder) Resolved Problem 08/18/2017 [facility] ALTERED Diagnosis Active 2017-05-13 MENTAL 08:45:00 [place] STATUS, ALTERED Medica l UNSPECIFIE MENTAL Center D STATUS, UNSPECIFIE D Active [facility] LOCAL-REL Diagnosis Active 2017-05-13 SY[place] EPI 08:45:00 [place] W CMPLX Medical PART SEIZ, LOCAL-REL Bj ter SYMPTC EPI W CMPLX PART SEIZ, Active [facility] Localizati Problem 2017-08-18 2017-08-18 on-related 05-17 17:52:01 [place]52:01 [place] (focal[place] 04:16: Medical (partial) Localizati [address] 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, with intractabl complex e, without partial status seizures, epilepticu intractabl s e, without status epilepticu s 05/17/2017 08/18/2017 [facility] Allergies, Adverse Reactions, Alerts Allergy Allergy Status Severity Reaction(s) Onset Inactive Treating Comm ents Source Name Type Date Date Clinician PCN Adverse Active Info Not [facility] Reaction Available [facility] penicill penicill Active Memori [facility] ins ins l [facility] sulfa sulfa Active [facility] drugs drugs [facility] Social History Smoking Status Start Date Stop Date Source Social History [facility] Medications Ordered Filled Start Stop Current Ordering Indication Dosage Frequency Signature Comments Components Source Medication Medication Date Date Medication? Clinician (SIG) Name Name Oxybutynin Oxybutynin 2020- No Susan [address] Chloride ER Chloride ER 5 06- Millender [facility] 00:00: 00:00 [facility] 00 :[facility] hydrALAZINE 2016-04 Yes PO, MH 50 mg oral 0-30 Q8H-05, 0 [place] tablet 16:29: Refill(s) Medica l 00 [facility] levETIRAcet 2016-04 Yes 1,500 mg = MH am 100 0-30 15 mL, [place], [place] mg/mL oral 16:29: Q12H, 0 Medi magaly solution 00 Refill(s) [facility] NIFEdipine 2016-04 Yes PO, Daily, M H 60 mg oral 0-30 0 [place] tablet, 16:29: Refill(s) Medic al extended 00 Center release melatonin 3 2016-04 Yes 3 mg, PO, M H mg oral 0-30 Bedtime, 0 [place] tablet 16:29: Refill(s) Medica l 00 Center NIFEdipine 2016-04 No Notes: MH 60 mg oral 0-30 (Same as: [place] tablet, 14:00: Adalat CC, Medi magaly extended 00 Procardia Center release XL) Give on empty stomach. Take 1 hour before or 2 hours after meal; "Avoid grapefruit and grapefruit juice". Do not crush NIFEdipine 2016-04 No Notes: MH 30 mg oral 0-29 (Same as: [place] tablet, 14:00: Adalat CC, Medi magaly extended 00 Procardia Center release XL) Give on empty stomach. Take 1 hour before or 2 hours after meal; "Avoid grapefruit and grapefruit juice". melatonin 2016-04 No Notes: MH 0-28 (Same as: [place] 02:00: Melatonin) Medical 00 Center Dilantin 2016-04 No Notes: MH 0-27 (Same as: [place] 14:00: Dilantin) [facility] 00 Rinse Center packet/syr mika with water "Caution of interactio n with continuous NG feedings: Withhold administra tion of nutritiona l supplement s for 1-2 hours before and after phenytoin dose". Dilantin 2016-04 No Notes: MH 0-27 (Same as: [place] 02:00: Dilantin) [facility] 00 Rinse Center packet/syr mika with water "Caution of interactio n with continuous NG feedings: Withhold administra tion of nutritiona l supplement s for 1-2 hours before and after phenytoin dose". hydrALAZINE 2016-04 No Notes: MH 25 mg oral 0-26 (Same as: [place] tablet 13:00: Apresoline Medic al 00 ) May Center interfere w/enteral feedings Take With Food lisinopril 2016-04 No Notes: MH 0-26 (Same as: [place] 02:40: Prinivil, [facility] 00 Zestril) Center Dilantin 2016-04 No Notes: MH 0-25 (Same as: [place] 21:00: Dilantin) [facility] 00 Rinse Center packet/syr mika with water "Caution of interactio n with continuous NG feedings: Withhold administra tion of nutritiona l supplement s for 1-2 hours before and after phenytoin dose". hydrALAZINE 2016-04 No Notes: MH 25 mg oral 0-25 (Same as: [place] tablet 14:00: Apresoline Medic al 00 ) May Center interfere w/enteral feedings Take With Food. hydrALAZINE 2016-04 No Notes: MH 25 mg oral 0-25 (Same as: [place] tablet 11:36: Apresoline Medic al 00 ) May Center interfere w/enteral feedings Take With Food. Insulin 2016-04 No 60 MH regular 0-24 units) [place] 22:19: WASTE: F/P Medical 00 - Black; E Center - Municipal Trash Bin Stable for 28 days at room temperatur e Expires in days from ____Date Dextrose 2016-04 No 12.5 gm, MH 50% Syringe 0-24 25 mL, [place] 22:19: Route: Medical 00 IVP, Drug Center Form: INJ, Dosing Weight 52.1, kg, PRN, PRN Blood Glucose Results, Start date: 02/01/17 17:19:00 CDT, Duration: 30 day, Stop date: 03/03/17 16:18:00 TACK COVERER glucagon 2016-04 No 1 mg, MH 0-24 Route: IM, [place] 22:19: Drug form: Medical 00 PDR/INJ, Center PRN, Dosing Weight 52.1, kg, PRN Blood Glucose Results, Start date: 02/01/17 17:19:00 CDT, Duration: 30 day, Stop date: 03/03/17 16:18:00 TACK COVERER NIFEdipine 2016-04 No Notes: MH 30 mg oral 0-24 (Same as: [place] tablet, 14:00: Adalat CC, Medi magaly extended 00 Procardia Center release XL) Give on empty stomach. Take 1 hour before or 2 hours after meal; "Avoid grapefruit and grapefruit juice". Do not crush NIFEdipine 2016-04 No Notes: MH 30 mg oral 0-23 (Same as: [place] tablet, 21:07: Adalat CC, Medi magaly extended 00 Procardia Center release XL) Give on empty stomach. Take 1 hour before or 2 hours after meal; "Avoid grapefruit and grapefruit juice". Do not crush Dilantin 2016-04 No Notes: MH 0-23 (Same as: [place] 16:23: Dilantin) Medical 00 Do not Center infuse greater than 50 mg/min. MEDICATION WASTE Product Size: 100 mg Product Wasted: ___ mg Ativan 2016-04 No 2 mg, 0-23 Route: IV, [place] 16:10: ONCE, Medical 00 Dosing Center Weight 52.1, kg, Start date: 01/31/17 11:10:00 CDT, Stop date: 01/31/17 11:10:00 CDT Dilantin + 2016-04 No Notes: sodium 0-22 (Same as: [place] chloride 21:00: Dilantin) Medi magaly 0.9% INJ 00 Do not Center 100 mL infuse greater than 50 mg/min. MEDICATION WASTE Product Size: 100 mg Product Wasted: _0__ mg vancomycin 2016-04 No 2000 mg: MH + sodium 0-22 infuse [place] chloride 20:00: over 2.5 Medic al 0.9% 250 mL 00 hours Center INJ (for IV set) 250 mL MEDICATION WASTE Product Size: 1000 mg Product Wasted: 250___ mg Dilantin 2016-04 No 1 gm, 0-22 Route: IV, [place] 19:36: ONCE, Medical 00 Dosing Center Weight 52.1, kg, Priority: NOW, Start date: 01/30/17 14:36:00 CDT, Stop date: 01/30/17 14:36:00 CDT metoprolol 2016-04 No Notes: tartrate 0-22 (Same as: [place] 15:11: Lopressor) Medical 00 Center fentaNYL 2016-04 No Notes: MH 0-22 (Same as: [place] 14:08: Sublimaze) Medical 00 Preservat Center camille free. vancomycin 2016-04 No 2000 mg: MH + sodium 0-22 infuse [place] chloride 10:30: over 2.5 Medic al 0.9% 250 mL 00 hours Center INJ (for IV set) 250 mL MEDICATION WASTE Product Size: 1000 mg Product Wasted: ___ mg fentaNYL 2016-04 No 25 MH 0-22 microgram, [place] 09:56: Route: IV, Medical 00 ONCE, Center Dosing Weight 52.1, kg, Start date: 01/30/17 4:56:00 CDT, Stop date: 01/30/17 4:56:00 CDT fentaNYL 2016-04 No 25 MH 0-22 microgram, [place] 03:21: Route: IV, Medical 00 ONCE, Center Dosing Weight 52.1, kg, Start date: 01/29/17 22:21:00 CDT, Stop date: 01/29/17 22:21:00 CDT Dextrose 2016-04 No 12.5 gm, 50% Syringe 0-22 25 mL, [place] 02:54: Route: Medical 00 IVP, Drug Center Form: INJ, Dosing Weight 52.1, kg, PRN, PRN Blood Glucose Results, Start date: 01/29/17 21:54:00 CDT, Duration: 30 day, Stop date: 02/28/17 20:53:00 TACK COVERER glucagon 2016-04 No 1 mg, 0-22 Route: IM, [place] 02:54: Drug form: Medical 00 PDR/INJ, Center PRN, Dosing Weight 52.1, kg, PRN Blood Glucose Results, Start date: 01/29/17 21:54:00 CDT, Duration: 30 day, Stop date: 02/28/17 20:53:00 TACK COVERER insulin 2016-04 No 60 lispro 0-22 units) [place] 02:54: WASTE: F/P Medical 00 - Black; E Center - Municipal Trash Bin Stable for 28 days at room temperatur e. Expires in days from ____Date docusate 2016-04 No Notes: sodium 0-22 (Same as: [place] 02:16: Colace) Medical 00 Center Lactated 2016-04 No 500 mL, Ringers 0-22 500 ml/hr, [place] (Bolus) IV 00:48: Infuse Medic al 00 Over: 1 Center hr, Route: IV, 500, Drug form: INJ, ONCE, Priority: STAT, Dosing Weight 52.1 kg, Start date: 01/29/17 19:48:00 CDT, Duration: 1 doses or times, Stop date: 01/29/17 19:48:00 CDT Azithromyci 2016-04 No Notes: n 3 Day 0-21 Take 1 [place] Dose Pack 14:00: hour Medical 500 mg oral [address] tablet 2 hours after meals. (Same As: Zithromax) Saline 2016-04 No Notes: Flush 0.9% 0-21 (Same as: [place] 14:00: BD Medical 00 Posiflush) Center docusate 2016-04 No Notes: 0- (Same as: [place] 14:00: Colace) Medical 00 (Do Not Center Crush) senna 2016-04 No Notes: 0- (Same as: [place] 14:00: Senokot) Medical 00 Center famotidine 2016-04 No Notes: 0- (Same as: [place] 14:00: Pepcid) Medical 00 Can be Center dilute in 5-10cc NS IVP: Slow IV push over at least 2 minutes. losartan 2016-04 No Notes: 0- (Same as: [place] 14:00: Cozaar) Medical 00 Center atorvastati 2016-04 No Notes: n 0-21 (Same as: [place] 14:00: Lipitor) Medical 00 Center heparin 2016-04 No 5,000 0- unit, [place] 13:00: Route: Medical 00 SUB-Q, Center Q8H, Dosing Weight 52.1, kg, Start date: 01/29/17 8:00:00 CDT, Duration: 30 day, Stop date: 02/28/17 0:00:00 TACK COVERER heparin 2016-04 No Notes: 0- porcine [place] 12:37: heparin Medical 00 [facility] Azithromyci 2016-04 No Notes: n 3 Day 0- Take 1 [place] Dose Pack 11:14: hour Medical 500 mg oral [address] tablet 2 hours after meals. (Same As: Zithromax) calcium 2016-04 No Notes: carbonate 0- (Same As: [place] 500 mg (200 11:12: Tums) Medic al mg 00 Calcium Center elemental Carbonate calcium) 500 mg = oral tablet 200 mg elemental calcium Dose = mg calcium carbonate ( mg elemental calcium) calcium 2016-04 No Notes: gluconate + 0 WASTE: F/P [place] sodium 11:12: - Sink; E Medica l chloride 00 - Center 0.9% INJ 50 Municipal mL Trash Bin sodium 2016-04 No 30 mmol, phosphate + 0-21 10 mL, [place] sodium 11:12: Route: Medical chloride 00 IVPB, PRN, Cente r 0.9% INJ Dosing 250 mL Weight 52.1, kg, PRN Abnormal Lab Result, Start date: 01/29/17 6:12:00 CDT, Duration: 30 day, Stop date: 02/28/17 5:11:00 TACK COVERER, FOR ICU USE ONLY potassium 2016-04 No Notes: chloride 0-21 (Same as: [place] 11:12: Potassium Medical 00 Chloride) Center potassium 2016-04 No Notes: phosphate + 0-21 (Same as: [place] as sodium 11:12: K Medical chloride 00 Phosphate. Cente r 0.9% INJ ) 1 mMol 250 mL phoshate has 1.47 mEq potassium Infuse over 4 hours magnesium 2016-04 No Notes: oxide 0-21 (Same as: [place] 11:12: Mag-Ox Medical 00 400) Center Magnesium oxide [id number] g elemental magnesium Dose=____m g magnesium oxide (___mg elemental magnesium) potassium 2016-04 No Notes: phosphate-s 0-21 (Same as: [place] odium 11:12: Phos-NaK) Medical phosphate 00 Each 1.5 Center 250 mg-280 gm pkt has mg-160 mg 250mg oral powder phosphorou for s. Mix reconstitut w/2.5oz ion water and stir. magnesium 2016-04 No Notes: sulfate 0-21 WASTE: F/P [place] 11:12: - Sink; E Medical 00 - Center Municipal Trash Bin Lactated 2016-04 No 1,000 mL, Ringers 0-21 1,000 [place] (Bolus) IV 11:09: ml/hr, Medic al 00 Infuse Center Over: 1 hr, Route: IV, 1,000, Drug form: INJ, ONCE, Priority: STAT, Dosing Weight 52.1 kg, Start date: 01/29/17 6:09:00 CDT, Duration: 1 doses or times, Stop date: 01/29/17 6:09:00 CDT vancomycin 2016-04 No 2000 mg: + sodium 0-21 infuse [place] chloride 10:35: over 2.5 Medic al 0.9% 250 mL 00 hours Center INJ (for IV set) 250 mL MEDICATION WASTE Product Size: 1000 mg Product Wasted: ___ mg Plegridy 2016-04 Yes 125 MH 0-21 microgram, [place] 10:29: SUB-Q, Medical 00 Q14D, 0 [facility] Refill(s) risedronate 2016-04 Yes 150 mg = 1 MH 150 mg oral 0-21 tab, PO, [place] tablet 10:29: qMonth Medical 00 [facility] losartan 2016-04 Yes 100 mg = 1 MH 100 mg oral 0-21 tab, PO, [place] tablet 10:29: Daily, 0 Medical 00 Refill(s) [facility] atorvastati 2016-04 Yes 40 mg = 1 M H n 40 mg 0-21 tab, PO, [place] oral tablet 10:29: Daily, 0 Me dical 00 Refill(s) [facility] oxybutynin 2016-04 Yes 50 mg, PO, M H 0-21 Daily, 0 [place] 10:29: Refill(s) Medical 00 [facility] nitroprussi 2016-04 No 50 mg, PO, MH de 0-21 ONCE, 0 [place] 10:29: Refill(s) Medical 00 [facility] metoprolol 2016-04 Yes 100 mg = 1 M H tartrate 0-21 tab, PO, [place] 100 mg oral 10:29: BID, 0 Medi magaly tablet 00 Refill(s) [facility] fentaNYL 2016-04 No 25 MH 0-21 microgram, [place] 09:11: Route: IV, Medical 00 ONCE, Center Dosing Weight 52.1, kg, Start date: 01/29/17 4:11:00 CDT, Stop date: 01/29/17 4:11:00 CDT cefepime 2016-04 No Notes: MH 0-21 (Same As: [place] 09:04: Maxipime) Medical 00 Center MEDICATION WASTE Product Size: 1000 mg Product Wasted: ___ mg Keppra 2016-04 No Notes: MH 0-21 (Same [place] 08:34: as:Keppra) Medical 00 [facility] Visipaque 2016-04 No 100 mL, MH 320mg/ml 021 Route: [place] 07:54: IVP, Drug Medical 00 Form: [facility] SOLN, Dosing Weight 52.1, kg, ONCALL, STAT, Start date: 01/29/17 2:54:00 CDT, Duration: 1 doses or times, Dose = 2.2ml/kg, Max dose = 100ml -- "To be infused by Radiology Staff ONLY" ocular 2016-04 No Notes: lubricant 0-21 (Same as: [place] 05:00: Aquasite) Medical 00 [facility] Lactated 2016-04 No 1,000 mL, Ringers 0-21 1,000 [place] (Bolus) IV 04:55: ml/hr, Medic al 00 Infuse Center Over: 1 hr, Route: IV, 1,000, Drug form: INJ, ONCE, Priority: STAT, Dosing Weight 60 kg, Start date: 01/28/17 23:55:00 CDT, Duration: 1 doses or times, Stop date: 01/28/17 23:55:00 CDT Tylenol 2016-04 No Notes: Do 0-21 not exceed [place] 03:05: 4 gm/day. Medical 00 (Same as: [facility] Tylenol) Saline 2016-04 No Notes: Flush 0.9% 0-21 (Same as: [place] 02:19: BD Medical 00 Posiflush) [facility] nystatin 2016-04 No Notes: topical 0-21 (Same [place] 100,000 02:19: as:Mycosta Medi magaly units/g 00 tin, [facility] powder Nilstat) For external use only. BD Normal 2016-04 No Notes: Saline 0-21 (Same as: [place] Flush 02:00: BD Medical 00 Posiflush) [facility] chlorhexidi 2016-04 No Notes: ne topical 0-21 (Same As: [place] 0.12% 02:00: Peridex) Medical liquid 00 [facility] chlorhexidi 2016-04 No Notes: ne topical 0-21 (Same As: [place] 0.12% 01:24: Peridex) Medical liquid 00 [facility] labetalol 2016-04 No 10 mg, 0-21 Route: IV, [place] 01:21: ONCE, Medical 00 Dosing Center Weight 60, kg, Start date: 01/28/17 20:21:00 CDT, Stop date: 01/28/17 20:21:00 CDT cefepime 2016-04 No 1 gm, 0-20 Route: [place] 21:53: IVPB, Medical 00 ONCE, Center Dosing Weight 60, kg, Priority: STAT, Start date: 01/28/17 16:53:00 CDT, Duration: 1 doses or times, Stop date: 01/28/17 16:53:00 CDT, ABX Indication : Pneumonia vancomycin 2016-04 No 2000 mg: MH 0-20 infuse [place] 21:53: over 2.5 Medical 00 hours Center MEDICATION WASTE Product Size: 1000 mg Product Wasted: ___ mg propofol 2016-04 No Notes: If MH INJ 1,000 0-20 Diprivan - [place] mg 21:51: change Medical 00 bottle & Center tubing every 12 hr Per state nursing law propofol can only be given by a nurse if patient is intubated or being intubated (unless the nurse is a GIFTED TEACHER). Same as: Diprivan propofol 2016-04 No 500 mg, 50 MH 500 mg 0-20 mL, Rate: [place] 21:14: Titrate, [facility] 00 Start Center Dose: 5 microgram/ kg/min, Titration: 5 microgram/ kg/min every 15 min, Goal(s): MAP 65-85, Max Dose: 50 microgram/ kg/min, Route: IV, Dosing Weight 60 kg, Total Volume: 50, Start date: 01/28/17 16:14:00 CDT, Duration:. .. fentaNYL 2016-04 No 65, Max 1000microgr 0-20 Dose: 300 [place] am/20ml 20:07: microgram/ Medi magaly drip 00 hr, Route: Center (pyxis) IV, Total 1,000 Volume: microgram 20, Start date: 01/28/17 15:07:00 CDT, Duration: 30 day, Stop date... midazolam 2016-04 No Notes: 50mg/ NS 0-20 (Same as: [place] 50ml drip 20:07: Versed) Medic al (premixed) 00 Center 50 mg Saline 2016-04 No Notes: Flush 0.9% 0-20 (Same as: [place] 20:04: BD Medical 00 Posiflush) Center Vitamin Vitamin Yes Susan [address] [facility] B-12 B-[address] [facility] D-Mannose D-Mannose Yes Susan 1000 mg>>[address] [facility] Millender tablet [facility] Citracal Citracal Yes Ssuan not [facility] +D3 +D3 [facility] defined [facility] Cranberry Cranberry Yes Susan not [facility] Millender defined [facility] Citracal Citracal Yes Susan not [facility] Calcium Calcium Millender defined [facility] - Gummies Gummies [facility] Topiramate Topiramate Yes Susan [address] [facility] Millender [facility] HydrALAZINE HydrALAZINE Yes Susan [address] [facility] HCl HCl Millender with food [facility] Docusate Docusate Yes Susan [address] Sodium Sodium Millender as needed [facility] Aptiom Aptiom Yes Susan [address] [facility] Millender [facility] Atorvastati Atorvastati Yes Susan [address] [facility] n Calcium n Calcium Millender [facility] Losartan Losartan Yes Susan [address] Potassium Potassium Millender [facility] Metoprolol Metoprolol Yes Susan [address] [facility] Tartrate Tartrate Millender with food [facility] Risedronate Risedronate 2020- No Susan [address] [facility] [facility] Sodium Sodium 06-29 Millender [facility] - 00:00 [facility] :00 l Outpati ent Clinics Vital Signs Vital Name Observation Time Observation Value Comments Source Temperature Oral (F) 2017-02-08 17:00:00 97.6 F [facility] Heart Rate 2017-02-08 17:00:00 [facility] Respitory Rate 2017-02-08 17:00:00 [facility] Systolic (mm Hg) 2017-02-08 17:00:00 [facility] Diastolic (mm Hg) 2017-02-08 17:00:00 [facility] Systolic (mm Hg) 2017-02-08 13:30:00 [facility] Diastolic (mm Hg) 2017-02-08 13:30:00 [facility] Heart Rate 2017-02-08 13:30:00 [facility] Respitory Rate 2017-02-08 13:30:00 [facility] Temperature Oral (F) 2017-02-08 13:30:00 97.7 F [facility] Systolic (mm Hg) 2017-02-08 09:57:00 [facility] Diastolic (mm Hg) 2017-02-08 09:57:00 [facility] Temperature Oral (F) 2017-02-08 09:57:00 97.9 F [facility] Respitory Rate 2017-02-08 09:57:00 [facility] Heart Rate 2017-02-08 09:57:00 [facility] Height 2017-01-30 12:37:00 162.56 cm [facility] Height 2017-01-30 08:59:00 162.56 cm [facility] Height 2017-01-30 03:17:00 162.56 cm [facility] Weight 2017-01-29 05:36:00 [facility] BMI Calculated 2017-01-29 05:36:00 [facility] Weight 2017-01-28 22:10:00 [facility] Weight 2017-01-28 21:23:00 [facility] Procedures Procedure Date / Time Performed Performing Clinician Sourc e Dental appliance [facility] component<sup>1</sup> Center Encounters Start End Encounter Admission Attending Care Care Encounter Source Date/Time Date/Time Type Type Clinicians Facility Department ID 2019-04-18 2019-04-18 Outpatient Arvind Mendes [id number] [facility] 10:00:00 10:00:00 t [facility] Family Medicine Medicine Outpati ent Clinics 2019-04-13 2019-04-13 Outpatient Arvind Mendes [id number] [facility] 09:45:00 09:45:00 t [facility] Family [facility] l Medicine Outpati ent Clinics 2019-02-08 2019-02-08 Outpatient Arvind Mendes [id number] [facility] 09:36:00 09:36:00 t [facility] l Outpati ent Clinics 2019-01-24 2019-01-24 Outpatient Arvind Mendes [id number] [facility] 11:40:00 11:40:00 t [facility] Family Medicine l Medicine Outpati ent Clinics 2019-01-11 2019-01-11 [facility] [id number] 10:20:00 10:20:00 t [facility] Medicine Medicine Outpati ent Clinics 2018-10-23 2018-10-23 [facility] [id number] 10:00:00 10:00:00 t [facility] Medicine Outpati ent Clinics 2018-10-18 2018-10-18 [facility] [id number] 09:40:00 09:40:00 t [facility] Medicine Medicine Outpati ent Clinics 2018-08-25 2018-08-25 [facility] [id number] [address] 11:00:00 11:00:00 t [facility] Medicine Outpati ent Clinics 2018-08-11 2018-08-11 [facility] [id number] [facility] 00:31:00 00:31:00 t [facility] Medicine Medicine Outpati ent Clinics 2018-08-07 2018-08-07 [facility] [id number] 11:22:00 11:22:00 t [facility] Medicine Outpati ent Clinics 2018-07-21 2018-07-21 [facility] [id number] 10:34:00 10:34:00 t [facility] Medicine Medicine Outpati ent Clinics 2018-07-16 2018-07-16 [facility] [id number] 09:04:00 09:04:00 [facility] Outpati ent Clinics 2018-07-14 2018-07-14 [facility] [id number] [address] 17:22:00 17:22:00 [facility] l Outpati ent Clinics 2018-07-14 2018-07-14 [facility] [id number] 16:07:00 16:07:00 [facility] l Outpati ent Clinics 2018-07-14 2018-07-14 [facility] [id number] 14:15:00 14:15:00 t Urgent [facility] - [facility] l Outpati ent Clinics 2018-07-14 2018-07-14 [facility] [id number] [facility] 10:32:00 10:32:00 t [facility] Medicine Medicine Outpati ent Clinics 2018-07-12 2018-07-12 [facility] [id number] [facility] 16:40:00 16:40:00 t [facility] Medicine Outpati ent Clinics 2018-06-08 2018-06-08 [facility] [id number] [address] 12:19:00 12:19:00 t [facility] Medicine Outpati ent Clinics 2018-04-13 2018-04-13 [facility] [id number] 21:00:00 21:00:00 t [facility] Medicine Medicine Outpati ent Clinics 2018-04-13 2018-04-13 [facility] [id number] 09:00:00 09:00:00 t [facility] Medicine Outpati ent Clinics 2018-04-12 2018-04-12 [facility] [id number] [address] 09:10:00 09:10:00 t [facility] Medicine Medicine Outpati ent Clinics 2018-01-13 2018-01-13 [facility] [id number] [facility] 01:01:00 01:01:00 t [facility] Medicine Medicine Outpati ent Clinics 2018-01-12 2018-01-12 [facility] [id number] 10:30:00 10:30:00 [facility] Medicine Outpati ent Clinics 2017-12-30 2017-12-30 [facility] [id number] [facility] 08:47:00 08:47:00 t [facility] [address] [facility] Medicine Medicine Outpati ent Clinics 2017-12-05 2017-12-05 [facility] [id number] 16:26:00 16:26:00 t [facility] [address] [facility] Medicine Medicine Outpati ent Clinics 2017-11-24 2017-11-24 [facility] [id number] 08:39:00 08:39:00 t [facility] Medicine l Medicine Outpati ent Clinics 2017-11-02 2017-11-02 [facility] [id number] 11:11:00 11:11:00 t [facility] Medicine Medicine Outpati ent Clinics 2017-09-29 2017-09-29 [facility] [id number] [facility] 10:29:00 10:29:00 t [facility] Medicine Medicine Outpati ent Clinics 2017-09-27 2017-09-27 [facility] [id number] 11:22:00 11:22:00 t [facility] Medicine Medicine Outpati ent Clinics 2017-09-02 2017-09-02 [facility] [id number] 14:00:00 14:00:00 [facility] Medicine Medicine Outpati ent Clinics 2017-05-12 2017-05-13 Outpatient [facility] [id number] 16:11:00 05:59:00 [place] 00 [facility] 2017-05-12 2017-05-12 Outpatient [facility], [facility] [id number] 10:11:00 23:59:00 [place] 00 [place] 2017-05-12 2017-05-12 Outpatient [facility], [facility] [id number] 10:11:00 23:59:00 [place] 00 [place] 2017-01-28 2017-02-08 Inpatient [facility] [id number] MH 19:55:00 20:02:00 [place] [facility] 2017-01-28 2017-02-08 Outpatient Smart, [facility] [id number] 14:55:00 15:02:00 [place] 67 [place] Results Test Description Test Time Test Comments Results Result Comments Source CHEM PANEL 2017-02-04 99 [facility] 08:15:00 [facility] CHEM PANEL 2017-02-04 22 [facility] 08[facility]15:00 Center CHEM PANEL 2017-02-04 105 [facility] 08:15:00 Center CHEM PANEL 2017-02-04 8.6 [facility] 08:15:00 Center CHEM PANEL 2017-02-04 143 [facility] 08:15:00 Center CHEM PANEL 2017-02-04 137 [facility] 08:15:00 Center CHEM PANEL 2017-02-04 4.1 [facility] 08:15:00 Center CHEM PANEL 2017-02-04 0.46 [facility] 08:15:00 Center CHEM PANEL 2017-02-04 22 [facility] 08:15:00 Center CHEM PANEL 2017-02-04 14.1 [facility] 08:15:00 [facility] HEMATOLOG[facility] 2017-02-04 0.1 [facility] 08:15:00 [facility] HEMATOLOG[facility] 2017-02-04 1.0 [facility] 08:15:00 [facility] HEMATOLOGY 2017-02-04 5.2 [facility] 08:15:00 [facility] HEMATOLOGY 2017-02-04 1.6 [facility] 08:15:00 [facility] HEMATOLOGY 2017-02-04 1.2 [facility] 08:15:00 [facility] HEMATOLOGY 2017-02-04 0.2 [facility] 08:15:00 [facility] HEMATOLOGY 2017-02-04 2.7 [facility] 08:15:00 [facility] HEMATOLOGY 2017-02-04 14.1 [facility] 08:15:00 [facility] HEMATOLOGY 2017-02-04 19.5 [facility] 08:15:00 [facility] HEMATOLOGY 2017-02-04 62.7 [facility] 08:15:00 [facility] HEMATOLOGY 2017-02-04 13.3 [facility] 08[facility]15:00 [facility] HEMATOLOGY 2017-02-04 179 [facility] 08:15:00 [facility] HEMATOLOGY 2017-02-04 9.9 [facility] 08:15:00 [facility] HEMATOLOGY 2017-02-04 34.3 [facility] 08:15:00 [facility] HEMATOLOGY 2017-02-04 11.7 [facility] 08:15:00 [facility] HEMATOLOGY 2017-02-04 34.0 [facility] 08:15:00 [facility] HEMATOLOGY 2017-02-04 90.1 [facility] 08:15:00 [facility] HEMATOLOGY 2017-02-04 08:15:00 Test Item Value Reference Range Interpretation Comme nts MCH (test code = MCH) 30.9 pg 27.0-31.0 [facility] CampusNplhlhTROTGDAOVI8402-64-72 08:15:008.[address] [place] [address] ZLUIBSAXSG3861-56-43 08:15:003.78[facility] CampusCHEM XCXVB0223-85-13 08:34:002.[address] [place], [place] [address]CHEM LWRKA8836-57-17 08:34:25714OYThe [facility] CampusCHEM YOPKT2621-93-19 08:34:008.4[facility] CampusCHEM PANEL 2017-02-03 08:34:0025[facility] CampusCHEM VCPPH8150-40-74 08:34:47568VBThe [facility] CampusCHEM UBKYG4813-41-07 08:34:0017[facility] CampusCHEM SVMJE8509-98-09 08:34:11791YQThe [facility]als of [facility] CampusCHEM YDGVA7611-49-16 08:34:00 0.41[facility] CampusCHEM IRTLD4118-95-23 08:34:44167ZMThe Hospitals of [facility] CampusCHEM GPDMJ6889-19-70 08:34:004.9[facility] CampusCHEM PANEL 2017-02-03 08:34:0011.9[facility] CampusCHEM YIAFK7003-14-10 08:34:002[address] [place], [place] [address]CHEM VIEBR0160-80-86 08:34:000.31[facility] WMIJOBCYUF8217-31-52 08:34:0012.[address] [place], [place] [address]IgdvjvRIEQVQUQUV9411-15-46 08:34:0035.9[facility] CampusJaeajvXQBNMIXCHV9488-24-23 08:34:[address] [place], [place] [address]DcytwiCPTUUMLNGK0930-38-05 08:34:00 Test Item Value Reference Range Interpretation Comments MCH (test code = MCH) 30.9 pg 27.0-31.0 [facility] CampusMayrgaJOSCYYQTCE7869-10-71 08:34:0090.4[facility] UUWBVBCNJQ5810-92-11 08:34:006.[address] [place], [place] [address]QianxdMDJBRBMOQV8833-99-81 08:34:003.97[facility] RiwxspNXMLJMNVJL9576-75-24 08:34:0010.4[facility] Medical FmoyalCHZLTQSBQI6950-08-71 08:34:11154MF[facility] CenterHEMATOLOGY 2017-02-03 08:34:0013.5[facility] DktzsuMLJOWFENNA7384-82-07 08:34:001.7[facility] KlhhuiKVEEJKWWFA6225-09-36 08:34:0015.3[facility] XCHFQPZIUY4353-38-41 08:34:0018.8[facility] EhozfxGDHETNCEIM8087-43-93 08:34:0063.8[facility] CampusQgyultQUPKTEHMRA4415-56-90 08:34:001.3MB[facility]inger [facility] Hospital DistrictWtitovNQBQUOGSLU3064-64-31 08:34:001.[address] [place], [place] [address]HEMATOLOGY 2017-02-03 08:34:000.1MB[facility] DistrictWummhvXRCLENSXTP0699-71-52 08:34:004.4[facility] CampusJxfircQOABJSQBWZ2253-05-90 08:34:000.4[facility] CampusCHEM ZDMKZ0612-70-37 17:15:002.3MB[facility] DistrictCHEM BULPI9858-82-02 07:26:00 1.8[facility] CampusCHEM THFXJ7507-37-23 07:26:002.0[facility] CampusCHEM OQOAT9947-35-41 07:26:000.59[facility] CampusCHEM PANEL 2017-02-02 07:26:0098[facility] CampusCHEM LFJGX2844-24-66 07:26:008.[address] [place], [place] [address]CHEM NKRTC1457-97-13 07:26:85779DVThe Hospitals of [facility] CampusCHEM VJMBN6333-32-89 07:26:0011.5[facility] CampusCHEM BTGNY0362-89-27 07:26:00 25[facility] CampusCHEM TZJWM0982-83-92 07:26:000.47[facility] CampusCHEM TXJAZ6968-08-56 07:26:004.[address] [place], [place] [address]CHEM PANEL 2017-02-02 07:26:36603WJThe Hospitals of [facility] CampusCHEM JXMEU0224-69-84 07:26:0016[facility] CampusCHEM QHEGH3547-78-69 07:26:58412QH[facility] RSEGNFZZSU5578-65-64 07:26:[address] [place], [place] [address]DbertbOUXDXEIQGB7201-23-05 07:26:10205LGThe [facility]als [facility] CampusXapzaaBUPCTOGIGU0182-62-70 07:26:009.[address] [place], [place] [address]WsaktaATZFNOJGNJ5936-34-46 07:26:[address] [place], [place] [address]HEMATOLOGY 2017-02-02 07:26:003.83[facility] CampusNlomhgLKVQTVVWLU3287-22-96 07:26:0033.7 [facility] CampusDqtcmhIBKRIIKPLA0632-11-13 07:26:00 Test Item Value Reference Range Interpretation Comments MCH (test code = MCH) 30.6 pg 27.0-31.0 [facility] CampusWvpzbjCXUGZURYVY6417-70-47 07:26:0011.7[facility] RBVQARJRNA8896-22-88 07:26:0034.8[facility] CampusPjktdhMAHZEPSLAR6858-89-83 07:26:0090.8[facility] CampusLataltVCYPRIQMCZ9694-62-13 07:26:[address] [place], [place] [address]VkjehlXCEAUYFCNM9365-64-29 07:26:000.9[facility] CampusHEMATOLOGY 2017-02-02 07:26:001.8[facility] CampusQxxqliKIWLULFVCH0015-06-15 07:26:000.[address] [place], [place] [address]VcamwcECMYBEGCIH2632-74-99 07:26:003.8[facility] KFHUFAFYJO2746-81-42 07:26:[address] [place], [place] [address]WuwskhPUSOGUMQWM1170-27-70 07:26:0026.8[facility] CampusBxnxnyDYOFUNOPCF3728-89-97 07:26:[address] [place], [place] [address]HamixvDCJDWPRSEQ2244-44-37 07:26:[address]58.[address] [place] [address] PARATHYROID YKUPMPS8943-48-64 07:26:001.04[facility] CampusPARATHYROID BSTTRUZ5830-46-07 07:26:001.08[facility] CampusCHEM CBCFV0396-32-93 08:12:001.9[facility] CampusCHEM ISQII2456-88-17 08:12:001.[address] [place], [place] [address]PARATHYROID TLIMEEE6864-45-45 08:12:001.[address] [place] [address] PARATHYROID LHSRUPT3086-13-21 08:12:001.13[facility] CampusTOXICOLOGY 2017-02-01 08:12:029365JWThe [facility]als of [facility] CampusFfdbtoZQBBWYMVXT6728-46-92 08:12:0016.4 [facility] CampusANEMIA HWQEW5295-05-08 18:42:963362PWThe [facility] CampusCHEM QZUQT2959-48-07 18:42:006.8[facility] CampusCHEM PANEL 2017-01-31 18:42:001.36[facility] CampusCHEM RWSOM5839-12-64 18:42:001.5[facility] CampusMgoavpKKQRFJRHBI9086-70-02 18:42:0021[facility] KYMJGJVTTO4369-90-66 18:42:00<0.2[facility] McallenVxkwjsTDLHYJGJJG0130-51-99 18:42:00<0.2[facility] McallenUnnwfhHUKZGPLKLP0257-35-23 18:42:0036.5[facility] CampusCHEM ADVXJ9023-05-74 07:44:001.8[facility] CampusPARATHYROID PCQBTUJ3146-86-38 07:44:001.11[facility] CampusPARATHYROID PROFILE 2017-01-31 07:44:001.11[facility] CampusBcqrgiKQXUULOTAN7567-98-29 05:44:111683 [facility] CampusVuxwalLQPCPRMPFV1770-98-54 05:44:008.0[facility] ANEMIA PAQMZ8646-71-84 15:25:124671SVThe Hospitals of Providence [facility] CampusCARDIAC ENZYMES 2017-01-29 15:25:000.010[facility] CampusCARDIAC KHKEJEX4505-93-48 15:25:000.11[facility] CampusCHEM QXWVV0861-44-76 15:25:005.4[facility] CampusHwwezoYNCYWRXIAL6736-85-40 15:25:005[facility] CampusIMMUNOLOGY 2017-01-29 15:25:00Negative (01/29/17 10:25 AM)[facility] 2017-01-29 15:25:00Negative (01/29/17 10:25 AM)[facility] 2017-01-29 15:25:0049.7[facility] CampusPdjrxuTSSFULHFHK9543-64-98 15:25:00 <0.2[facility] McallenXfbjkrJIPWPTKKCF8477-30-22 15:25:00<0.2[facility] McallenEwgbhgPYSAPBXEEH4707-79-07 15:25:00Negative (01/29/17 10:25 AM)[facility] CampusJhdtncCLLIHQKRVM1543-05-33 15:25:00Negative (01/29/17 10:25 AM)[facility] CampusCARDIAC ENFAMYL7494-72-64 07:45:000.015[facility] CARDIAC NOEKOAZ9336-31-71 07:45:000.18[facility] CampusCHEM PANEL 2017-01-29 07:45:89796ZSThe Hospitals of Providence Transmountain CampusCHEM JOMFD9982-82-87 07:45:71202ZNThe [facility]als of Providence [facility] CampusBACTERIAL - KUOIHHMG5421-04-04 05:17:00Urine *NA*(01/29/17 12:17 AM)[facility] CampusBACTERIAL - UBTIVUVZ8619-30-89 05:17:00Negative (01/29/17 12:17 AM)[facility] CampusDRUG ZQHVZQ4118-52-29 05:17:00Negative *NA*(01/29/17 12:17 AM)[facility] CampusDR[facility] KVRGYV8797-19-87 05:17:00 Negative *NA*(01/29/17 12:17 AM)[facility] CampusDR[facility] KLYLSF1753-40-22 05:17:00Negative *NA*(01/29/17 12:17 AM)[facility] CampusDRUG SCREEN 2017-01-29 05:17:00Positive *ABN*(01/29/17 12:17 AM)[facility] CampusDR[facility] QLFUFU9364-41-85 05:17:00Negative *NA*(01/29/17 12:17 AM)[facility] DRUG YCMVRY3411-26-08 05:17:00See Note (01/29/17 12:17 AM)[facility] CampusDR[facility] YEXDQF4207-15-75 05:17:00Negative *NA*(01/29/17 12:17 AM)[facility] CampusDRUG UKISMJ6254-35-70 05:17:00Negative *NA*(01/29/17 12:17 AM)[facility] CampusBACTERIAL - VXZWJTJQ7914-79-10 02:31:00Negative (01/28/17 9:31 PM)[facility] CampusCARDIAC ODVLJKK7098-36-92 02:31:000.017[facility] CampusCARDIAC YOQLUOX1544-27-37 02:31:000.15[facility] CARDIAC ISALBTS2165-79-96 02:31:03569YAThe [facility] CampusCHEM RLQMP0226-31-15 02:31:000.5[facility] CampusCHEM ZCBMW4326-64-91 02:31:0074[facility] CampusCHEM FSBUN1053-95-09 02:31:003.0[facility] CampusCHEM PANEL 2017-01-29 02:31:0036[facility] CampusCHEM LRRHK7670-88-58 02:31:006.0[facility] CampusCHEM EOOKU4841-48-69 02:31:0032[facility] CampusCHEM JUJEZ4816-25-86 02:31:003.0[facility] CampusCHEM ZLBSM0083-39-67 02:31:00 1.0[facility] CampusCHEM AICJG1884-12-80 02:31:0016[facility] FSXBSZATZU2646-07-31 02:31:001.14[facility] CampusXobmkmOLZANRMNWS5068-67-28 02:31:00 Test Item Value Reference Range Interpretation Comments PTT (test code = PTT) 29.4 s 22.9-35.8 [facility] CampusQfmqokDZZZHKGFBH8338-00-30 02:31:00 Test Item Value Reference Range Interpretation Comments PT (test code = PT) 14.6 s 12.0-14.7 [facility] CampusLIPIDS2017-10-21 02:31:0019[facility] CampusLIPIDS 2017-01-29 02:31:0096[facility] CampusLIPIDS2017-10-21 02:31:32166UJThe Hospitals of Providence Trans[facility]ain CampusLIPIDS2017-10-21 02:31:0047[facility] CampusLIPIDS2017-10-21 02:31:0044[facility] CampusLIPIDS2017-10-21 02:31:002.34[facility] CampusMOLECULAR PZBJNVBOYR0409-26-39 02:31:00Negative (01/28/17 9:31 PM)[facility] CampusMOLECULAR ONXPOCFHTW0706-40-33 02:31:00Negative (01/28/17 9:31 PM) [facility] CampusMOST[facility] CENTERULAR IDGPXDYKXV2312-21-91 02:31:00Negative (01/28/17 9:31 PM)[facility] ROSWTFWQPT8620-72-72 02:31:00Flocked SCARFER Swab (01/28/17 9:31 PM)[facility] SQZWUODSR6755-28-29 02:31:005.8[facility] GVTNDO4758-15-40 21:55:000[facility] SIBTSK6540-03-97 21:55:002[facility] FLUIDS 2017-01-28 21:55:00Clear (01/28/17 4:55 PM)[facility] FLUIDS 2017-01-28 21:55:00Colorless (01/28/17 4:55 PM)[facility] [id number] 21:55:00 Test Item Value Reference Range Interpretation Comments Tube Num CSF (test code = Tube Num CSF) 4 1 [facility] [id number] 21:55:00Colorless (01/28/17 4:55 PM)[facility] KUSMHI9793-83-06 21:24:0061[facility] MEWHZR7747-46-61 21:24:0047[facility] FLUIDS 2017-01-28 21:24:0067[facility] CLCJAM6493-68-99 21:24:00Clear (01/28/17 4:24 PM)[facility] NTXHFJ8129-11-50 21:24:001[facility] PGWAFU9108-25-23 21:24:00Colorless (01/28/17 4:24 PM)[facility] VKWCKO1895-20-98 21:24:00Colorless (01/28/17 4:24 PM)[facility] EDLRQZ2021-26-84 21:24:00 Test Item Value Reference Range Interpretation Comments Tube Num CSF (test code = Tube Num CSF) 1 1 [facility] CampusUbeqsgKNAWLTVUBR6023-11-90 21:24:0026.4[facility] NMAIJLURZF2680-49-72 21:24:259617.0[facility] CampusTnkdhvWWIKHGAVJN9822-11-60 21:24:07474CPThe [facility]als [facility] CampusFrwqcfVLMPPTYNQA3684-36-23 21:24:004.5[facility] CampusYlhjrwGKJWZIYRTE5523-01-74 21:24:000.6[facility] McallenURINE AND GDWVT7016-83-18 20:30:00Large *ABN*(01/28/17 3:30 PM)[facility] URINE AND CBFXY1423-27-28 20:30:00Negative *NA*(01/28/17 3:30 PM)[facility] CampusUR[facility] AND [id number] 20:30:00Negative *NA*(01/28/17 3:30 PM) [facility]UR[facility] AND GBZFY3611-59-99 20:30:00Negative (01/28/17 3:30 PM)[facility]UR[facility] AND MVQIC5582-89-57 20:30:00Small *ABN*(01/28/17 3:30 PM)[facility]UR[facility] AND EPJQY4175-81-93 20:30:000.2[facility]enUR[facility] AND HAPDG3572-51-85 20:30:00Slight Cloudy (01/28/17 3:30 PM) [facility] AND [id number] 20:30:00 Test Item Value Reference Range Interpretation Comments UA Spec Grav (test code = UA Spec 1.025 1 Grav) [facility]UR[facility] AND [id number] 20:30:00 Test Item Value Reference Range Interpretation Comments UA pH (test code = UA pH) 6.5 1 5.0-8.0 [facility]UR[facility] AND [id number] 20:30:00Negative (01/28/17 3:30 PM)[facility]UR[facility] AND YVGCY5359-33-17 20:30:00Yellow *NA*(01/28/17 3:30 PM)[facility] CampusCARDIAC HWFYJGF2215-76-96 20:00:0040[facility] CampusCHEM MAVYP0575-66-59 20:00:0021[facility] CampusCHEM PANEL 2017-01-28 20:00:005.2MB[facility] DistrictCHEM ZGADV6784-54-75 20:00:0027[facility] CampusCHEM QNKJK6936-18-68 20:00:002.5[facility] CampusCHEM VKZJF7661-88-66 20:00:0062[facility] CampusCHEM ZEOCH9589-98-55 20:00:00 2.7[facility] CampusCHEM [id number] 20:00:000.4[facility] CampusCHEM UGZQF5425-06-92 20:00:000.9[facility] CampusCHEM PANEL 2017-01-28 20:00:000.1MBallinger [facility] Hospital DistrictCHEM QJYVS4158-39-78 20:00:000.5[facility] CampusPunfmfLDVHNLAPQU6980-56-77 20:00:00Normal (01/28/17 3:00 PM)[facility] CampusWmohmtZFEKRRQREH3428-62-23 20:00:00Normal (01/28/17 3:00 PM)[facility]
[2019-09-08 09:52] LABS: Absolute Lymphocytes (CBC) 1.1 K/uL (0.7-4.9); Hematocrit 38.4 % (36.0-45.0); Lymphocytes % 15.5 % (15.3-44.8); MPV 8.1 fL (7.6-11.3); RBC Red Blood Cell Count 4.24 M/uL (3.86-4.86)
[2019-09-08 10:06] LABS: Potassium 3.2 mmol/L (3.5-5.1)
[2019-09-08 10:42] LABS: Urine Blood NEGATIVE (NEG); Urine Glucose NEGATIVE (NEG); Urine Protein NEGATIVE (NEG)
--- NOTE | 2019-09-08 12:00 | RAD REPORT ---
EXAM DESCRIPTION: US - Extrem Venous W Compress Nico - 09/08/2019 10:14 am CLINICAL HISTORY: SWELLING Bilateral leg edema and swelling. COMPARISON: No comparisons TECHNIQUE: Real-time sonographic interrogation of the left and right lower extremity deep venous sys tems was performed. FINDINGS: Normal compressibility, flow augmentation, phasic flow and spontaneous flow is identified in both the left and right lower extremity deep venous systems. IMPRESSION: No sonographic evidence of left or right lower extremity deep venous thrombosis.
[2019-09-08] MEDS ORDERED: SMZ./TMP. 800/160 MG TABLET ONE (12:35)
[2019-09-08 12:54] VITALS: TEMP 97.4
[2019-09-08 12:57] VITALS: BP 163/81; O2SAT 100
--- NOTE | 2019-09-10 17:53 | ER ---
Nurse's Notes [facility] Name: Amarilis Manjarrez Age: 78 yrs Sex: Female : 1940 Arrival Date: 09/08/2019 Time: 08:57 Bed 5 Private MD: Susan Harris Diagnosis: Urinary tract infection, site not specified;Urinary retention Presentation: 09/07 09:09 Chief complaint: Caregiver reports that over the past week, patient has had increased ss swelling to R ankle, back pain x 3 days. and unable to urinate since this morning. Daughter reports that when she has had similar symptoms in the past it was an exacerbation of her MS. Pt recently completed a course of oral Cipro for a UTI. Coronavirus screen: Proceed with normal triage. Patient denies a cough. Patient denies shortness of breath or difficulty breathing. Patient denies measured and/or subjective temperature greater than 100.4F prior to today's visit. Patient denies travel on a cruise ship or to a country the [facility] currently lists as an affected area. Patient denies contact with known and/or suspected case of COVID-19. Ebola Screen: Patient denies exposure to infectious person. Patient denies travel to an Ebola-affected area in the 21 days before illness onset. Initial Sepsis Screen: Does the patient meet any 2 criteria? No. Patient's initial sepsis screen is negative. Does the patient have a suspected source of infection? No. Patient's initial sepsis screen is negative. Risk Assessment: Do you want to hurt yourself or someone else? Patient reports no desire to harm self or others. Onset of symptoms is unknown. 09:09 Acuity: WILFRED 3 ss 09:09 Method Of Arrival: Wheelchair ss Triage Assessment: 09:05 General: Appears in no apparent distress. comfortable, well developed, Behavior is sv calm, cooperative, appropriate for age. Pain: Complains of pain in back and left lateral ankle. Neuro: Level of Consciousness is awake, alert, obeys commands, Oriented to person, situation, Moves all extremities. Gait is steady, Speech is normal. Cardiovascular: Patient's skin is warm and dry. Pulses are palpable in right dorsalis pedis artery and left dorsalis pedis artery Edema is 1+ to left ankle. Respiratory: Airway is patent Respiratory effort is even, unlabored, Respiratory pattern is regular, symmetrical. : Parent/caregiver report the patient having inability to void since this morning. Derm: Skin is pink, warm \T\ dry. Musculoskeletal: Range of motion: intact in all extremities. Historical: - Allergies: 09:12 PENICILLINS; ss - PMHx: 09:12 Hypertension; hyperthyroidism; Multiple Sclerosis; ss - PSHx: 09:12 Thyroidectomy; ; ss - Immunization history:: Adult Immunizations up to date. - Social history:: Smoking status: Patient denies any tobacco usage or history of. Screenin:07 Abuse screen: Denies threats or abuse. Denies injuries from another. Nutritional sv screening: No deficits noted. Tuberculosis screening: No symptoms or risk factors identified. Fall Risk None identified. Assessment: 09:35 Reassessment: Patient appears in no apparent distress at this time. No changes from sv previously documented assessment. Patient and/or family updated on plan of care and expected duration. Pain level reassessed. Patient is alert, oriented x 3, equal unlabored respirations, skin warm/dry/pink. 09:55 Reassessment: Ultrasound at the bedside. sv 10:50 Reassessment: Patient appears in no apparent distress at this time. No changes from sv previously documented assessment. Patient and/or family updated on plan of care and expected duration. Pain level reassessed. Patient is alert, oriented x 3, equal unlabored respirations, skin warm/dry/pink. 12:46 Reassessment: Patient appears in no apparent distress at this time. No changes from sv previously documented assessment. Patient and/or family updated on plan of care and expected duration. Pain level reassessed. Patient is alert, oriented x 3, equal unlabored respirations, skin warm/dry/pink. Vital Signs: 09:09 BP 129 / 67; Pulse 62; Resp 16; Pulse Ox 99% on R/A; Weight 42.64 kg; ss 09:09 Temp 97.4(TE); ss 10:00 BP 117 / 68; Pulse 64; Resp 16; Pulse Ox 99% ; sv 10:52 BP 161 / 71; Pulse 50; Resp 16; Pulse Ox 99% ; sv 12:09 BP 163 / 81; Pulse 51; Resp 16; Pulse Ox 100% ; sv 12:45 BP 169 / 86; Pulse 54; Resp 16; Pulse Ox 99% ; sv ED Course: 08:57 Patient arrived in ED. ag5 08:57 Susan Harris MD is Private Physician. ag5 09:01 Ryan Luna MD is Attending Physician. kdr 09:07 Rachel Dotson RN is Primary Nurse. sv 09:07 Arm band placed on. sv 09:07 Patient has correct armband on for positive identification. Placed in gown. Bed in low sv position. Call light in reach. Side rails up X2. Adult w/ patient. Pulse ox on. NIBP on. Door closed. Warm blanket given. Pillow given. Head of bed elevated. 09:11 Triage completed. ss 09:35 Inserted saline lock: 20 gauge in right antecubital area, using aseptic technique. sv Blood collected. Flushed right antecubital with 5 ml normal saline. 09:52 Bladder scan completed. 505 mls. sv 10:02 Urine collected: clean catch specimen, cloudy, Amount Voided: 100mL. 5 10:06 Urine Dipstick--Ancillary (enter results) Sent. sv 10:13 Ultrasound completed. Patient tolerated well. Notified ED Physician zeyad. sg3 10:14 US Extremity Venous W Compression Nico In Process Unspecified. EDMS 10:50 Bladder scan completed. 364 mls. sv 10:52 Awaiting radiology results. sv 12:11 Susan Harris MD is Referral Physician. kdr 12:46 No provider procedures requiring assistance completed. IV discontinued, intact, sv bleeding controlled, No redness/swelling at site. Pressure dressing applied. Administered Medications: 12:46 Drug: Bactrim (160 mg-800 mg (DS) 1 tablet Route: PO; sv 12:46 Follow up: Response: Medication administered at discharge. sv Outcome: 12:12 Discharge ordered by . kdr 12:46 Discharged to home via wheelchair, with caregiver sv 12:46 Condition: stable 12:46 Discharge instructions given to gym attendant, Instructed on discharge instructions, follow up and referral plans. medication usage, Demonstrated understanding of instructions, follow-up care, medications, Prescriptions given X 2. 12:46 Patient left the ED. sv Signatures: Dispatcher [employer] EDRachel Price, RN ANTHONY Ryan Luna MD MD kdr Smirch, Shelby, RN RN Tammy Mota [facility] Sheila Hanson sg3 Eliezer Antonio ag5
--- NOTE | 2019-09-10 17:53 | EDPHYS ---
Physician Documentation [facility] Name: Amarilis Manjarrez Age: 78 yrs Sex: Female : 1940 Arrival Date: 09/08/2019 Time: 08:57 Bed 5 Private MD: Susan Harris Physician Ryan Luna HPI: 09/07 09:38 This 78 yrs old Female presents to ER via Wheelchair with complaints of Leg kdr Swelling, Back Pain, Urinary Retention. 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 She has also c/o intermittent low back pain. Onset: The symptoms/episode began/occurred gradually, 3 day(s) ago. Severity of symptoms: At their worst the symptoms were mild in the emergency department the symptoms have improved markedly. It is unknown whether or not the patient has had similar symptoms in the past. The patient has not recently seen a physician. Historical: - Allergies: 09:12 PENICILLINS; ss - PMHx: 09:12 Hypertension; hyperthyroidism; Multiple Sclerosis; ss - PSHx: 09:12 Thyroidectomy; ; ss - Immunization history:: Adult Immunizations up to date. - Social history:: Smoking status: Patient denies any tobacco usage or history of. ROS: 09:40 Constitutional: Negative for fever, chills, and weight loss, Eyes: Negative for injury, kdr pain, redness, and discharge, Neck: Negative for injury, pain, and swelling, Cardiovascular: Negative for chest pain, palpitations, and edema, Respiratory: Negative for shortness of breath, cough, wheezing, and pleuritic chest pain, Skin: Negative for injury, rash, and discoloration, Psych: Negative for depression, anxiety, suicide ideation, homicidal ideation, and hallucinations, Allergy/Immunology: Negative for hives, rash, and allergies, Endocrine: Negative for neck swelling, polydipsia, polyuria, polyphagia, and marked weight changes, Hematologic/Lymphatic: Negative for swollen nodes, abnormal bleeding, and unusual bruising. 09:40 Abdomen/GI: Positive for abdominal pain, Negative for nausea, vomiting, and diarrhea, Possible urinary retention. Exam: 09:40 Constitutional: This is a well developed, well nourished patient who is awake, alert, kdr and in no acute distress. Head/Face: Normocephalic, atraumatic. Eyes: Pupils equal round and reactive to light, extra-ocular motions intact. Lids and lashes normal. Conjunctiva and sclera are non-icteric and not injected. Cornea within normal limits. Periorbital areas with no swelling, redness, or edema. Neck: Trachea midline, no thyromegaly or masses palpated, and no cervical lymphadenopathy. Supple, full range of motion without nuchal rigidity, or vertebral point tenderness. No Meningismus. Chest/axilla: Normal chest wall appearance and motion. Nontender with no deformity. No lesions are appreciated. Cardiovascular: Regular rate and rhythm with a normal S1 and S2. No gallops, murmurs, or rubs. Normal PMI, no JVD. No pulse deficits. Respiratory: Lungs have equal breath sounds bilaterally, clear to auscultation and percussion. No rales, rhonchi or wheezes noted. No increased work of breathing, no retractions or nasal flaring. Abdomen/GI: Soft, non-tender, with normal bowel sounds. No distension or tympany. No guarding or rebound. No evidence of tenderness throughout. Back: No spinal tenderness. No costovertebral tenderness. Full range of motion. Skin: Warm, dry with normal turgor. Normal color with no rashes, no lesions, and no evidence of cellulitis. MS/ Extremity: Pulses equal, no cyanosis. Neurovascular intact. Full, normal range of motion. Psych: Awake, alert, with orientation to person, place and time. Behavior, mood, and affect are within normal limits. 09:40 Neuro: Orientation: to person, Mentation: lucid, able to follow commands, confused. Vital Signs: 09:09 BP 129 / 67; Pulse 62; Resp 16; Pulse Ox 99% on R/A; Weight 42.64 kg; ss 09:09 Temp 97.4(TE); ss 10:00 BP 117 / 68; Pulse 64; Resp 16; Pulse Ox 99% ; sv 10:52 BP 161 / 71; Pulse 50; Resp 16; Pulse Ox 99% ; sv 12:09 BP 163 / 81; Pulse 51; Resp 16; Pulse Ox 100% ; sv 12:45 BP 169 / 86; Pulse 54; Resp 16; Pulse Ox 99% ; sv MDM: 09:47 Data reviewed: vital signs, nurses notes. Counseling: I had a detailed discussion with kdr the patient and/or guardian regarding: the historical points, exam findings, and any diagnostic results supporting the discharge/admit diagnosis, lab results. 12:12 Patient medically screened. kdr 09/07 09:32 Order name: CBC with Diff; Complete Time: 10:40 kdr 09/07 09:32 Order name: Chem 7; Complete Time: 10:40 kdr 09/07 09:32 Order name: US Extremity Venous W Compression Nico; Complete Time: 12:05 kdr 09/07 09:32 Order name: Urine Dipstick-Ancillary (obtain specimen); Complete Time: 10:03 kdr 09/07 10:05 Order name: Urine Dipstick--Ancillary (enter results); Complete Time: 12:05 eb 09/07 09:32 Order name: Bladder Scanner; Complete Time: 09:52 kdr 09/07 10:42 Order name: Bladder Scanner: Post void residual; Complete Time: 11:09 kdr Administered Medications: 12:46 Drug: Bactrim (160 mg-800 mg (DS) 1 tablet Route: PO; sv 12:46 Follow up: Response: Medication administered at discharge. sv Disposition: 09/08/19 12:12 Discharged to Home. Impression: Urinary tract infection, site not specified, Urinary retention. - Condition is Stable. - Discharge Instructions: Urinary Tract Infection, Adult, [id number], Acute Urinary Retention, Female, [id number]. - Prescriptions for Flomax 0.4 mg Oral Capsule, Sust. Release 24 hr - take 1 capsule by ORAL route once daily 1/2 hour following the same meal each day; 14 capsule. Bactrim DS 800- 160 mg Oral Tablet - take 1 tablet by ORAL route every 12 hours for 7 days; 14 tablet. - Medication Reconciliation Form, Thank You Letter, Antibiotic Education form. - Follow up: Susan Harris MD; When: 2 - 3 days; Reason: If symptoms return, Further diagnostic work-up, Recheck today's complaints, Continuance of care, Re-evaluation by your physician. - Problem is new. - Symptoms have improved. Signatures: Dispatcher [employer] Rachel Hong RN RN Ryan Luna MD MD [facility] Smirch, Carmen, RN RN ss Corrections: (The following items were deleted from the chart) 12:46 12:12 09/08/2019 12:12 Discharged to Home. Impression: Urinary tract infection, site sv not specified; Urinary retention. Condition is Stable. Forms are Medication Reconciliation Form, Thank You Letter, Antibiotic Education, Prescription Opioid Use. Follow up: Susan Harris; When: 2 - 3 days; Reason: If symptoms return, Further diagnostic work-up, Recheck today's complaints, Continuance of care, Re-evaluation by your physician. Problem is new. Symptoms have improved. kdr
== END 2019-09-08 12:46 | disposition home or self-care (01) ==
LOC: ER 08:53
DX: N39.0 Urinary tract infection, site not specified (principal); R33.9 Retention of urine, unspecified; I10 Essential (primary) hypertension; Z88.0 Allergy status to penicillin
CPT/HCPCS: 36415; 80048; 81003; 85025; 93970; 99284

== ENCOUNTER 2020-07-08 09:28 | Emergency (ER) | payer OTHER ==
--- OUTSIDE RECORDS SUMMARY | 2020-07-08 09:33 | XMS REPORT | Continuity of Care Document ---
:1940 Author Organization [facility] t Address [address] [place] [address] Care Team Providers Name Role Phone Chuy Mathur Attending Clinician Kaz Hamm Attending Clinician Kendra Admitting Clinician Problems Condition Condition Condition Status Onset Resolution Last Treating Co mments Source Name Details Category Date Date Treatment Clinician Date G40.219 Diagnosis Active 2017-05-13 Me moria 1- 08:45:00 l G40.219 00:00: [place] 00 Active 04/11/2017 [facility] JES Diagnosis Active 2016-042017-05-13 Memoria BILLING 0-20 08:45:00 l 00:00: Adis JES 00 BILLING Active 01/28/2017 [facility] CVA Diagnosis Active 2016-042017-01-28 Mem oria 0-20 16:03:00 l CVA 00:00: Adis 00 Active 01/28/2017 [facility] AMS, CVA Diagnosis Active 2016-042017-05-13 M emoria 0-20 08:45:00 l AMS, CVA 00:00: Delfino gage 00 Active 01/28/2017 [facility] Asthenia Problem Active 2017-08-18 Mem oria (finding) - 17:52:01 l Asthenia 00:00: Delfino n (finding) 00 Active 11/06/2009 Problem 08/18/2017 [facility] ALTERED Diagnosis Active 2017-05-13 Me moria MENTAL 08:45:00 l STATUS, ALTERED Delfino n UNSPECIFIE MENTAL D STATUS, UNSPECIFIE D Active [facility] 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 08:45:00 l W CMPLX [place] PART SEIZ, 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, Active [facility] Hypertensi Problem Resolve 2017-08-18 Memoria ve d 17:52:01 l disorder, [place] systemic Hypertensi arterial ve (disorder) disorder, systemic arterial (disorder) Resolved Problem 08/18/2017 [facility] Multiple Problem Resolve 2017-08-18 Or moria sclerosis d 17:52:01 l (disorder) Multiple He rmann sclerosis (disorder) Resolved Problem 08/18/2017 [facility] History of Past Illness Condition Condition Condition Status Onset Resolution Last Treating Co mments Source Name Details Category Date Date Treatment Clinician Date Localizati Problem 2017-08-18 2017-08-18 Memoria on-related 2-06 17:52:01 17:52:01 l (focal) 04:16: [place] (partial) 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, with intractabl complex e, without partial status seizures, epilepticu intractabl s e, without status epilepticu s 05/17/2017 08/18/2017 [facility] Allergies, Adverse Reactions, Alerts Allergy Allergy Status Severity Reaction(s) Onset Inactive Treating Comm ents Source Name Type Date Date Clinician penicill penicill Active Memori a ins ins l [place] sulfa sulfa Active Memoria drugs drugs l Adis PCN Adverse Active Info Not [facility] Reaction Available [facility] Medications Ordered Filled Start Stop Current Ordering Indication Dosage Frequency Signature Comments Components Source Medication Medication Date Date Medication? Clinician (SIG) Name Name Oxybutynin Oxybutynin 2020- No Susan [address] [facility] Chloride ER Chloride ER 5-25 05-10 [facility] hydrALAZINE 2016-04 Yes PO, Memori a 50 mg oral 0-30 Q8H-05, 0 l tablet 16:29: Refill(s) Delfino n 00 levETIRAcet 2016-04 Yes 1,500 mg = Memoria am 100 0-30 15 mL, [place], l mg/mL oral 16:29: Q12H, 0 Herm amparo solution 00 Refill(s) NIFEdipine 2016-04 Yes PO, Daily, M emoria 60 mg oral 0-30 0 l tablet, 16:29: Refill(s) Kinga nn extended 00 release melatonin 3 2016-04 Yes 3 mg, PO, M emoria mg oral 0-30 Bedtime, 0 l tablet 16:29: Refill(s) Delfino n 00 NIFEdipine 2016-04 No Notes: Memor ia 60 mg oral 0-30 (Same as: l tablet, 14:00: Adalat CC, Herm amparo extended 00 Procardia release XL) Give on empty stomach. Take 1 hour before or 2 hours after meal; "Avoid grapefruit and grapefruit juice". Do not crush NIFEdipine 2016-04 No Notes: Memor ia 30 mg oral 0-29 (Same as: l tablet, 14:00: Adalat CC, Herm amparo extended 00 Procardia release XL) Give on empty stomach. Take 1 hour before or 2 hours after meal; "Avoid grapefruit and grapefruit juice". melatonin 2016-04 No Notes: Memori a 0-28 (Same as: l 02:00: Melatonin) Adis 00 Dilantin 2016-04 No Notes: Memoria 0-27 (Same as: l 14:00: Dilantin) [place] 00 Rinse packet/syr mika with water "Caution of interactio n with continuous NG feedings: Withhold administra tion of nutritiona l supplement s for 1-2 hours before and after phenytoin dose". Dilantin 2016-04 No Notes: Memoria 0-27 (Same as: l 02:00: Dilantin) [place] 00 Rinse packet/syr mika with water "Caution of interactio n with continuous NG feedings: Withhold administra tion of nutritiona l supplement s for 1-2 hours before and after phenytoin dose". hydrALAZINE 2016-04 No Notes: Ramon dony 25 mg oral 0-26 (Same as: l tablet 13:00: Apresoline Kinga nn 00 ) May interfere w/enteral feedings Take With Food lisinopril 2016-04 No Notes: Memor ia 0-26 (Same as: l 02:40: Prinivil, Adis Zestril) Dilantin 2016-04 No Notes: Memoria 0-25 (Same as: l 21:00: Dilantin) Rinse packet/syr mika with water "Caution of interactio n with continuous NG feedings: Withhold administra tion of nutritiona l supplement s for 1-2 hours before and after phenytoin dose". hydrALAZINE 2016-04 No Notes: Ramon dony 25 mg oral 0-25 (Same as: l tablet 14:00: Apresoline Kinga nn 00 ) May interfere w/enteral feedings Take With Food. hydrALAZINE 2016-04 No Notes: Ramon dony 25 mg oral 0-25 (Same as: l tablet 11:36: Apresoline Kinga nn 00 ) May interfere w/enteral feedings Take With Food. Insulin 2016-04 No 60 Memoria regular 0-24 units) l 22:19: WASTE: F/P Adis 00 - Black; E - Ecelles Carson Trash Bin Stable for 28 days at room temperatur e Expires in days from ____Date Dextrose 2016-04 No 12.5 gm, Memor ia 50% Syringe 0-24 25 mL, l 22:19: Route: IVP, Drug Form: INJ, Dosing Weight 52.1, kg, PRN, PRN Blood Glucose Results, Start date: 02/01/17 17:19:00 CDT, Duration: 30 day, Stop date: 03/03/17 16:18:00 REINSURANCE CLAIMS ANALYST glucagon 2016-04 No 1 mg, Memoria 0-24 Route: IM, l 22:19: Drug form: PDR/INJ, PRN, Dosing Weight 52.1, kg, PRN Blood Glucose Results, Start date: 02/01/17 17:19:00 CDT, Duration: 30 day, Stop date: 03/03/17 16:18:00 REINSURANCE CLAIMS ANALYST NIFEdipine 2016-04 No Notes: Memor ia 30 mg oral 0-24 (Same as: l tablet, 14:00: Adalat CC, Herm amparo extended Procardia release XL) Give on empty stomach. Take 1 hour before or 2 hours after meal; "Avoid grapefruit and grapefruit juice". Do not crush NIFEdipine 2016-04 No Notes: Memor ia 30 mg oral 0-23 (Same as: l tablet, 21:07: Adalat CC, Herm amparo extended Procardia release XL) Give on empty stomach. Take 1 hour before or 2 hours after meal; "Avoid grapefruit and grapefruit juice". Do not crush Dilantin 2016-04 No Notes: Memoria 0-23 (Same as: l 16:23: Dilantin) Do not infuse greater than 50 mg/min. MEDICATION WASTE Product Size: 100 mg Product Wasted: ___ mg Ativan 2016-04 No 2 mg, Memoria 0-23 Route: IV, l 16:10: ONCE, Dosing Weight 52.1, kg, Start date: 01/31/17 11:10:00 CDT, Stop date: 01/31/17 11:10:00 CDT Dilantin + 2016-04 No Notes: Memor ia sodium 0-22 (Same as: l chloride 21:00: Dilantin) Herm amparo 0.9% INJ 00 Do not 100 mL infuse greater than 50 mg/min. MEDICATION WASTE Product Size: 100 mg Product Wasted: _0__ mg vancomycin 2016-04 No 2001 mg: Me moria + sodium 0-22 infuse l chloride 20:00: over 2.5 Kinga nn 0.9% 250 mL 00 hours INJ (for IV set) 250 mL MEDICATION WASTE Product Size: 1000 mg Product Wasted: 250___ mg Dilantin 2016-04 No 1 gm, Memoria 0-22 Route: IV, l 19:36: ONCE, Dosing Weight 52.1, kg, Priority: NOW, Start date: 01/30/17 14:36:00 CDT, Stop date: 01/30/17 14:36:00 CDT metoprolol 2016-04 No Notes: Memor ia tartrate 0-22 (Same as: l 15:11: Lopressor) fentaNYL 2016-04 No Notes: Memoria 0-22 (Same as: l 14:08: Sublimaze) Preservat camille free. vancomycin 2016-04 No 2000 mg: Me moria + sodium 0-22 infuse l chloride 10:30: over 2.5 Kinga nn 0.9% 250 mL 00 hours INJ (for IV set) 250 mL MEDICATION WASTE Product Size: 1000 mg Product Wasted: ___ mg fentaNYL 2016-04 No 25 Memoria 0-22 microgram, l 09:56: Route: IV, [place] 00 ONCE, Dosing Weight 52.1, kg, Start date: 01/30/17 4:56:00 CDT, Stop date: 01/30/17 4:56:00 CDT fentaNYL 2016-04 No 25 Memoria 0-22 microgram, l 03:21: Route: IV, ONCE, Dosing Weight 52.1, kg, Start date: 01/29/17 22:21:00 CDT, Stop date: 01/29/17 22:21:00 CDT Dextrose 2016-04 No 12.5 gm, Memor ia 50% Syringe 0-22 25 mL, l 02:54: Route: IVP, Drug Form: INJ, Dosing Weight 52.1, kg, PRN, PRN Blood Glucose Results, Start date: 01/29/17 21:54:00 CDT, Duration: 30 day, Stop date: 02/28/17 20:53:00 REINSURANCE CLAIMS ANALYST glucagon 2016-04 No 1 mg, Memoria 0-22 Route: IM, l 02:54: Drug form: [place] 00 PDR/INJ, PRN, Dosing Weight 52.1, kg, PRN Blood Glucose Results, Start date: 01/29/17 21:54:00 CDT, Duration: 30 day, Stop date: 02/28/17 20:53:00 REINSURANCE CLAIMS ANALYST insulin 2016-04 No 60 Memoria lispro 0-22 units) l 02:54: WASTE: F/P Adis 00 - Black; E - Municipal Trash Bin Stable for 28 days at room temperatur e. Expires in days from ____Date docusate 2016-04 No Notes: Memoria sodium 0-22 (Same as: l 02:16: Colace) [place] 00 Lactated 2016-04 No 500 mL, Memori a Ringers 0-22 500 ml/hr, l (Bolus) IV 00:48: Infuse Kinga nn 00 Over: 1 hr, Route: IV, 500, Drug form: INJ, ONCE, Priority: STAT, Dosing Weight 52.1 kg, Start date: 01/29/17 19:48:00 CDT, Duration: 1 doses or times, Stop date: 01/29/17 19:48:00 CDT Azithromyci 2016-04 No Notes: Ramon dony n 3 Day 0- Take 1 l Dose Pack 14:00: hour Adis 500 mg oral 00 before or tablet 2 hours after meals. (Same As: Zithromax) Saline 2016-04 No Notes: Memoria Flush 0.9% 0-21 (Same as: l 14:00: BD Adis 00 Posiflush) docusate 2016-04 No Notes: Memoria 0-21 (Same as: l 14:00: Colace) Adis 00 (Do Not Crush) senna 2016-04 No Notes: Memoria 0-21 (Same as: l 14:00: Senokot) Adis 00 famotidine 2016-04 No Notes: Memor ia 0-21 (Same as: l 14:00: Pepcid) [place] 00 Can be dilute in 5-10cc NS IVP: Slow IV push over at least 2 minutes. losartan 2016-04 No Notes: Memoria 0-21 (Same as: l 14:00: Cozaar) [place] 00 atorvastati 2016-04 No Notes: Ramon dony n 0-21 (Same as: l 14:00: Lipitor) Adis 00 heparin 2016-04 No 5,000 Memoria 0-21 unit, l 13:00: Route: Adis 00 SUB-Q, Q8H, Dosing Weight 52.1, kg, Start date: 01/29/17 8:00:00 CDT, Duration: 30 day, Stop date: 02/28/17 0:00:00 REINSURANCE CLAIMS ANALYST heparin 2016-04 No Notes: Memoria 0-21 porcine l 12:37: heparin [place] 00 Azithromyci 2016-04 No Notes: Ramon dony n 3 Day 0- Take 1 l Dose Pack 11:14: hour Adis 500 mg oral 00 before or tablet 2 hours after meals. (Same As: Zithromax) calcium 2016-04 No Notes: Memoria carbonate 0-21 (Same As: l 500 mg (200 11:12: Tums) Kinga nn mg 00 Calcium elemental Carbonate calcium) 500 mg = oral tablet 200 mg elemental calcium Dose = mg calcium carbonate ( mg elemental calcium) calcium 2016-04 No Notes: Memoria gluconate + 0-21 WASTE: F/P l sodium 11:12: - Sink; E Delfino n chloride 00 - 0.9% INJ 50 Municipal mL Trash Bin sodium 2016-04 No 30 mmol, Memoria phosphate + 0-21 10 mL, l sodium 11:12: Route: [place] chloride 00 IVPB, PRN, 0.9% INJ Dosing 250 mL Weight 52.1, kg, PRN Abnormal Lab Result, Start date: 01/29/17 6:12:00 CDT, Duration: 30 day, Stop date: 02/28/17 5:11:00 REINSURANCE CLAIMS ANALYST, FOR ICU USE ONLY potassium 2016-04 No Notes: Memori a chloride 0-21 (Same as: l 11:12: Potassium Adis 00 Chloride) potassium 2016-04 No Notes: Memori a phosphate + 0-21 (Same as: l sodium 11:12: K Adis chloride 00 Phosphate. 0.9% INJ ) 1 mMol 250 mL phoshate has 1.47 mEq potassium Infuse over 4 hours magnesium 2016-04 No Notes: Memori a oxide 0-21 (Same as: l 11:12: Mag-Ox [place] 00 400) Magnesium oxide [id number] g elemental magnesium Dose=____m g magnesium oxide (___mg elemental magnesium) potassium 2016-04 No Notes: Memori a phosphate-s 0-21 (Same as: l odium 11:12: Phos-NaK) [place] phosphate 00 Each 1.5 250 mg-280 gm pkt has mg-160 mg 250mg oral powder phosphorou for s. Mix reconstitut w/2.5oz ion water and stir. magnesium 2016-04 No Notes: Memori a sulfate 0-21 WASTE: F/P l 11:12: - Sink; E Adis 00 - Municipal Trash Bin Lactated 2016-04 No 1,000 mL, Ramon dony Ringers 0-21 1,000 l (Bolus) IV 11:09: ml/hr, Kinga nn 00 Infuse Over: 1 hr, Route: IV, 1,000, Drug form: INJ, ONCE, Priority: STAT, Dosing Weight 52.1 kg, Start date: 01/29/17 6:09:00 CDT, Duration: 1 doses or times, Stop date: 01/29/17 6:09:00 CDT vancomycin 2016-04 No 2001 mg: Me moria + sodium 0-21 infuse l chloride 10:35: over 2.5 Kinga nn 0.9% 250 mL 00 hours INJ (for IV set) 250 mL MEDICATION WASTE Product Size: 1000 mg Product Wasted: ___ mg Plegridy 2016-04 Yes 125 Memoria 0-21 microgram, l 10:29: SUB-Q, [place] 00 Q14D, 0 Refill(s) risedronate 2016-04 Yes 150 mg = 1 Memoria 150 mg oral 0-21 tab, PO, l tablet 10:29: qMonth Adis 00 losartan 2016-04 Yes 100 mg = 1 Mem oria 100 mg oral 0-21 tab, PO, l tablet 10:29: Daily, 0 Adis 00 Refill(s) atorvastati 2016-04 Yes 40 mg = 1 M emoria n 40 mg 0-21 tab, PO, l oral tablet 10:29: Daily, 0 He rmann 00 Refill(s) oxybutynin 2016-04 Yes 50 mg, PO, M emoria 0-21 Daily, 0 l 10:29: Refill(s) Adis 00 nitroprussi 2016-04 No 50 mg, PO, Memoria de 0-21 ONCE, 0 l 10:29: Refill(s) Adis metoprolol 2016-04 Yes 100 mg = 1 M emoria tartrate 0-21 tab, PO, l 100 mg oral 10:29: BID, 0 Herm amparo tablet 00 Refill(s) fentaNYL 2016-04 No 25 Memoria 0-21 microgram, l 09:11: Route: IV, [place] 00 ONCE, Dosing Weight 52.1, kg, Start date: 01/29/17 4:11:00 CDT, Stop date: 01/29/17 4:11:00 CDT cefepime 2016-04 No Notes: Memoria 0-21 (Same As: l 09:04: Maxipime) [place] MEDICATION WASTE Product Size: 1000 mg Product Wasted: ___ mg Keppra 2016-04 No Notes: Memoria 0-21 (Same l 08:34: as:Keppra) [place] Visipaque 2016-04 No 100 mL, Memor ia 320mg/ml 0-21 Route: l 07:54: IVP, Drug [place] Form: SOLN, Dosing Weight 52.1, kg, ONCALL, STAT, Start date: 01/29/17 2:54:00 CDT, Duration: 1 doses or times, Dose = 2.2ml/kg, Max dose = 100ml -- "To be infused by Radiology Staff ONLY" ocular 2016-04 No Notes: Memoria lubricant 0-21 (Same as: l 05:00: Aquasite) [place] Lactated 2016-04 No 1,000 mL, Ramon dony Ringers 0-21 1,000 l (Bolus) IV 04:55: ml/hr, Kinga nn 00 Infuse Over: 1 hr, Route: IV, 1,000, Drug form: INJ, ONCE, Priority: STAT, Dosing Weight 60 kg, Start date: 01/28/17 23:55:00 CDT, Duration: 1 doses or times, Stop date: 01/28/17 23:55:00 CDT Tylenol 2016-04 No Notes: Do Memor ia 0-21 not exceed l 03:05: 4 gm/day. Adis 00 (Same as: Tylenol) Saline 2016-04 No Notes: Memoria Flush 0.9% 0-21 (Same as: l 02:19: BD Adis Posiflush) nystatin 2016-04 No Notes: Memoria topical 0-21 (Same l 100,000 02:19: as:Mycosta Herm amparo units/g 00 tin, powder Nilstat) For external use only. BD Normal 2016-04 No Notes: Memori a Saline 0-21 (Same as: l Flush 02:00: BD Adis 00 Posiflush) chlorhexidi 2016-04 No Notes: Armon dony ne topical 0-21 (Same As: l 0.12% 02:00: Peridex) Adis liquid 00 chlorhexidi 2017-1 No Notes: Ramon dony ne topical 0-21 (Same As: l 0.12% 01:24: Peridex) [place] labetalol 2016-04 No 10 mg, Memori a 0-21 Route: IV, l 01:21: ONCE, Adis 00 Dosing Weight 60, kg, Start date: 01/28/17 20:21:00 CDT, Stop date: 01/28/17 20:21:00 CDT cefepime 2016-04 No 1 gm, Memoria 0-20 Route: l 21:53: IVPB, Adis ONCE, Dosing Weight 60, kg, Priority: STAT, Start date: 01/28/17 16:53:00 CDT, Duration: 1 doses or times, Stop date: 01/28/17 16:53:00 CDT, ABX Indication : Pneumonia vancomycin 2016-04 No 2000 mg: Me moria 0-20 infuse l 21:53: over 2.5 [place] 00 hours MEDICATION WASTE Product Size: 1000 mg Product Wasted: ___ mg propofol 2016-04 No Notes: If Ramon dony INJ 1,000 0-20 Diprivan - l mg 21:51: change bottle & tubing every 12 hr Per state nursing law propofol can only be given by a nurse if patient is intubated or being intubated (unless the nurse is a SIGNAL SUPERVISOR). Same as: Diprivan propofol 2016-04 No 500 mg, 50 Mem oria 500 mg 0-20 mL, Rate: l 21:14: Titrate, Start Dose: 5 microgram/ kg/min, Titration: 5 microgram/ kg/min every 15 min, Goal(s): MAP 65-85, Max Dose: 50 microgram/ kg/min, Route: IV, Dosing Weight 60 kg, Total Volume: 50, Start date: 01/28/17 16:14:00 CDT, Duration:. .. fentaNYL 2016-04 No 65, Max Memori a 1000microgr 0-20 Dose: 300 l am/20ml 20:07: microgram/ Herm amparo drip 00 hr, Route: (pyxis) IV, Total 1,000 Volume: microgram 20, Start date: 01/28/17 15:07:00 CDT, Duration: 30 day, Stop date... midazolam 2016-04 No Notes: Memori a 50mg/ NS 0-20 (Same as: l 50ml drip 20:07: Versed) Kinga nn (premixed) 00 50 mg Saline 2016-04 No Notes: Memoria Flush 0.9% 0-20 (Same as: l 20:04: BD [place] 00 Posiflush) Vitamin Vitamin Yes Susan [address] [facility] B-12 B-12 [facility] D-Mannose D-Mannose Yes Susan 1000 mg>>[address] [facility] Millender tablet [facility] Citracal Citracal Yes Susan not [facility] +D3 +D3 Millender defined [...] Susan [address] [facility] Sodium Sodium 05-10 [facility] Vital Signs Vital Name Observation Time Observation Value Comments Source Temperature Oral (F) 2017-02-08 17:00:[address] [facility] Heart Rate 2017-02-08 17:00:00 [facility] Adis Respitory Rate 2017-02-08 17:00:00 Memori al [place] Systolic (mm Hg) 2017-02-08 17:00:00 Ramon rial Adis Diastolic (mm Hg) 2017-02-08 17:00:00 Mem orial Adis Systolic (mm Hg) 2017-02-08 13:30:00 Ramon rial [place] Diastolic (mm Hg) 2017-02-08 13:30:00 Mem orial Adis Heart Rate 2017-02-08 13:30:00 [facility] [place] Respitory Rate 2017-02-08 13:30:00 Memori al [place] Temperature Oral (F) 2017-02-08 13:30:00 97.7 F [facility] [place] Systolic (mm Hg) 2017-02-08 09:57:00 Ramon rial Adis Diastolic (mm Hg) 2017-02-08 09:57:00 Mem orial [place] Temperature Oral (F) 2017-02-08 09:57:00 97.9 F [facility] Adis Respitory Rate 2017-02-08 09:57:00 Memori al Adis Heart Rate 2017-02-08 09:57:00 [facility] [place] Height 2017-01-30 12:37:00 162.56 cm [facility] Adis Height 2017-01-30 08:59:00 162.56 cm [facility] Adis Height 2017-01-30 03:17:00 162.56 cm [facility] [place] Weight 2017-01-29 05:36:00 [facility] BMI Calculated 2017-01-29 05:36:00 Memori al [place] Weight 2017-01-28 22:10:00 [facility] Adis Weight 2017-01-28 21:23:00 [facility] Procedures Procedure Date / Time Performed Performing Clinician Sour e Dental appliance [facility] Delfino n component<sup>1</sup> Encounters Start End Encounter Admission Attending Care Care Encounter Source Date/Time Date/Time Type Type Clinicians Facility Department ID 2020-07-07 2020-07-[address] [facility] [id number] 2020-05-22 2020-05-[address] [facility] [id number] [facility] 2020-04-30 2020-04-30 [facility] [id number] [facility] 2020-04-24 2020-04-24 [facility] [id number] [facility] 2020-04-22 2020-04-22 Out[facility] [id number] [facility] 2020-02-22 2020-02-22 Outpatient [facility] [id number] [facility] 2020-01-21 2020-01-21 Outpatient [facility] [id number] [facility] 2020-01-16 2020-01-16 Out[facility] [id number] [facility] 2020-01-16 2020-01-16 Out[facility] [id number] [facility] 2019-11-21 2019-11-21 [facility] [id number] [facility] 15:40:00 15:40:00 t [facility] l Medicine Outpati ent Clinics 2019-04-18 2019-04-18 [facility] [id number] [facility] 10:00:00 10:00:00 t [facility] Medicine l Medicine Outpati ent Clinics 2019-04-13 2019-04-13 [facility] [id number] [facility] 09:45:00 09:45:00 t [facility] Family Medicine l Medicine Outpati ent Clinics 2019-02-08 2019-02-08 [facility] [id number] [facility] 09:36:00 09:36:00 t Urgent [facility] L es - Care Clinic [facility] Clinic l Outpati ent Clinics 2019-01-24 2019-01-24 [facility] [id number] [facility] 11:40:00 11:40:00 t [facility] Medicine Outpati ent Clinics 2019-01-11 2019-01-11 [facility] [id number] [facility] 10[facility]20:00 10:20:00 t [facility] Medicine Outpati ent Clinics 2018-10-23 2018-10-23 [facility] [id number] [facility] 10:00:00 10:00:00 t [facility] Medicine Outpati ent Clinics 2018-10-18 2018-10-18 [facility] [id number] [facility] 09:40:00 09:40:00 t [facility] Medicine Outpati ent Clinics 2018-08-25 2018-08-25 [facility] [id number] [facility] 11:00:00 11:00:00 t [facility] Medicine Medicine Outpati ent Clinics 2018-08-11 2018-08-11 [facility] [id number] [facility] 00:31:00 00:31:00 t [facility] Medicine Outpati ent Clinics 2018-08-07 2018-08-07 [facility] [id number] [facility] 11:22:00 11:22:00 t [facility] Medicine Medicine Outpati ent Clinics 2018-07-21 2018-07-21 [facility] [id number] [facility] 10:34:00 10:34:00 t [facility] Medicine Medicine Outpati ent Clinics 2018-07-16 2018-07-16 [facility] [id number] [facility] 09:04:00 09:04:00 t Urgent Urgent Care L [facility] l Outpati ent Clinics 2018-07-14 2018-07-14 [facility] [id number] [facility] [address] 17:22:00 17:22:00 t Urgent [facility] Outpati ent Clinics 2018-07-14 2018-07-14 [facility] [id number] [facility] 16:07:00 16:07:00 t Urgent Urgent Care L es - Care Clinic [facility] Outpati ent Clinics 2018-07-14 2018-07-14 [facility] [id number] [facility] 14:15:00 14:15:00 t Urgent Ur[facility] Outpati ent Clinics 2018-07-14 2018-07-14 [facility] [id number] [facility] 10:32:00 10:32:00 t [facility] Medicine Outpati ent Clinics 2018-07-12 2018-07-12 [facility] [id number] [facility] 16:40:00 16:40:00 t [facility] Medicine Outpati ent Clinics 2018-06-08 2018-06-08 [facility] [id number] [facility] 12:19:00 12:19:00 t [facility] Medicine Outpati ent Clinics 2018-04-13 2018-04-13 [facility] [id number] [facility] 21:00:00 21:00:00 t [facility] l Medicine Outpati ent Clinics 2018-04-13 2018-04-13 [facility] [id number] [facility] 09:00:00 09:00:00 t [facility] Medicine Medicine Outpati ent Clinics 2018-04-12 2018-04-12 [facility] [id number] [facility] 09:10:00 09:10:00 t [facility] Medicine Outpati ent Clinics 2018-01-13 2018-01-13 [facility] [id number] [facility] 01:01:00 01:01:00 t [facility] Medicine Outpati ent Clinics 2018-01-12 2018-01-12 [facility] [id number] [facility] 10:30:00 10:30:00 t [facility] Medicine Outpati ent Clinics 2017-12-30 2017-12-30 [facility] [id number] [facility] 08:47:00 08:47:00 t [facility] Medicine Outpati ent Clinics 2017-12-05 2017-12-05 [facility] [id number] [facility] 16:26:00 16:26:00 t [facility] Medicine Outpati ent Clinics 2017-11-24 2017-11-24 [facility] [id number] [facility] 08:39:00 08:39:00 t [facility] Medicine Outpat[facility] Clinics 2017-11-02 2017-11-02 [facility] [id number] [facility] 11:11:00 11:11:00 t [facility] Medicine Outpati ent Clinics 2017-09-29 2017-09-29 [facility] [id number] 10:29:00 10:29:00 t [facility] Medicine Outpati ent Clinics 2017-09-27 2017-09-27 [facility] [id number] 11:22:00 11:22:00 [facility] Medicine Outpati ent Clinics 2017-09-02 2017-09-02 [facility] [id number] 14:00:00 14:00:00 [facility] Medicine Outpati ent Clinics 2017-05-12 2017-05-12 [facility], [facility] [id number] 10:11:00 23:59:00 [place] 2017-05-12 2017-05-12 [facility], [facility] [id number] 10:11:00 23:59:00 [place] 00 [place] 2017-01-28 2017-02-08 [facility], [facility] [id number] 14:55:00 15:02:00 Victorino Mccurdy Results Test Description Test Time Test Comments Results Result Comments Source CHEM PANEL 2017-02-04 8.6 [facility] 08:[facility]:00 CHEM PANEL 2017-02-04 143 [facility] 08:15:00 CHEM PANEL 2017-02-04 137 [facility] 08:15:00 CHEM PANEL 2017-02-04 4.1 [facility] 08:15:00 CHEM PANEL 2017-02-04 0.46 [facility] 08:15:00 CHEM PANEL 2017-02-04 22 [facility] 08:15:00 CHEM PANEL 2017-02-04 14.1 [facility] 08:15:00 HEMATOLOGY 2017-02-04 0.1 [facility] 08:15:00 HEMATOLOGY 2017-02-04 1.0 [facility] 08:15:00 HEMATOLOGY 2017-02-04 5.2 [facility] 08:15:00 HEMATOLOGY 2017-02-04 1.6 [facility] 08:15:00 HEMATOLOGY 2017-02-04 1.2 [facility] 08:15:00 HEMATOLOGY 2017-02-04 0.2 [facility] 08:15:00 HEMATOLOGY 2017-02-04 2.7 [facility] 08:15:00 HEMATOLOGY 2017-02-04 14.1 [facility] 08:15:00 HEMATOLOGY 2017-02-04 19.5 [facility] 08:15:00 HEMATOLOGY 2017-02-04 62.7 [facility] 08:15:00 HEMATOLOGY 2017-02-04 13.3 [facility] 08:15:00 HEMATOLOGY 2017-02-04 179 [facility] 08:15:00 HEMATOLOGY 2017-02-04 9.9 [facility] 08:15:00 HEMATOLOGY 2017-02-04 34.3 [facility] 08:15:00 HEMATOLOGY 2017-02-04 11.7 [facility] 08:15:00 HEMATOLOGY 2017-02-04 34.0 [facility] 08[facility]15:00 HEMATOLOGY 2017-02-04 90.1 [facility] 08:15:00 HEMATOLOGY 2017-02-04 08:15:00 Test Item Value Reference Range Interpretation Comme nts MCH (test code = MCH) 30.9 pg 27.0-31.0 [facility] FalfaybKKQKPMFZXZ7681-09-56 08:15:008.3[facility]annHEMATOLOGY 2017-02-04 08:15:003.78[facility] HermannCHEM UPDGV1630-32-57 08:15:0099[facility]annCHEM XIPJF1836-87-75 08:15:0022[facility] HermannCHEM KJQEF6793-38-65 08:15:21482Yzxyfzgy HermannCHEM IMVWN2491-07-97 08:34:002.6[facility]annCHEM TIDKV8915-99-40 08:34:05160Ayxmlaun HermannCHEM JGCQP7455-46-25 08:34:008.4 [facility]annCHEM XSMKS3116-93-53 08:34:0025[facility] HermannCHEM PANEL 2017-02-03 08:34:98094Zzdzgeqw HermannCHEM OJUEZ0084-63-97 08:34:0017[facility]annCHEM PJUSW6248-43-41 08:34:33096Qpmxttcl HermannCHEM DLTVG6040-43-46 08:34:000.41[facility]annCHEM ZJAQS4517-09-96 08:34:29798Oowxehjj HermannCHEM EJUXM0325-53-44 08:34:004.9[facility] HermannCHEM IIZPJ5139-36-94 08:34:0011.9 [facility]annCHEM MMWTI6956-56-07 08:34:002.2[facility] HermannCHEM PANEL 2017-02-03 08:34:000.31[facility] KxiacbuWJKMTAZKRU8198-77-89 08:34:0012.3[facility] FlayvffJWTOUGOYDU5201-02-97 08:34:0035.9[facility] MjuodzqDVSDSMZCKQ6434-44-73 08:34:0034.2[facility] KlpburfDSGPGZAONK0815-86-70 08:34:00 Test Item Value Reference Range Interpretation Comments MCH (test code = MCH) 30.9 pg 27.0-31.0 [facility] RklfoybTFBFTQZMMZ4627-79-40 08:34:0090.4[facility] HermannHEMATOLOGY 2017-02-03 08:34:006.9[facility] FtxvwysZQEEPSCQGC1763-63-20 08:34:003.97[facility] NvrpcgaPHJIXJWMWJ2900-96-81 08:34:0010.4[facility] HqggnnmUKIQLIDHHV4270-81-69 08:34:05915Ysbjbngl NjppfqqMPMXPJNRJJ0276-02-96 08:34:0013.5[facility] ISFYHYDDXY6853-94-58 08:34:001.7[facility] JzmsmycHSGCTLEDQN6740-11-70 08:34:00 15.3[facility] UjckxdaGCMYDEYRPN2421-59-09 08:34:0018.8[facility] HermannHEMATOLOGY 2017-02-03 08:34:0063.8[facility] RycmbtnEETHMNKQYS8517-49-40 08:34:001.3[facility] NdajklaRLDEUYRQEM5275-74-51 08:34:001.1[facility] JuzyfruHQJNZWYMAL9495-93-37 08:34:000.1[facility] YdznzdbQYQGPTRPQM8599-16-42 08:34:004.4[facility] PMHZBPTLFN6113-95-67 08:34:000.4[facility] HermannCHEM YGZTK8890-15-86 17:15:002.3 [facility]annCHEM KMLVN5411-78-69 07:26:001.8[facility] HermannCHEM PANEL 2017-02-02 07:26:002.0[facility] HermannCHEM XOEJU3252-68-65 07:26:000.59[facility]annCHEM EBSNW6103-45-24 07:26:0098[facility] HermannCHEM NVABM5103-97-71 07:26:008.2[facility] HermannCHEM QQAIS2263-89-44 07:26:00259Utlkcway HermannCHEM GZFYN0891-24-95 07:26:0011.5[facility] HermannCHEM YTZMX8485-49-03 07:26:0025 [facility]annCHEM ESPZO2228-41-57 07:26:000.47[facility] HermannCHEM PANEL 2017-02-02 07:26:004.5[facility] HermannCHEM YBPNU2119-75-49 07:26:14013Mdazizoy HermannCHEM MZCQY3451-07-89 07:26:0016[facility] HermannCHEM LRLZK2853-05-56 07:26:83641Jbqdibju IydcxoaJTBGWYFPZA0689-54-75 07:26:0013.6[facility] RURCKFNWID7017-52-51 07:26:49234Fthpyvyg MhgaxstDYDMUWNXKJ6941-61-57 07:26:009.6 [facility] QnisszpYZZUPNWTKS8085-18-65 07:26:006.6[facility]annHEMATOLOGY 2017-02-02 07:26:003.83[facility] RfiaykjTQABLWNBRY8638-32-67 07:26:0033.7[facility] LbokzuzEPDWHBYHGZ4579-27-56 07:26:00 Test Item Value Reference Range Interpretation Comments MCH (test code = MCH) 30.6 pg 27.0-31.0 [facility] PjydrhpVDOTYZLOJT6874-73-80 07:26:0011.7[facility] HermannHEMATOLOGY 2017-02-02 07:26:0034.8[facility] NnjgzooECZRXLOUJD6206-61-24 07:26:0090.8[facility] CnnoebsRTZLAIUZXE1517-22-96 07:26:000.1[facility] QelxmpcEKJRYEVWQK9911-42-21 07:26:000.9[facility] YyjwdbfQJFJMBENWS5459-80-96 07:26:001.8[facility] NQTKUZYZSN5331-47-45 07:26:000.7[facility] GrbbneyYWEUVCYAPF5423-68-81 07:26:003.8 [facility] TmqjdpoDBSAJTZLXA4211-14-20 07:26:001.1[facility] HermannHEMATOLOGY 2017-02-02 07:26:0026.8[facility] JtpapzxEKUCZHSVFG8883-52-36 07:26:0013.1[facility] IyoymobJUJBHLTSVH9203-29-24 07:26:0058.3[facility] HermannPARATHYROID PROFILE 2017-02-02 07:26:001.04[facility] HermannPARATHYROID PDFEAFZ5716-54-77 07:26:00 1.08[facility] HermannCHEM FKEAV0511-74-89 08:12:001.9[facility] HermannCHEM PANEL 2017-02-01 08:12:001.3[facility] HermannPARATHYROID ETAUINE1412-01-53 08:12:001.10 [facility]annPARATHYROID XNFTCDU9328-43-51 08:12:001.13[facility] DGHXLBBHJC0438-51-25 08:12:187580Aajmfopd TpcnoszTIBRTICHUQ4781-45-66 08:12:00 16.4[facility] HermannANEMIA VFUKW9835-60-75 18:42:198551Gcwvwmwa HermannCHEM NRADB7484-44-01 18:42:006.8[facility] HermannCHEM BAILJ7029-21-14 18:42:001.36 [facility]annCHEM QKUPE3430-54-89 18:42:001.5[facility] HermannHEMATOLOGY 2017-01-31 18:42:0021[facility] LeccyajOSFCKGDCWV8587-60-00 18:42:00<0.2 [facility] KoabqqiGQDZLRXSUW4960-67-31 18:42:00<0.2[facility] HermannIMMUNOLOGY 2017-01-31 18:42:0036.5[facility] HermannCHEM AZZVX8843-82-51 07:44:001.8[facility] HermannPARATHYROID WPYLOTT2546-45-96 07:44:001.11[facility] HermannPARATHYROID QLXCJFN3490-96-44 07:44:001.11[facility] JrnhaweCKBCFWUVVA0203-36-77 05:44:544001 [facility] OaccczqDALILXPEMJ7129-90-07 05:44:008.0[facility] HermannANEMIA STUDY 2017-01-29 15:25:984685Qmdhbfdo HermannCARDIAC MWHLVHT2660-31-89 15:25:000.010 [facility] HermannCARDIAC MILZOCC6782-25-33 15:25:000.11[facility] HermannCHEM PANEL 2017-01-29 15:25:005.4[facility] CgrfxffJPVPPQTCRF6706-99-49 15:25:005[facility] EvdrpuvJUGRGGCEYC6689-30-81 15:25:00Negative (01/29/17 10:25 AM)[facility] HRLDQLFINW2121-76-58 15:25:00Negative (01/29/17 10:25 AM)[facility] DJAQJVDIYI3214-41-06 15:25:0049.7[facility] CtahdevFFHQHURUFQ7119-67-36 15:25:00 <0.2[facility] JernsqfRTNUUPLVOP2619-30-91 15:25:00<0.2[facility] LGSVPKXRWP2056-48-38 15:25:00Negative (01/29/17 10:25 AM)[facility] HFHAMAUGWG2812-58-77 15:25:00Negative (01/29/17 10:25 AM)[facility] HermannCARDIAC LIOJCGT6213-99-66 07:45:000.015[facility] HermannCARDIAC FHKBXLL4174-08-48 07:45:000.18[facility] HermannCHEM ZEGRV3145-67-76 07:45:76716Ctyiempu HermannCHEM SZUKH8817-66-09 07:45:82708Xlvhxsbz HermannBACTERIAL - BUNGFRAP8216-91-70 05:17:00Urine *NA*(01/29/17 12:17 AM)[facility] HermannBACTERIAL - SEROLOGY 2017-01-29 05:17:00Negative (01/29/17 12:17 AM)[facility] HermannDRUG SCREEN 2017-01-29 05:17:00Negative *NA*(01/29/17 12:17 AM)[facility] HermannDRUG SCREEN 2017-01-29 05:17:00Negative *NA*(01/29/17 12:17 AM)[facility] HermannDRUG SCREEN 2017-01-29 05:17:00Negative *NA*(01/29/17 12:17 AM)[facility] HermannDRUG SCREEN 2017-01-29 05:17:00Positive *ABN*(01/29/17 12:17 AM)[facility] HermannDRUG SCREEN 2017-01-29 05:17:00Negative *NA*(01/29/17 12:17 AM)[facility] HermannDRUG SCREEN 2017-01-29 05:17:00See Note (01/29/17 12:17 AM)[facility] HermannDRUG SCREEN 2017-01-29 05:17:00Negative *NA*(01/29/17 12:17 AM)[facility] HermannDRUG SCREEN 2017-01-29 05:17:00Negative *NA*(01/29/17 12:17 AM)[facility] HermannBACTERIAL - XFGIHHJZ5360-23-69 02:31:00Negative (01/28/17 9:31 PM)[facility] HermannCARDIAC JABFVXG4524-08-41 02:31:000.017[facility] HermannCARDIAC RWUNLGA2506-19-07 02:31:000.15[facility] HermannCARDIAC IEIDFND8107-86-13 02:31:31173Waohzanr HermannCHEM ACDHK0813-97-29 02:31:000.5[facility] HermannCHEM UKYWK7413-53-97 02:31:0074[facility] HermannCHEM HVEHV3339-95-36 02:31:003.0[facility] HermannCHEM BEKRG3463-35-35 02:31:0036[facility] HermannCHEM SFEEP1367-56-33 02:31:006.0 [facility]annCHEM TKQEN4764-88-57 02:31:0032[facility] HermannCHEM PANEL 2017-01-29 02:31:003.0[facility] HermannCHEM JPAHM5506-08-01 02:31:001.0[facility] HermannCHEM BUXEE5596-65-75 02:31:0016[facility] TgjydkdPRKRAFUMSO0637-21-51 02:31:001.14[facility] ZamonijZOBWTPACIA1226-36-15 02:31:00 Test Item Value Reference Range Interpretation Comments PTT (test code = PTT) 29.4 s 22.9-35.8 [facility] OctpxeeLUUKUCYTTK2055-79-42 02:31:00 Test Item Value Reference Range Interpretation Comments PT (test code = PT) 14.6 s 12.0-14.7 [facility] PypiymjDZYSCF2478-76-39 02:31:0019[facility] KqnuteuMPZTSW3888-90-05 02:31:0096[facility] WrxhjmmJIXMLN4334-06-62 02:31:55739Vrdqksnp HermannLIPIDS 2017-01-29 02:31:0047[facility] QfoxkwgTDKRCD9802-68-48 02:31:0044[facility] AOBNRV3590-83-09 02:31:002.34[facility] HermannMOLECULAR PKGKVRMQGL5154-24-24 02:31:00Negative (01/28/17 9:31 PM)[facility] HermannMOLECULAR DIAGNOSTIC 2017-01-29 02:31:00Negative (01/28/17 9:31 PM)[facility] HermannMOLECULAR FFYKQAJXYN0814-28-35 02:31:00Negative (01/28/17 9:31 PM)[facility] MOLECULAR KIAFXHOAMZ1262-46-50 02:31:00Flocked [facility] Swab (01/28/17 9:31 PM) [facility]annSPECIAL QQMCCARWI4000-72-42 02:31:005.8[facility] HermannBODY PAYZQS2868-33-02 21:55:000[facility] HermannBODY TAQTPQ0280-01-78 21:55:002 [facility]annBODY MEYIOF5098-97-33 21:55:00Clear (01/28/17 4:55 PM)[facility] HermannBODY GYVOSZ7762-81-90 21:55:00Colorless (01/28/17 4:55 PM)[facility] HermannBODY WUQHOB2693-15-71 21:55:00 Test Item Value Reference Range Interpretation Comments Tube Num CSF (test code = Tube Num CSF) 4 1 [facility] HermannBODY JJNMZM1450-20-03 21:55:00Colorless (01/28/17 4:55 PM) [facility]annBODY BEUKJO1282-67-46 21:24:0061[facility] HermannBODY FLUIDS 2017-01-28 21:24:0047[facility] HermannBODY MASAUW6772-32-64 21:24:0067[facility] HermannBODY ZVHIXQ9789-87-92 21:24:00Clear (01/28/17 4:24 PM)[facility] BODY XFVAZI2871-90-27 21:24:001[facility] HermannBODY GUHIMC5161-93-90 21:24:00 Colorless (01/28/17 4:24 PM)[facility] HermannBODY FMLNAY0313-90-52 21:24:00 Colorless (01/28/17 4:24 PM)[facility] HermannBODY JLFKGK9620-95-55 21:24:00 Test Item Value Reference Range Interpretation Comments Tube Num CSF (test code = Tube Num CSF) 1 1 [facility] YzkwncjGMORNNZNDN8465-07-66 21:24:0026.4[facility] HermannIMMUNOLOGY 2017-01-28 21:24:995116.0[facility] UfjyfwyIWDCSFOPSQ5785-49-69 21:24:65425 [facility] LeqksvwQANFJYSWFE4716-81-51 21:24:004.5[facility] HermannIMMUNOLOGY 2017-01-28 21:24:000.6[facility] HermannURINE AND XSOPO0386-52-23 20:30:00Large *ABN*(01/28/17 3:30 PM)[facility]annURINE AND LLTZE2866-98-18 20:30:00 Negative *NA*(01/28/17 3:30 PM)[facility]annURINE AND XRALN9605-12-07 20:30:00Negative *NA*(01/28/17 3:30 PM)[facility]annUR[facility] AND KTIPV7330-26-36 20:30:00Negative (01/28/17 3:30 PM)[facility]annUR[facility] AND BPTMD4273-37-31 20:30:00Small *ABN*(01/28/17 3:30 PM)[facility]annUR[facility] AND GCSLL5187-71-27 20:30:000.2[facility]annURINE AND PYSYH6217-75-46 20:30:00Slight Cloudy (01/28/17 3:30 PM)[facility]annUR[facility] AND NBPKC6219-88-61 20:30:00 Test Item Value Reference Range Interpretation Comments UA Spec Grav (test code = UA Spec 1.025 1 Grav) [facility]annUR[facility] AND NHTLC5631-70-80 20:30:00 Test Item Value Reference Range Interpretation Comments UA pH (test code = UA pH) 6.5 1 5.0-8.0 [facility] AND RXFPD2011-56-57 20:30:00Negative (01/28/17 3:30 PM) [facility]UR[facility] AND FLASJ1400-29-71 20:30:00Yellow *NA*(01/28/17 3:30 PM) [facility]annCARDIAC EOYCJIW8818-03-43 20:00:0040[facility] HermannCHEM PANEL 2017-01-28 20:00:0021[facility] HermannCHEM EWBWR8963-94-07 20:00:005.2[facility] HermannCHEM RFVWY0342-11-14 20:00:0027[facility] HermannCHEM YOVYS8038-26-57 20:00:002.5[facility] HermannCHEM RILJK3029-07-73 20:00:0062[facility] HermannCHEM BSPEF7156-03-82 20:00:002.7[facility] HermannCHEM ZVUIB7243-91-90 20:00:000.4 [facility]annCHEM BKDDN4532-60-57 20:00:000.9[facility] HermannCHEM PANEL 2017-01-28 20:00:000.1[facility] HermannCHEM WSDHV0514-32-77 20:00:000.5[facility] XdnqvkaGZMKUEREQE1281-94-73 20:00:00Normal (01/28/17 3:00 PM)[facility] NRXADEWFJF3276-66-71 20:00:00Normal (01/28/17 3:00 PM)[facility]
[2020-07-08 09:59] LABS: Absolute Lymphocytes (CBC) 1.6 K/uL (0.7-4.9); Basophils % 0.7 % (0-1.3); Hematocrit 39.7 % (36.0-45.0); Lymphocytes % 21.7 % (15.3-44.8)
[2020-07-08 10:24] LABS: Potassium 3.6 mmol/L (3.5-5.1)
--- NOTE | 2020-07-08 11:32 | RAD REPORT ---
EXAM DESCRIPTION: US - Extrem Venous W Compress Nico - 07/08/2020 11:25 am CLINICAL HISTORY: edema Bilateral leg edema and swelling. COMPARISON: Extrem Venous W Compress Nico dated 09/08/2019 TECHNIQUE: Real-time sonographic interrogation of the left and right lower extremity deep venous sys tems was performed. FINDINGS: Normal compressibility, flow augmentation, phasic flow and spontaneous flow is identified in both the left and right lower extremity deep venous systems. IMPRESSION: No sonographic evidence of left or right lower extremity deep venous thrombosis.
--- NOTE | 2020-07-08 13:13 | RAD REPORT ---
EXAM DESCRIPTION: oCri Single View07/08/2020 12:54 pm CLINICAL HISTORY: Hypertension/edema COMPARISON: 2017 FINDINGS: The lungs appear clear of acute infiltrate. The heart is normal size IMPRESSION: No acute abnormalities displayed
--- NOTE | 2020-07-08 13:19 | EDPHYS ---
Physician Documentation [facility] Name: Amarilis Manjarrez Age: 79 yrs Sex: Female : 1940 Arrival Date: 07/08/2020 Time: 09:29 Bed 5 Private MD: Christine Houston ED Physician Veronica Martínez HPI: 07/08 09:50 This 79 yrs old Female presents to ER via Wheelchair with complaints of Leg jmm Swelling. 09:50 The patient presents with swelling. Onset: The symptoms/episode began/occurred jmm gradually. Modifying factors: The symptoms are alleviated by nothing. the symptoms are aggravated by nothing. Associated signs and symptoms: Pertinent negatives sob, fever. The patient has not experienced similar symptoms in the past. This is a 79 year old female with a history of htn that presents to the ED with complaints of bilateral leg swelling. Patient denies shortness of breath, chest pain, fever. . Historical: - Allergies: 09:32 PENICILLINS; aa5 - PMHx: 09:32 Hypertension; hyperthyroidism; Multiple Sclerosis; aa5 - PSHx: 09:32 Thyroidectomy; ; aa5 - Immunization history:: Adult Immunizations unknown. - Social history:: Smoking status: Patient denies any tobacco usage or history of. ROS: 09:50 Constitutional: Negative for fever, chills, and weight loss, Cardiovascular: Negative jmm for chest pain, palpitations, and edema, Respiratory: Negative for shortness of breath, cough, wheezing, and pleuritic chest pain, Abdomen/GI: Negative for abdominal pain, nausea, vomiting, diarrhea, and constipation. 09:50 MS/extremity: Positive for swelling. 09:50 All other systems are negative. Exam: 09:50 Constitutional: This is a well developed, well nourished patient who is awake, alert, jmm and in no acute distress. Head/Face: atraumatic. Eyes: EOMI, no conjunctival erythema appreciated ENT: Moist Mucus Membranes Neck: Trachea midline, Supple Chest/axilla: Normal chest wall appearance and motion. Cardiovascular: Regular rate and rhythm. No edema appreciated Respiratory: Normal respirations, no respiratory distress appreciated Abdomen/GI: Non distended, soft Back: Normal ROM Skin: General appearance color normal 09:50 Musculoskeletal/extremity: pitting edema noted to the legs bilaterally, dorsalis pulse intact bilaterally. 09:50 Skin: Appearance: Color: normal in color. 09:50 Neuro: Orientation: is normal, Mentation: is normal. 09:50 Psych: Behavior/mood is pleasant, cooperative. Vital Signs: 09:32 BP 140 / 75; Pulse 66; Resp 18 S; Temp 97.7(O); Pulse Ox 97% on R/A; aa5 10:43 BP 153 / 82; Pulse 65; Resp 17; Pulse Ox 99% on R/A; tw2 11:56 BP 153 / 83; Pulse 60; Resp 17; Pulse Ox 95% on R/A; tw2 12:50 BP 165 / 91; Pulse 64; Resp 17; Pulse Ox 100% on R/A; tw2 13:47 BP 156 / 89; Pulse 58; Resp 17; Pulse Ox 98% on R/A; tw2 MDM: 09:41 Patient medically screened. [facility] 13:17 Data reviewed: vital signs, nurses notes. Data reviewed: lab test result(s), radiologic [facility] studies, plain films. Medication response: ED course: No sob, no fever, cxr clear. I do not suspect acute chf exacerbation, infection. Advised to follow up with pcp and otherwise given strict return precautions. patient understood and agrees with the plan of care. . 07/08 09:42 Order name: BMP; Complete Time: 10:34 [facility] 07/08 09:42 Order name: CBC with Diff; Complete Time: 10:19 [facility] 07/08 09:42 Order name: US Extremity Venous W Compression Nico; Complete Time: 11:55 [facility] 07/08 09:43 Order name: PROBNP [facility] 07/08 09:43 Order name: NT PRO-BNP; Complete Time: 10:34 [facility] 07/08 12:20 Order name: Chest Single View XRAY; Complete Time: 13:17 [facility] 07/08 09:42 Order name: Saline Lock; Complete Time: 09:54 [facility] Administered Medications: No medications were administered Disposition: 18:49 Co-signature as Attending Physician, Veronica Martínez MD. ma2 Disposition: 07/08/20 13:19 Discharged to Home. Impression: Edema, unspecified. - Condition is Stable. - Discharge Instructions: Edema, Peripheral Edema. - Medication Reconciliation Form, Thank You Letter, Antibiotic Education, Prescription Opioid Use form. - Follow up: Christine Houston MD; When: Tomorrow; Reason: Recheck today's complaints, Continuance of care, Re-evaluation by your physician. Signatures: Dispatcher [employer] EDMS Shahram Benedict PA PA jmm Calderon, Audri, RN RN aa5 Mary Muñoz RN RN tw2 Veronica Martínez MD MD ma2 Corrections: (The following items were deleted from the chart) 13:49 13:19 07/08/2020 13:19 Discharged to Home. Impression: Edema, unspecified. Condition is tw2 Stable. Forms are Medication Reconciliation Form, Thank You Letter, Antibiotic Education, Prescription Opioid Use. Follow up: Christine Houston; When: Tomorrow; Reason: Recheck today's complaints, Continuance of care, Re-evaluation by your physician. [email or web address]
--- NOTE | 2020-07-08 13:19 | ER ---
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 Pt denies leg aa5 pain, denies SOB. Pt takes hydrochlorothiazide. 09:32 Coronavirus screen: At this time, the client does not indicate any symptoms associated aa5 with coronavirus-19. Ebola Screen: Patient negative for fever greater than or equal to 101.5 degrees Fahrenheit, and additional compatible Ebola Virus Disease symptoms. Initial Sepsis Screen: Does the patient meet any 2 criteria? No. Patient's initial sepsis screen is negative. Does the patient have a suspected source of infection? No. Patient's initial sepsis screen is negative. Risk Assessment: Do you want to hurt yourself or someone else? Unable to obtain. Onset of symptoms was June 2020. 09:32 Acuity: WILFRED 3 aa5 09:32 Method Of Arrival: Wheelchair aa5 Historical: - Allergies: 09:32 PENICILLINS; aa5 - PMHx: 09:32 Hypertension; hyperthyroidism; Multiple Sclerosis; aa5 - PSHx: 09:32 Thyroidectomy; ; aa5 - Immunization history:: Adult Immunizations unknown. - Social history:: Smoking status: Patient denies any tobacco usage or history of. Screenin:34 Abuse screen: Denies threats or abuse. Nutritional screening: No deficits noted. tw2 Tuberculosis screening: No symptoms or risk factors identified. Fall Risk None identified. Assessment: 09:52 General: Appears in no apparent distress. slender, well groomed, Behavior is calm, tw2 cooperative, appropriate for age. Pain: Denies pain. Neuro: Level of Consciousness is awake, alert, obeys commands, Oriented to person, place. Cardiovascular: Patient's skin is warm and dry. Edema is 2+ to left midcalf, left ankle, left foot, right midcalf, right ankle and right foot. Respiratory: Airway is patent Respiratory effort is even, unlabored, Respiratory pattern is regular, symmetrical. GI: No signs and/or symptoms were reported involving the gastrointestinal system. Abdomen is flat. : No signs and/or symptoms were reported regarding the genitourinary system. EENT: No signs and/or symptoms were reported regarding the EENT system. Derm: No signs and/or symptoms reported regarding the dermatologic system. Musculoskeletal: Range of motion: intact in all extremities. 10:43 Reassessment: Patient appears in no apparent distress at this time. No changes from tw2 previously documented assessment. Patient and/or family updated on plan of care and expected duration. Pain level reassessed. 11:56 Reassessment: Patient appears in no apparent distress at this time. No changes from tw2 previously documented assessment. Patient and/or family updated on plan of care and expected duration. Pain level reassessed. 12:50 Reassessment: Patient appears in no apparent distress at this time. No changes from tw2 previously documented assessment. Patient and/or family updated on plan of care and expected duration. Pain level reassessed. 13:48 Reassessment: Patient appears in no apparent distress at this time. No changes from tw2 previously documented assessment. Patient and/or family updated on plan of care and expected duration. Pain level reassessed. Vital Signs: 09:32 BP 140 / 75; Pulse 66; Resp 18 S; Temp 97.7(O); Pulse Ox 97% on R/A; aa5 10:43 BP 153 / 82; Pulse 65; Resp 17; Pulse Ox 99% on R/A; tw2 11:56 BP 153 / 83; Pulse 60; Resp 17; Pulse Ox 95% on R/A; tw2 12:50 BP 165 / 91; Pulse 64; Resp 17; Pulse Ox 100% on R/A; tw2 13:47 BP 156 / 89; Pulse 58; Resp 17; Pulse Ox 98% on R/A; tw2 ED Course: 09:29 Patient arrived in ED. am2 09:29 Christine Houston MD is Private Physician. am2 09:30 Shahram Benedict PA is PHCP. jmm 09:30 Veronica Martínez MD is Attending Physician. jmm 09:35 Bed in low position. Call light in reach. Adult w/ patient. Pulse ox on. NIBP on. tw2 09:38 Muñoz, Mary, RN is Primary Nurse. tw2 09:43 Triage completed. aa5 09:45 Inserted saline lock: 22 gauge in right antecubital area, using aseptic technique. tw2 Blood collected. 09:52 Arm band placed on. tw2 11:25 US Extremity Venous W Compression Lev In Process Unspecified. EDMS 12:52 Chest Single View XRAY In Process Unspecified. EDMS 13:18 Christine Houston MD is Referral Physician. [facility] 13:48 No provider procedures requiring assistance completed. IV discontinued, intact, tw2 bleeding controlled, No redness/swelling at site. Pressure dressing applied. Administered Medications: No medications were administered Outcome: 13:19 Discharge ordered by MD. jm 13:49 Discharged to home via wheelchair, c/g tw2 13:49 Condition: stable 13:49 Discharge instructions given to patient, network control operator, Instructed on discharge instructions, follow up and referral plans. Demonstrated understanding of instructions, follow-up care. 13:49 Patient left the ED. tw2 Signatures: Dispatcher [employer] EDMS Shahram Benedict PA PA jmm Calderon, Audri, RN RN aa5 Mary Muñoz RN RN tw2 Florina Marcelo am2
[2020-07-08 14:07] VITALS: TEMP 97.7
[2020-07-08 14:12] VITALS: BP 156/89; O2SAT 98
== END 2020-07-08 13:49 | disposition home or self-care (01) ==
LOC: ER 09:28
DX: R60.9 Edema, unspecified (principal); I10 Essential (primary) hypertension; G35 Multiple sclerosis; Z88.0 Allergy status to penicillin
CPT/HCPCS: 36415; 71045; 80048; 83880; 85025; 93970; 99284

== ENCOUNTER 2021-07-06 20:40 | Emergency (ER) | payer OTHER ==
--- OUTSIDE RECORDS SUMMARY | 2021-07-06 20:44 | XMS REPORT | Continuity of Care Document ---
:1940 Author Organization [facility] t Address [address] [place] [address] Care Team Providers Name Role Phone Yelitza Houston Attending Clinician Unavailable David Attending Clinician Unavailable Steven Attending Clinician Unavailable Problems This patient has no known problems. Allergies, Adverse Reactions, Alerts Allergy Allergy Status Severity Reaction(s) Onset Inactive Treating Comm ents Source Name Type Date Date Clinician PCN Adverse Active Info Not [facility] Reaction Available [facility] Medications Ordered Filled Start Stop Current Ordering Indication Dosage Frequency Signature Comments Components Source Medication Medication Date Date Medication? Clinician (SIG) Name Name Oxybutynin Oxybutynin 2017-2020- No Susan [address] [facility] Chloride ER Chloride ER 5-25 05-10 [facility] Vitamin Vitamin Yes [facility] 1 tablet [facility] Procedures This patient has no known procedures. Encounters Start End Encounter Admission Attending Care Care Encounter Source Date/Time Date/Time Type Type Clinicians Facility Department ID 2021-05-06 Outpatient [facility] [id number] [facility] 14[facility]39:09 [id number] [facility] 2021-05-06 Outpatient Christine Houston [facility] [place] [facility] [place] [id number] [facility] 14:29:50 [id number] [facility] 2021-05-06 Outpatient Christine Houston [facility] [place] [facility] [place] [id number] [facility] 14:10:52 [id number] [facility] 2021-05-06 Outpatient Christine Houston [facility] [place] [facility] [place] [id number] [facility] 14:02:55 [id number] [facility] 2021-05-06 Outpatient Houston Na [facility] [place] [facility] [place] [id number] [facility] 13[facility]48:27 [id number] [facility] 2021[facility]05-06 Outpatient Christine Houston [facility] [place] [facility] [place] [id number] [facility] 13:47:41 [id number] [facility] 2021-05-06 Outpatient Celso, Na [facility] [id number] [facility] 13:27:40 [id number] [facility] 2021-05-06 Outpatient Celso, Na [facility] [id number] [facility] 12:54:20 [id number] [facility] 2021-05-06 Outpatient Houston, Na [facility] [id number] [facility] 12:53:57 [id number] [facility] 2021-05-06 Outpatient Celso, Na [facility] [id number] [facility] 12:46:55 [id number] [facility] 2021-05-06 Outpatient Celso, Na [facility] [id number] [facility] 12:46:23 [id number] [facility] 2021-05-06 Outpatient Celso, Na [facility] [id number] [facility] 12:30:33 [id number] [facility] 2021-05-06 Outpatient Celso, Na [facility] [id number] [facility] 12:25:21 [id number] [facility] 2021-05-06 Outpatient Zeyad Hernandez [facility] [id number] [facility] 12:21:24 [id number] [facility] 2021-05-06 Outpatient Zeyad Hernandez [facility] [id number] [facility] 12:20:36 [id number] [facility] 2021-05-06 Outpatient Zeyad Hernandez [facility] [id number] [facility] 12:08:24 [id number] [facility] 2021-05-06 Outpatient Steven, [facility] [id number] 11:37:12 Susan [id number] [facility] 2021-05-06 Outpatient Steven, [facility] [id number] 11:[facility]:31 Susan [id number] [facility] 2021-05-06 Outpatient Meetender, [facility] [id number] [facility] 10:58:43 Susan [id number] [facility] 2021-05-06 Outpatient Steven, [facility] [id number] [facility] 10:57:46 Susan [id number] [facility] 2021-05-22 2021-05-22 ambulatory [facility] [id number] [facility]00 [facility] 2021-05-06 2021-05-06 ambulatory [facility] [id number] [facility]00 [facility] 2021-04-23 2021-04-23 ambulatory [facility] [id number] [facility]00 [facility] 2021-04-20 2021-04-20 ambulatory [facility] [id number] [facility]00 [facility] 2021-04-20 2021-04-20 ambulatory [facility] [id number] [facility] 2021-04-16 2021-04-16 ambulatory [facility] [id number] [facility] 2021-04-15 2021-04-15 ambulatory [facility] [id number] [facility] 2021-04-13 2021-04-13 ambulatory [facility] [id number] [facility]00 [facility] 2021-04-09 2021-04-09 ambulatory [facility] [id number] [facility] 2021-03-30 2021-03-30 ambulatory [facility] [id number] [facility] 2021-02-20 2021-02-20 ambulatory [facility] [id number] [facility] 2021-02-19 2021-02-19 ambulatory [facility] [id number] [facility]00 [facility] 2021-02-13 2021-02-13 ambulatory [facility] [id number] [facility]00 [facility] 2021-02-06 2021-02-06 ambulatory [facility] [id number] [facility] 2021-01-26 2021-01-26 Outpatient [facility] [id number] [facility] 2021-01-26 2021-01-26 Outpatient [facility] [id number] [facility] 2021-01-22 2021-01-22 Outpatient [facility] [id number] [facility] 2020 2020 Outpatient [facility] [id number] [facility] 2020-12-22 2020-12-22 Outpatient [facility] [id number] [facility] 2020-12-19 2020-12-19 Outpatient [facility] [id number] [facility] 2020-11-20 2020-11-20 Outpatient [facility] [id number] [facility] 2020-11-12 2020-11-12 Outpatient [facility] [id number] [facility] 2020-11-12 2020-11-12 Outpatient [facility] [id number] [facility] 2020-08-14 2020-08-14 Outpatient [facility] [id number] [facility] 2020-08-08 2020-08-08 Outpatient [facility] [id number] [facility] 2020-08-01 2020-08-01 Outpatient [facility] [id number] [facility] 2020-07-30 2020-07-30 Outpatient [facility] [id number] [facility] 2020-07-10 2020-07-10 Outpatient [facility] [id number] [facility] 2020-07-07 2020-07-07 Outpatient [facility] [id number] [facility] 2020-05-22 2020-05-22 Outpatient [facility] [id number] [facility] 2020-04-30 2020-04-30 Outpatient [facility] [id number] [facility] 2020-04-24 2020-04-24 Outpatient [facility] [id number] [facility] 2020-04-22 2020-04-22 Outpatient [facility] [id number] [facility] 2020-02-22 2020-02-22 Outpatient [facility] [id number] [facility] 2020-01-21 2020-01-21 Outpatient [facility] [id number] [facility] 2020-01-16 2020-01-16 Outpatient [facility] [id number] [facility] 2020-01-16 2020-01-16 Outpatient [facility] [id number] [facility] 2019-11-21 2019-11-21 [facility] [id number] [facility] 15[facility]40:00 15:40:00 t [facility] l Medicine Outpati ent Clinics 2019-04-18 2019-04-18 [facility] [id number] [facility] 10:00:00 10:00:00 t [facility] Medicine l Medicine Outpati ent Clinics 2019-04-13 2019-04-13 [facility] [id number] [facility] 09:45:00 09:45:00 t [facility] Medicine l Medicine Outpati ent Clinics 2019-02-08 2019-02-08 [facility] [id number] [facility] 09:36:00 09:36:00 t [email or web address] - [facility] Outpati ent Clinics 2019-01-24 2019-01-24 [facility] [id number] [facility] 11:40:00 11:40:00 t [facility] Medicine Outpati ent Clinics 2019-01-11 2019-01-11 [facility] [id number] [facility] 10:20:00 10:20:00 t [facility] Medicine Outpati ent Clinics 2018-10-23 2018-10-23 [facility] [id number] 10:00:00 10:00:00 t [facility] Medicine Outpati ent Clinics 2018-10-18 2018-10-18 [facility] [id number] [facility] 09:40:00 09:40:00 t [facility] Medicine Outpati ent Clinics 2018-08-25 2018-08-25 [facility] [id number] [facility] 11:00:00 11:00:00 t [facility] Medicine Outpati ent Clinics 2018-08-11 2018-08-11 [facility] [id number] [facility] 00:31:00 00:31:00 t [facility] Medicine Outpati ent Clinics 2018-08-07 2018-08-07 [facility] [id number] [facility] 11:22:00 11:22:00 t [facility] Medicine Outpati ent Clinics 2018-07-21 2018-07-21 [facility] [id number] 10:34:00 10:34:00 t [facility] Medicine Outpati ent Clinics 2018-07-16 2018-07-16 [facility] [id number] [facility] 09:04:00 09:04:00 t [facility] Outpati ent Clinics 2018-07-14 2018-07-14 [facility] [id number] [facility] 17:22:00 17:22:00 [facility] Outpati ent Clinics 2018-07-14 2018-07-14 [facility] [id number] [facility] 16:07:00 16:07:00 [facility] Outpat[facility] Clinics 2018-07-14 2018-07-14 [facility] [id number] 14:15:00 14:15:00 t Urgent Urgent Care L [email or web address] - [facility] l Outpati ent Clinics 2018-07-14 2018-07-14 [facility] [id number] 10:32:00 10:32:00 t [facility] Medicine Outpati ent Clinics 2018-07-12 2018-07-12 [facility] [id number] [facility] 16:40:00 16:40:00 t [facility] Medicine Outpati ent Clinics 2018-06-08 2018-06-08 [facility] [id number] [facility] 12:19:00 12:19:00 t [facility] Medicine Outpati ent Clinics 2018-04-13 2018-04-13 [facility] [id number] [facility] 21:00:00 21:00:00 t [facility] Medicine Outpati ent Clinics 2018-04-13 2018-04-13 [facility] [id number] [facility] 09:00:00 09:00:00 t [facility] Medicine Outpati ent Clinics 2018-04-12 2018-04-12 [facility] [id number] [facility] 09:10:00 09:10:00 t [facility] Medicine Outpati ent Clinics 2018-01-13 2018-01-13 [facility] [id number] [facility] 01:01:00 01:01:00 t [facility] Medicine Outpati ent Clinics 2018-01-12 2018-01-12 [facility] [id number] [facility] 10:30:00 10:30:00 t [facility] Medicine Outpati ent Clinics 2017-12-30 2017-12-30 [facility] [id number] [facility] 08:47:00 08:47:00 t [facility] Medicine Outpati ent Clinics 2017-12-05 2017-12-05 [facility] [id number] [facility] 16:26:00 16:26:00 t [facility] Medicine Outpati ent Clinics 2017-11-24 2017-11-24 [facility] [id number] [facility] 08:39:00 08:39:00 t [facility] Medicine Outpati ent Clinics 2017-11-02 2017-11-02 [facility] [id number] [facility] 11:11:00 11:11:[address] [facility] Medicine Outpati ent Clinics 2017-09-29 2017-09-29 [facility] [id number] [facility] 10:29:00 10:29:[address] [facility] Medicine Outpati ent Clinics 2017-09-27 2017-09-27 [facility] [id number] [facility] 11:22:00 11:22:[address] [facility] Medicine Outpati ent Clinics 2017-09-02 2017-09-02 [facility] [id number] [facility] 14:00:00 14:00:[address] [facility] Medicine Outpati ent Clinics Results This patient has no known results.
[2021-07-06] MEDS ORDERED: HYDRALAZINE HCL 20 MG/ML VIAL ONE (20:57)
--- NOTE | 2021-07-06 21:55 | ER ---
Nurse's Notes [facility] Name: Amarilis Manjarrez Age: 80 yrs Sex: Female : 1940 Arrival Date: 07/06/2021 Time: 20:42 Bed 8 Private MD: Diagnosis: Essential (primary) hypertension Presentation: 07/06 20:45 Chief complaint: EMS states: High blood pressure. Coronavirus screen: Vaccine status: tw5 unknown. Ebola Screen: Patient negative for fever greater than or equal to 101.5 degrees Fahrenheit, and additional compatible Ebola Virus Disease symptoms Patient denies exposure to infectious person. Patient denies travel to an Ebola-affected area in the 21 days before illness onset. Initial Sepsis Screen: Does the patient meet any 2 criteria? Temp <36.0*C (96.8*F)) or > 38.3*C (100.9*F). Does the patient have a suspected source of infection? No. Patient's initial sepsis screen is negative. Risk Assessment: Do you want to hurt yourself or someone else? Patient reports no desire to harm self or others. Onset of symptoms is unknown. 20:45 Method Of Arrival: EMS: [facility] tw5 20:45 Acuity: WILFRED 3 tw5 Triage Assessment: 20:49 General: Appears in no apparent distress. comfortable, Behavior is calm, cooperative, tw5 appropriate for age. Pain: Denies pain. Neuro: Level of Consciousness is awake, alert, obeys commands, Oriented to person. Historical: - Allergies: 20:49 PENICILLINS; tw5 - PMHx: 20:49 Dementia; Hypertension; hyperthyroidism; Multiple Sclerosis; tw5 - Immunization history:: unable to obtain. - Social history:: Smoking status: unknown. Screenin:55 Abuse screen: Denies threats or abuse. Denies injuries from another. Nutritional tw5 screening: No deficits noted. Tuberculosis screening: No symptoms or risk factors identified. Fall Risk Mental Status- Overestimates/Forgets Limitations (15 pts.). Assessment: 20:55 General: Appears in no apparent distress. Behavior is calm, cooperative, appropriate tw5 for age. Neuro: Level of Consciousness is awake, alert, obeys commands, Oriented to person. Respiratory: No deficits noted. 22:07 Reassessment: Patient states symptoms have improved. tw5 Vital Signs: 20:45 BP 187 / 103; Pulse 58; Resp 18; Temp 96(A); Pulse Ox 100% on R/A; Weight 72.57 kg; tw5 Height 5 ft. 4 in. (162.56 cm); 21:18 BP 176 / 102; Pulse 59; Resp 17; Pulse Ox 100% on R/A; kd3 21:30 BP 174 / 91; Pulse 62; Resp 15; Pulse Ox 98% on R/A; kd3 21:35 BP 161 / 102; Pulse 63; Resp 17; Pulse Ox 99% on R/A; kd3 22:07 BP 171 / 93; tw5 22:07 BP 172 / 93; Pulse 66; Resp 18; Pulse Ox 98% on R/A; tw5 20:45 Body Mass Index 27.46 (72.57 kg, 162.56 cm) tw5 ED Course: 20:42 Patient arrived in ED. mw2 20:42 Nick Casiano PA is PHCP. jr8 20:42 Jc Arizmendi MD is Attending Physician. jr8 20:45 Rahel Fall is Primary Nurse. tw5 20:49 Triage completed. tw5 20:49 Arm band placed on right wrist. tw5 20:55 Awaiting: Awaiting Medication followup. tw5 20:55 Patient has correct armband on for positive identification. Bed in low position. Call tw5 light in reach. Side rails up X2. [facility] on. Pulse ox on. NIBP on. Door closed. Noise minimized. Moved to private room. Warm blanket given. Verbal reassurance given. 20:56 EKG done, by ED staff, reviewed by Nick MIRELES. tw5 21:04 Inserted saline lock: 20 gauge in right antecubital area, using aseptic technique. oe 22:07 Awaiting transportation. tw5 22:07 No provider procedures requiring assistance completed. IV discontinued, intact, tw5 bleeding controlled, No redness/swelling at site. Pressure dressing applied. Administered Medications: 21:09 Drug: hydrALAZINE 10 mg Route: IVP; Site: right antecubital; kd3 22:07 Follow up: BP 171 / 93; Response: No adverse reaction; Blood pressure is lowered tw5 Outcome: 21:55 Discharge ordered by . jr8 22:00 Discharged to correction. [facility] called to [facility] at [facility] tw5 22:07 Condition: improved tw5 22:07 Discharge instructions given to correction, Instructed on discharge instructions, follow up and referral plans. 22:08 Patient left the ED. tw5 Signatures: Nick Casiano PA PA jr8 Dru Moore MyKena mw2 Rahel Fall tw5 Tracee Rhoades, RN RN kd3
--- NOTE | 2021-07-06 21:55 | EDPHYS ---
Physician Documentation [facility] Name: Amarilis Manjarrez Age: 80 yrs Sex: Female : 1940 Arrival Date: 07/06/2021 Time: 20:42 Bed 8 Private MD: ED Physician Jc Arizmendi HPI: 07/06 20:54 This 80 yrs old Female presents to ER via EMS with complaints of Hypertension . jr8 20:54 This is a 80-year-old female who presented emergency room via EMS after being called jr out for hypertension. Patient currently asymptomatic and without complaints. Assisted living facility took her blood pressure tonight and noticed that it was elevated. Was given p.o. metoprolol and hydralazine prior to arrival. EMS stated that she was still 200 systolic via manual cuff when they arrived. Was transported at that time for further evaluation.. Severity of symptoms: At their worst the symptoms were mild in the emergency department the symptoms are unchanged. It is unknown whether or not the patient has had similar symptoms in the past. The patient has not recently seen a physician. Historical: - Allergies: 20:49 PENICILLINS; tw5 - PMHx: 20:49 Dementia; Hypertension; hyperthyroidism; Multiple Sclerosis; tw5 - Immunization history:: unable to obtain. - Social history:: Smoking status: unknown. ROS: 20:54 Eyes: Negative for injury, pain, redness, and discharge, ENT: Negative for injury, jr8 pain, and discharge, Neck: Negative for injury, pain, and swelling, Cardiovascular: Negative for chest pain, palpitations, and edema, Respiratory: Negative for shortness of breath, cough, wheezing, and pleuritic chest pain, Abdomen/GI: Negative for abdominal pain, nausea, vomiting, diarrhea, and constipation, Back: Negative for injury and pain, MS/Extremity: Negative for injury and deformity, Skin: Negative for injury, rash, and discoloration, Neuro: Negative for headache, weakness, numbness, tingling, and seizure. Exam: 20:54 Constitutional: This is a well developed, well nourished patient who is awake, alert, jr8 and in no acute distress. Neck: Trachea midline, no thyromegaly or masses palpated, and no cervical lymphadenopathy. Supple, full range of motion without nuchal rigidity, or vertebral point tenderness. No Meningismus. Cardiovascular: Regular rate and rhythm with a normal S1 and S2. No gallops, murmurs, or rubs. Normal PMI, no JVD. No pulse deficits. Respiratory: Lungs have equal breath sounds bilaterally, clear to auscultation and percussion. No rales, rhonchi or wheezes noted. No increased work of breathing, no retractions or nasal flaring. Abdomen/GI: Soft, non-tender, with normal bowel sounds. No distension or tympany. No guarding or rebound. No evidence of tenderness throughout. Skin: Warm, dry with normal turgor. Normal color with no rashes, no lesions, and no evidence of cellulitis. MS/ Extremity: Pulses equal, no cyanosis. Neurovascular intact. Full, normal range of motion. Neuro: Awake and alert, GCS 15, oriented to person, place, time, and situation. Motor strength 5/5 in all extremities. Sensory grossly intact. Vital Signs: 20:45 BP 187 / 103; Pulse 58; Resp 18; Temp 96(A); Pulse Ox 100% on R/A; Weight 72.57 kg; tw5 Height 5 ft. 4 in. (162.56 cm); 21:18 BP 176 / 102; Pulse 59; Resp 17; Pulse Ox 100% on R/A; kd3 21:30 BP 174 / 91; Pulse 62; Resp 15; Pulse Ox 98% on R/A; kd3 21:35 BP 161 / 102; Pulse 63; Resp 17; Pulse Ox 99% on R/A; kd3 22:07 BP 171 / 93; tw5 22:07 BP 172 / 93; Pulse 66; Resp 18; Pulse Ox 98% on R/A; tw5 20:45 Body Mass Index 27.46 (72.57 kg, 162.56 cm) tw5 MDM: 20:42 Patient medically screened. jr8 21:54 Data reviewed: vital signs, nurses notes, EKG. Data interpreted: Pulse oximetry: on jr8 room air is 99 %. Interpretation: normal. Counseling: I had a detailed discussion with the patient and/or guardian regarding: the historical points, exam findings, and any diagnostic results supporting the discharge/admit diagnosis, the need for outpatient follow up, a family practitioner, to return to the emergency department if symptoms worsen or persist or if there are any questions or concerns that arise at home. Response to treatment: the patient's symptoms have markedly improved after treatment. ED course: Patient is remained asymptomatic while in the emergency room. EKG without acute findings. Blood pressure went from the 180 systolic down to the 160s systolic. Patient doing well otherwise. We will have her follow-up with primary care and to return if she were to become symptomatic.. 07/06 20:53 Order name: EKG - Nurse/Tech; Complete Time: 20:56 jr8 07/06 20:53 Order name: IV; Complete Time: 21:05 jr8 Administered Medications: 21:09 Drug: hydrALAZINE 10 mg Route: IVP; Site: right antecubital; kd3 22:07 Follow up: BP 171 / 93; Response: No adverse reaction; Blood pressure is lowered tw5 Disposition: 23:26 Co-signature as Attending Physician, Jc Arizmendi MD. rn Disposition Summary: 07/06/21 21:55 Discharge Ordered Location: Home jr8 Problem: new jr8 Symptoms: have improved jr8 Condition: Stable jr8 Diagnosis - Essential (primary) hypertension jr8 Followup: jr8 - With: Private Physician - When: 1 - 2 days - Reason: Recheck today's complaints, Continuance of care, Re-evaluation by your physician Discharge Instructions: - Discharge Summary Sheet jr8 - Hypertension, Adult jr8 Forms: - Medication Reconciliation Form jr8 - Thank You Letter jr8 - Antibiotic Education jr8 - Prescription Opioid Use jr8 - SBAR form mw2 Signatures: Jc Arizmendi MD MD rn Roszak, Josh, PA PA jr8 Rahel Fall tw5 Tracee Rhoades RN RN kd3
[2021-07-06 23:34] VITALS: TEMP 96
[2021-07-06 23:39] VITALS: BP 172/93; O2SAT 98
--- NOTE | 2021-07-07 12:34 | EKG ---
Test Date: 2021-07-06 Test Time: 20:58:09 Yarder Puncher: MIRZA MEASUREMENT RESULTS: Intervals: Rate: 55 LA: 170 QRSD: 84 QT: 450 QTc: 430 [place]: P: 64 LA: 170 QRS: 64 T: 52 INTERPRETIVE STATEMENTS: Sinus bradycardia Nonspecific ST abnormality Abnormal ECG Compared to ECG 05/30/2017 17:11:15 No significant changes Electronically Signed On 07-07-21 12:33:07 CDT by Len Antonio
== END 2021-07-06 22:08 | disposition home or self-care (01) ==
LOC: ER 20:40
DX: I10 Essential (primary) hypertension (principal); F03.90 Unspecified dementia, unspecified severity, without behavioral disturbance, psychotic disturbance, mood disturbance, and anxiety; Z88.0 Allergy status to penicillin
CPT/HCPCS: 93005; 96374; 99284; J0360